=== PATIENT | female | born 1945 | race Caucasian/White ===

== ENCOUNTER 2022-03-26 12:48 | Outpatient (CLI) | payer MEDICARE, OTHER, SELFPAY | END 2022-03-26 12:49 | disposition home or self-care (01) | PROVIDERS: PCP Family Medicine; Visit Provider Family Medicine | DX: R01.1 Cardiac murmur, unspecified (principal); I51.7 Cardiomegaly; I34.0 Nonrheumatic mitral (valve) insufficiency | CPT/HCPCS: 93306 ==

== ENCOUNTER 2022-04-11 14:15 | Emergency (ER) | payer MEDICARE, OTHER, SELFPAY ==
[2022-04-11 14:27] VITALS: BP 147/74; PULSE 60; RESP 18; TEMP 36.4; O2SAT 98; BMI 24.0
--- NOTE | 2022-04-11 15:17 | ED_ITS ---
HPI - General Adult General Time Seen by Provider: 14:50 Date Seen: 04/11/22 Chief complaint: Unspecified Complaint, Adult Stated complaint: Covid+ Weak Diabetic Time Seen by Provider: 04/11/22 14:41 Source: patient, family and RN notes reviewed Mode of arrival: ambulatory Limitations: no limitations History of Present Illness HPI narrative: Jai is a very pleasant 77-year-old female with a history of type 2 diabetes, rheumatoid arthritis, and episodes of hypoglycemia who comes to the emergency room for evaluation of COVID symptoms. She and her are thinking that she would like Paxilovid. They did not come initially because they were hoping that this illness would resolve. Patient's had COVID recently and is feeling better. Patient tested when she was asymptomatic on ThursdayApril 07. She was positive. That evening she developed a runny nose, occasional diarrhea, and fatigue. She has continued to have those symptoms and her main complaint is that she has no appetite. She has some mild stomach discomfort. She has not had any vomiting. She does not have a fever. Denies shortness of breath or chest pain. Six weeks ago she had an episode of hypoglycemia and her primary MD Dr. Acosta took her off glipizide. She has had no subsequent problems. She is worried about eating because she is a diabetic. Patient has had continuing but not worsening fatigue and has been sleeping quite a bit. She denies history of DVT, calf tenderness or lower extremity edema. Related Data Home Medications Medication Instructions Recorded Confirmed atenolol 50 mg tablet mg 04/11/22 blood sugar diagnostic (Accu-Chek 04/11/22 04/11/22 Arlette Plus test strips) cyanocobalamin (vitamin B-12) mcg PO 04/11/22 1,000 mcg tablet,extended release glipizide 2.5 mg tablet, extended mg PO 04/11/22 release 24 hr hydrochlorothiazide 25 mg tablet mg 04/11/22 levothyroxine 100 mcg tablet mcg 04/11/22 levothyroxine 75 mcg tablet mcg 04/11/22 (Euthyrox) losartan 100 mg tablet mg 04/11/22 metformin 1,000 mg tablet mg 04/11/22 omeprazole 20 mg capsule,delayed mg 04/11/22 release simvastatin 20 mg tablet mg 04/11/22 triamcinolone acetonide 0.1 % applic TOPICAL 04/11/22 topical cream Allergies Allergy/AdvReac Type Severity Reaction Status Date / Time Sulfa Antibiotics Allergy Unknown Unknown Uncoded 04/02/22 13:52 Review of Systems Status of ROS: Reports: 10 or more systems reviewed and unremarkable except as noted in History and below Const: Reports: fatigue; Denies: fever or chills ENMT: Denies: throat pain Cardio: Denies: chest pain or shortness of breath with exertion Resp: Denies: shortness of breath or cough GI: Reports: abdominal pain and other (Anorexia) : Denies: painful urination Musculo: Denies: back pain Integ/Breast: Denies: rash Neuro: Denies: headache Endo: Reports: fatigue PFSH PFSH Medical History History of benign breast biopsy (1972) History of chronic cough Surgical History History of arthroscopy of left knee (2001) History of cataract extraction (2018) History of colonoscopy (03/02/13) History of hysterectomy for benign disease (2002) History of tonsillectomy and adenoidectomy (194) Family History Son Asthma Sister Breast cancer Mother Diabetes Father Heart disease Social History (Updated 04/02/22 @ 13:55 by Gerson Pate) Narrative: Exercise involving walking. 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 Non-smoker Rarely consumes alcohol Do you use any of these nicotine containing products: None Second hand tobacco smoke exposure: No How often do you have a drink containing alcohol: monthly or less How often do you have six or more drinks on one occasion: Never AUDIT-C Alcohol total score: 1 Non-prescribed substance use: denies use Exam Const: Vital Signs, click to edit/add: Vital Signs - 24 hr 04/11/22 14:27 04/11/22 17:33 Temperature 97.6 F Pulse Rate [Left P ulse Oximeter] 60 59 L Respiratory Rate 18 18 Blood Pressure [Le ft Upper Arm] 147/74 H 121/72 Pulse Oximetry 98 99 Documenting provider has reviewed patient's vital signs: yes Common normals: no apparent distress and oriented x3 General appearance: cooperative, comfortable and other (Gilchrist who answers most of her questions.) HENMT: Common normals: normocephalic and external ears normal Head and scalp: normocephalic Face and sinus: normal facial exam External ear: external ears normal Mouth: oral and palatal mucosa normal Eye: General eye: normal appearance of both eyes Neck & C-Spine: Common normals: full ROM, no lymphadenopathy and supple Resp: Common normals: normal respiratory effort and clear to auscultation bilaterally Auscultation: clear to auscultation bilaterally Cardio: Common normals: regular rate and regular rhythm Rate: regular rate Rhythm: regular rhythm GI: Common normals: Normal to inspection, nondistended, normoactive bowel sounds present, soft to palpation and non-tender Palpation: soft : Common normals: no CVA tenderness Bladder/kidney exam: no CVA tenderness Back & Pelvis: Common normals: no CVA tenderness Extremity: Common normals: normal to inspection and no pedal edema Neuro: Common normals: oriented x3 Psych: Common normals: mental status grossly normal Skin: Common normals: no rashes or lesions noted General skin exam: no rashes or lesions noted Course Course Hospital Course: At this time patient is stable with reassuring vital signs, normal oximetry, denying chest pain or shortness of breath and certainly given her age is a marcia date for Paxilovid. We will check a creatinine with a basic panel and cross check with her current medications. Reevaluation(s) Reevaluation #1: Patient has a creatinine of 1.4 but a creatinine clearance of 33. Given how close she was to the threshold greater than 30 for the use of packs of it I did talk to patient and her about risks and benefits. I then suggested the use of monoclonal antibodies as an alternative. They thought that would be a good idea. Unfortunately I was unable to obtain on appointment for them. I did talk to [facility]. They did take the information and said they would evaluate and call patient. The triage nurse was not sure that they would be open on the weekend. I am fearful that Jai will not actually have her information looked at until Thursday. I then spoke with 2 different facilities in the [facility] using the [facility] monoclonal antibody auctioneer tobacco. I was unable to obtain any appointments. With this I called patient back and suggested the use of remdesivir for 3 days. We spoke of risks and benefits and they were receptive to this plan. Vital Signs Vital signs: Initial Vital Signs Temperature 97.6 F 04/11/22 14:27 Temperature Source Temporal Artery Scan 04/11/22 14:27 Pulse Rate 60 04/11/22 14:27 Respiratory Rate 18 04/11/22 14:27 Blood Pressure 147/74 H 04/11/22 14:27 Blood Pressure Mean 98 04/11/22 14:27 Blood Pressure Position Sitting 04/11/22 14:27 Pulse Oximetry 98 04/11/22 14:27 Oxygen Delivery Method 04/11/22 14:27 Vital Signs Temperature 97.6 F 04/11/22 14:27 Pulse Rate 60 04/11/22 14:27 Respiratory Rate 18 04/11/22 14:27 Blood Pressure 147/74 H 04/11/22 14:27 Pulse Oximetry 98 04/11/22 14:27 Temperature 97.6 F 04/11/22 14:27 Pulse Rate 59 L 04/11/22 17:33 Respiratory Rate 18 04/11/22 17:33 Blood Pressure 121/72 04/11/22 17:33 Pulse Oximetry 99 04/11/22 17:33 Medical Decision Making MDM Narrative Medical decision making narrative: 1. COVID-patient presents to the ED on day 4 of COVID symptoms. Patient has risk factors for progression including type 2 diabetes, immunosuppression with treatment of rheumatoid arthritis with Remicade, hyperlipidemia, hypertension and advanced age of 77. She is not experiencing any respiratory symptoms at this time but is describing continued profound fatigue. Unfortunately I was unable to secure a monoclonal antibody appointment. Therefore will treat with remdesivir x3 days. According to [employer] and hospitalist consult with Dr. Mckeon we do not have to change dosing. We will arrange this as an outpatient on the medical-surgical floor. Information for the patient is included in my signed orders. 2. Disposition-patient was discharged home in the care of her . Lab Data Lab results reviewed: Yes I reviewed the patient's lab results Labs: Lab Results 04/11/22 Range/Units 15:30 Sodium 132 L (135-149) mmol/L Potassium 4.4 (3.6-5.1) mmol/L Chloride 99 (96-114) mmol/L Carbon Dioxide 24 (20-32) mmol/L BUN 39 H (7-30) mg/dL Creatinine 1.4 (0.5-1.5) mg/dL Estimated Creat Clear 28.14 Estimated GFR 38 ml/min Glucose 142 H (60-115) mg/dL Calcium 9.0 (8.4-10.6) mg/dL Discharge Plan Discharge Clinical Impression: COVID Patient Disposition: Home w/ Parent or Adult Condition: Unchanged Additional Instructions: I will call you with further instructions about possible monoclonal antibody administration for tomorrow. Continue to rest, push fluids as much as possible including Gatorade or broth. Return to the emergency room for worsening symptoms. Prescriptions: No Action cyanocobalamin (vitamin B-12) 1,000 mcg tablet extended release PO 0RF (DME) Accu-Chek Arlette Plus test strp Strip MISCELLANEOUS 0RF Label Comments: USE 1 STRIP TO CHECK GLUCOSE ONCE DAILY triamcinolone acetonide 0.1 % cream TOPICAL 0RF levothyroxine [Euthyrox] 75 mcg tablet 0RF levothyroxine 100 mcg tablet 0RF Label Comments: TAKE 1 TABLET BY MOUTH ONCE DAILY BEFORE BREAKFAST glipizide 2.5 mg tablet extended release 24hr PO 0RF Label Comments: TAKE 1 TABLET BY MOUTH ONCE DAILY BEFORE A MEAL simvastatin 20 mg tablet 0RF Label Comments: TAKE 1 TABLET BY MOUTH AT BEDTIME metformin 1,000 mg tablet 0RF Label Comments: TAKE 1 TABLET BY MOUTH TWICE DAILY WITH MEALS omeprazole 20 mg capsule,delayed release(DR/EC) 0RF Label Comments: TAKE 1 CAPSULE BY MOUTH ONCE DAILY BEFORE A MEAL hydrochlorothiazide 25 mg tablet 0RF Label Comments: TAKE 1 TABLET BY MOUTH ONCE DAILY losartan 100 mg tablet 0RF Label Comments: TAKE 1 TABLET BY MOUTH ONCE DAILY atenolol 50 mg tablet 0RF Label Comments: TAKE 1 TABLET BY MOUTH TWICE DAILY Follow Up/Referrals: Rut Acosta MD [Primary Care Provider] - Stand Alone [facility]
[2022-04-11 15:53] LABS: Chloride* 99 mmol/L (96-114); Potassium* 4.4 mmol/L (3.6-5.1); Sodium* 132 mmol/L (135-149)
[2022-04-11 15:56] LABS: Blood Urea Nitrogen* 39 mg/dL (7-30); Carbon Dioxide* 24 mmol/L (20-32); Creatinine* 1.4 mg/dL (0.5-1.5); Est. Creatinine Clearance* 28.14; Estimated Glomerular Filt Rate 38 ml/min
[2022-04-11 15:57] LABS: Glucose* 142 mg/dL (60-115)
[2022-04-11 17:33] VITALS: BP 121/72; PULSE 59; RESP 18; O2SAT 99
== END 2022-04-11 17:35 | disposition home or self-care (01) ==
PROVIDERS: Emergency Provider Family Medicine; PCP Family Medicine
DX: U07.1 COVID-19 (principal)
CPT/HCPCS: 36415; 80048; 99283; 99284

== ENCOUNTER 2022-04-13 11:26 | Outpatient (RCR) | payer MEDICARE, OTHER, SELFPAY ==
[2022-04-12 12:55] VITALS: BP 109/58; PULSE 60; RESP 16; TEMP 36.3; O2SAT 99
--- NOTE | 2022-04-12 13:41 | PC.NURSE ---
Addendum entered by Aparna Nava RN 04/12/22 15:19: Add: Infusion completed w/out difficulty. IV remains in place in left forearm, wrapped in Coban and pt. given emesis bags w/verbal instruction on how to wrap IV during bathing/showering. Plan is for her to return at same time tomorrow. Addendum entered by Aparna Nava RN 04/12/22 13:46: Add: Infusion actually started at 1247. Original Note: Pt. was met at vehicle by RN for scheduled infusion on M/S unit. Difficult IV start; after 3 failed attempts by RN, called housekeeping supervisor Ronnell for assist. Successful attempt this time, 22g in left forearm. Infusion finally able to be started at 1300. Pt. currently tolerating infusion without difficulty.
[2022-04-12 14:58] VITALS: BP 144/80; PULSE 56; RESP 17; TEMP 36.3; O2SAT 98
[2022-04-13 11:39] VITALS: BP 123/81; PULSE 64; RESP 16; TEMP 36.7; O2SAT 97
[2022-04-13 13:43] VITALS: BP 105/66; PULSE 70; RESP 18; TEMP 36.6; O2SAT 97
[2022-04-14 11:46] VITALS: BP 127/68; PULSE 52; RESP 16; TEMP 36.5; O2SAT 96
--- NOTE | 2022-04-14 13:18 | PC.NURSE ---
Outpatient-- Pt given outpatient infusion of Remdesivir. VSS and pt is afebrile. SPO2>94% on RA. Pt tolerated the procedure well and was discharged to home with ambulatory.
== END 2022-04-13 23:59 | disposition home or self-care (01) ==
LOC: MS OUT 11:26
PROVIDERS: PCP Family Medicine; Visit Provider Family Medicine
DX: U07.1 COVID-19 (principal); E11.9 Type 2 diabetes mellitus without complications; M06.9 Rheumatoid arthritis, unspecified; I10 Essential (primary) hypertension
CPT/HCPCS: 96365; 99211; J7050

== ENCOUNTER 2022-06-30 14:56 | Outpatient (CLI) | payer MEDICARE, OTHER, SELFPAY ==
[2022-06-30 09:30] LABS: Chloride* 99 mmol/L (96-114)
[2022-06-30 09:31] LABS: Albumin* 4.4 g/dL (3.3-5.0); Potassium* 4.3 mmol/L (3.6-5.1); Sodium* 138 mmol/L (135-149)
[2022-06-30 09:33] LABS: Carbon Dioxide* 28 mmol/L (20-32); Creatinine* 1.3 mg/dL (0.5-1.5); Estimated Glomerular Filt Rate 42 ml/min
[2022-06-30 09:34] LABS: Alanine Aminotransferase* 11 U/L (4-35); Alkaline Phosphatase* 57 U/L (40-150); Bilirubin Total* 0.8 mg/dL (0.1-1.5); Blood Urea Nitrogen* 30 mg/dL (7-30); Glucose* 124 mg/dL (60-115); Total Protein* 7.3 g/dL (6.0-8.3)
[2022-06-30 09:48] LABS: Aspartate Amino Transferase* 25 U/L (12-35)
[2022-06-30 10:21] LABS: Vitamin B12* 838 pg/mL (243-894)
[2022-06-30 10:40] LABS: Free T4 Free Thyroxine* 1.52 ng/dL (0.70-1.85)
== END 2022-06-30 14:57 | disposition home or self-care (01) ==
PROVIDERS: PCP Family Medicine; Visit Provider Family Medicine
DX: E03.9 Hypothyroidism, unspecified (principal); R53.83 Other fatigue; E53.8 Deficiency of other specified B group vitamins; I10 Essential (primary) hypertension; E11.9 Type 2 diabetes mellitus without complications; E78.5 Hyperlipidemia, unspecified; D64.9 Anemia, unspecified
CPT/HCPCS: 80053; 82607; 84439; 84443

== ENCOUNTER 2022-10-30 07:46 | Outpatient (CLI) | payer MEDICARE, OTHER, SELFPAY ==
[2022-10-30 09:54] LABS: Albumin* 3.9 g/dL (3.3-5.0); Chloride* 102 mmol/L (96-114); Sodium* 137 mmol/L (135-149)
[2022-10-30 09:56] LABS: Carbon Dioxide* 28 mmol/L (20-32); Cholesterol* 165 mg/dL (90-199); Creatinine* 1.1 mg/dL (0.5-1.5); Estimated Glomerular Filt Rate 51 ml/min
[2022-10-30 09:57] LABS: Alkaline Phosphatase* 49 U/L (40-150); Aspartate Amino Transferase* 25 U/L (12-35); Bilirubin Total* 0.7 mg/dL (0.1-1.5); Blood Urea Nitrogen* 34 mg/dL (7-30); Calcium* 9.4 mg/dL (8.4-10.6); Glucose* 132 mg/dL (60-115); HDL Cholesterol* 65 mg/dL (>=50); LDL Cholesterol Calculated 79 mg/dL (<100); Triglycerides* 102 mg/dL (40-149)
[2022-10-30 09:58] LABS: Potassium* 4.7 mmol/L (3.6-5.1)
[2022-10-30 10:01] LABS: Alanine Aminotransferase* 16 U/L (4-35)
[2022-10-30 10:27] LABS: TSH With Reflex to FT4* 0.825 uIU/mL (0.270-4.200)
[2022-10-30 10:31] LABS: Ferritin* 12.3 ng/mL (11.1-264.0)
[2022-10-30 10:46] LABS: Vitamin B12* 923 pg/mL (243-894)
== END 2022-10-30 07:47 | disposition home or self-care (01) ==
LOC: NFLDREF 07:46
PROVIDERS: PCP Family Medicine; Visit Provider Family Medicine
DX: E03.9 Hypothyroidism, unspecified (principal); D64.9 Anemia, unspecified; E11.9 Type 2 diabetes mellitus without complications; I10 Essential (primary) hypertension; E53.8 Deficiency of other specified B group vitamins
CPT/HCPCS: 80053; 80061; 82043; 82570; 82607; 82728; 84443

== ENCOUNTER 2022-12-11 14:08 | Outpatient (CLI) | payer MEDICARE, OTHER, SELFPAY ==
--- NOTE | 2022-12-11 14:30 | CRLHL7_ITS ---
For Patients: As a result of the Century Cures Act, medical imaging exams and procedure reports are released immediately into your electronic medical record. You may view this report before your referring provider. If you have questions, please contact your health care provider. DXA BONE MINERAL DENSITY STUDY Reason for exam: Osteopenia. Current height (in): 64. Weight (lb): 140. Menopause age: 48. Ethnicity: White. 1. Have you had a previous hip or vertebral fracture? No. 2. Have you had any fractures during your adult life which did not result from significant trauma (e.g., auto accident)? No. 3. Did either of your parents have a hip fracture? No. 4. Do you smoke? No. 5. Have you ever taken Glucocorticoids? No. 6. Do you have rheumatoid arthritis? No. 7. Do you have secondary osteoporosis? No. 8. Do you drink 3 or more alcoholic drinks per day? No. 9. Are you being treated for osteoporosis? No. 10. Have you ever taken any of the following medications: Actonel, Evista, Fosamax, Miacalcin, Reclast, Boniva, Forteo, HRT (i.e., estrogen/hormone therapy), Protelos, Prolia, Vitamin D, Calcium, other ??? please specify. ANSWER: No. 11. Do you have any of the following medical conditions: Anorexia or bulimia, asthma or emphysema, end stage renal disease, hyperparathyroidism, any seizure disorders, cancer, inflammatory bowel diseases, hysterectomy, other ??? please specify. ANSWER: Yes, hysterectomy. 12. What was your maximum height (inches)? 65. 13. Do you perform weight bearing exercise regularly? No. 14. Do you regularly consume dairy products? Yes. 15. Do you drink caffeinated beverages? Yes. If female: 16. At what age did your period start? 11. 17. Are you premenopausal? No. 18. How many full-term pregnancies have you had? 4. 19. Have you ever missed your period for more than 6 months in a row (not including or menopause)? No. TECHNIQUE: Bone mineral density study was performed using the [facility]. FINDINGS: The results of the study expressed as bone mineral density (BMD) are as follows: Lumbar spine L3 to L4: BMD: 1.100 g/cm2. T-score: 0.0. Z-score: 2.8 Neck Left: BMD: 0.693 g/cm2. T-score: -1.4. Z-score: 0.9 Right: BMD: 0.733 g/cm2. T-score: -1.0. Z-score: 1.3 Total Left: BMD: 0.812 g/cm2. T-score: -1.1. Z-score: 1.0 Right: BMD: 0.760 g/cm2. T-score: -1.5. Z-score: 0.6 IMPRESSION: Osteopenia. FRAX 10-year Fracture Risk Major Osteoporotic Fracture: 13% Hip Fracture: 3.0% Reported Risk Factors: [place] () Neck BMD=0.693, BMI= 24.0 Johny Abbott M.D. Diagnostic Radiologist [email or web address] LUIS/alfreda gant/Dictated by: Johny Abbott MD @ 12/11/2022 3:01:00 PM (Electronically Signed)
== END 2022-12-11 14:09 | disposition home or self-care (01) ==
LOC: RAD 14:10
PROVIDERS: PCP Family Medicine; Visit Provider Internal Medicine Rheumatology
DX: M85.80 Other specified disorders of bone density and structure, unspecified site (principal); M85.89 Other specified disorders of bone density and structure, multiple sites; Z78.0 Asymptomatic menopausal state
CPT/HCPCS: 77080

== ENCOUNTER 2023-02-17 14:21 | Outpatient (CLI) | payer MEDICARE, OTHER, SELFPAY ==
--- NOTE | 2023-02-17 14:40 | CRLHL7_ITS ---
For Patients: As a result of the Century Cures Act, medical imaging exams and procedure reports are released immediately into your electronic medical record. You may view this report before your referring provider. If you have questions, please contact your health care provider. BILATERAL SCREENING MAMMOGRAM WITH COMPUTER-AIDED DETECTION AND TOMOSYNTHESIS TECHNIQUE: CC and MLO views were obtained. These mammographic images have been obtained using full-field digital technique. These mammographic images were interpreted with the benefit of computer-aided detection. Breast Tomosynthesis was used in this interpretation. COMPARISON FILM: No comparison available. FINDINGS: There are scattered areas of fibroglandular density IMPRESSION: There is no radiographic evidence for malignancy. ASSESSMENT: BI-RADS Category 2: Benign RECOMMENDATION: Routine screening mammogram in 1 year. A lay language report of this examination will be provided to the patient. Johny Abbott M.D. Diagnostic Radiologist [email or web address] VENITA/Dictated by: Johny Abbott MD @ 03/04/2023 12:40:00 PM (Electronically Signed)
== END 2023-02-17 14:22 | disposition home or self-care (01) ==
PROVIDERS: PCP Family Medicine; Visit Provider Family Medicine
DX: Z12.31 Encounter for screening mammogram for malignant neoplasm of breast (principal)
CPT/HCPCS: 77063; 77067

== ENCOUNTER 2023-05-06 09:37 | Outpatient (CLI) | payer MEDICARE, OTHER, SELFPAY | END 2023-05-06 09:38 | disposition home or self-care (01) | LOC: NFLDREF 09:38 | PROVIDERS: PCP Family Medicine; Visit Provider Family Medicine | DX: E11.22 Type 2 diabetes mellitus with diabetic chronic kidney disease (principal); N18.31 Chronic kidney disease, stage 3a | CPT/HCPCS: 80053; 82043; 82306; 82570; 82728 ==

== ENCOUNTER 2023-05-07 13:00 | Outpatient (CLI) | payer MEDICARE, OTHER, SELFPAY | END 2023-05-07 13:01 | disposition home or self-care (01) | LOC: NFLDREF 05-08 07:24 | PROVIDERS: PCP Family Medicine; Referring Provider Family Medicine; Visit Provider Family Medicine | DX: E11.9 Type 2 diabetes mellitus without complications (principal) | CPT/HCPCS: 82043; 82570 ==

== ENCOUNTER 2023-06-24 10:44 | Outpatient (REF) | payer MEDICARE, OTHER, SELFPAY ==
[2023-06-24 11:28] LABS: Cholesterol* 159 mg/dL (90-199)
[2023-06-24 11:29] LABS: HDL Cholesterol* 50 mg/dL (>=50); LDL Cholesterol Calculated 85 mg/dL (<100); Triglycerides* 122 mg/dL (40-149)
== END 2023-06-24 10:45 | disposition home or self-care (01) ==
LOC: NPINS 10:44
PROVIDERS: PCP Family Medicine; Visit Provider Physician Assistant
DX: E78.5 Hyperlipidemia, unspecified (principal)
CPT/HCPCS: 80061

== ENCOUNTER 2024-01-04 09:32 | Outpatient (CLI) | payer MEDICARE, OTHER, SELFPAY ==
--- OUTSIDE RECORDS SUMMARY | 2024-01-06 07:19 | XMS_ITS | Clinical Summary ---
Author Name Unknown Organization [facility] Address [address] [place] [address] Care Team Providers Care Channel Sales Director Name Role Phone Unavailable Primary Care Provider Unavailabl e Source Comments Patient records contain information from all sites at [facility]. For routine questions regarding patient records, call [phone] during business hours, M-F 8:00 AM - 5:00 PM Central Time. Record requests for emergency care only can be directed to [phone] at any time.[facility] Medications Medication Sig Dispensed Refills Start Date End Date Status aspirin [address] tablet Take 81 mg by mouth daily. 10/29/2010 Active atenoloL (TENORMIN) 50 mg tablet Take 1 tablet by mouth 2 (two) times a day. 2022 Active folic acid 800 mcg tablet Take 800 mcg by mouth. Active glipiZIDE (GLUCOTROL XL) 2.5 mg 24 hr tablet Take 2.5 mg by mouth. 12/06/2021 Active hydroCHLOROthiazide (HYDRODIURIL) 25 mg tablet Take 1 tablet by mouth daily. 2022 Active hydrOXYzine (ATARAX) 25 mg tablet Take 25 mg by mouth. 02/27/2022 Active levothyroxine (SYNTHROID, LEVOTHROID) 100 mcg tablet Take 1 tablet by mouth every morning before breakfast. 12/10/2021 Active losartan (COZAAR) 100 mg tablet Take 100 mg by mouth. 12/06/2021 Active metFORMIN (GLUCOPHAGE) 1,000 mg tablet Take 1 tablet by mouth 2 (two) times a day with meals. 01/29/2022 Active omeprazole (PriLOSEC) [address] capsule Take 20 mg by mouth. 2022 Active simvastatin (ZOCOR) 20 mg tablet Take 1 tablet by mouth at bedtime. 2022 Active triamcinolone (KENALOG) 0.1 % cream Apply topically. 02/27/2022 Active Active Problems Problem Noted Date Diagnosed Date Diabetes Mellitus Type 2 12/06/2021 Arthritis Rheumatoid 09/23/2012 Hypertensive Chronic Kidney Disease (CKD) Stage 3a Glomerular Filtration Rate (GFR) 45 To 59 09/23/2012 Social History Tobacco Use Types Packs/Day Years Used Date Smoking Tobacco: Never Assessed Nutrition Answer Date Recorded Nutrition: EVOO Fat Source Unknown 04/11 Nutrition: Servings of Fruits/Vegetables per Day Not on file 04/11/2022 Dental Answer Date Recorded Dental: Regular Dentist Unknown 04/11/20 Sex and Gender Information Value Date Recorded Sex Assigned at Not on file Gender Identity Not on file Sexual Orientation Not on file Plan of Treatment Health Maintenance Due Date Last Done Comments Diabetic Office Visit with F oot Exam 1943 Dilated Eye Exam 1943 Hemoglobin A1C 1943 Office Visit for Blood Press ure Check / Re-check 1943 Urine Albumin 1943 Zoster Vaccines (1 of 2) 1993 Creatinine Level (Kidney Fun ction Test) 12/06/2022 12/06/2021, 07/09/2021, 12/11/2020, Additional history exists Potassium Level 12/06/2022 12/06/2021, 06/21, 12/11/2020, Additional history exists Sodium Level 12/06/2022 12/06/2021, 06/21, 12/11/2020, Additional history exists Thyroid Stimulating Hormone (TSH) test for thyroid function 12/06/2022 12/06/2021, 10/08/2021, 07/09/2021, Additional history exists Depression Screening (Annual PHQ-2) 09/21/2023 Fall Risk Screen (Annual) 09/21/2023 DTaP,Tdap,and Td Vaccines (2 - Td or Tdap) 10/13/2023 10/13/2013 Pneumococcal vaccine (65+ years) Completed 11/13/2015, 11/13/2015, 10/24/2008, Additional history exists COVID-19 Vaccine Completed 07/01/2023, , 07/21/2022, Additional history exists Influenza Vaccine Completed 07/01/2023, , 07/13/2021, Additional history exists Procedures Procedure Name Priority Date/Time Associated Diagnosis Comments EXTI THYROID-STIMULATING HORMONE-SENSITIVE (S-TSH), S Routine 12/06/2021 10:05 AM CDT EXTI COMPREHENSIVE METABOLIC PANEL, S/P Routine 12/06/2021 10:05 AM CDT from Last 3 Months or Most Recently Relevant to [place] [address]
--- OUTSIDE RECORDS SUMMARY | 2024-01-06 07:19 | XMS_ITS ---
Author Name Unknown Organization [facility] Address [address] [place] [address] Care Team Providers Care Fire Truck Driver Name Role Phone Unavailable Unavailable Unavailable Surgery Details Not on file Complications Check Surgery Details section. Procedure Estimated Blood Loss Check Surgery Details section. Procedure Findings Check Surgery Details section. Procedure Specimens Taken Check Surgery Details section.
--- OUTSIDE RECORDS SUMMARY | 2024-01-06 07:19 | XMS_ITS | Clinical Summary ---
Author Name Unknown Organization [facility] Address [place], [place] [address] Care Team Providers Care Rating Officer Name Role Phone Unavailable Primary Care Provider Unavailabl e Allergies Active Allergy Reactions Criticality Noted Date Comments Sulfa (Sulfonamide Antibiotics) *Unknown 01/20 Medications Medication Sig Dispensed Refills Start Date End Date Status aspirin 81 mg tablet Take 81 mg by mouth once daily. Daily at bedtime 10/29/2010 Active MULTIVITS W-FE,OTHER MIN (CENTRUM ORAL) Take by mouth. Senior womans vitamin Active folic acid 800 mcg tablet Take 800 mcg by mouth once daily. Active glipiZIDE extended-release (GLUCOTROL XL) 2.5 mg Extended-Release tabletIndications:Ty pe 2 diabetes mellitus without complication, without long-term current use of insulin (HC) Take 1 Tablet (2.5 mg) by mouth once daily before a meal. 90 Tablet 1 12/06/2021 Active blood sugar diagnostic (Blood Glucose Test) stripIndications:Typ e 2 diabetes mellitus without complication, without long-term current use of insulin (HC) Test 1 times per day.E11.9 300 Each 3 12/06/2021 Active levothyroxine (SYNTHROID) 100 mcg tabletIndications:Hy pothyroidism, unspecified type Take 1 Tablet (100 mcg) by mouth before breakfast. 90 Tablet 12/10/2021 Active metFORMIN (GLUCOPHAGE) 1,000 mg tabletIndications:Ty pe 2 diabetes mellitus without complication, without long-term current use of insulin (HC) TAKE 1 TABLET BY MOUTH TWICE DAILY WITH MEALS 180 Tablet 01/29/2022 Active atenoloL (TENORMIN) 50 mg tabletIndications:Es sential hypertension Take 1 tablet by mouth twice daily 180 Tablet 2 2022 Active hydroCHLOROthiazide (HCTZ) 25 mg tabletIndications:Es sential hypertension Take 1 tablet by mouth once daily 90 Tablet 2 2022 Active triamcinolone (ARISTOCORT; KENALOG) 0.1 % creamIndications:Tic k bite of abdomen, initial encounter Apply topically to affected area(s) 4 times daily. For itching bug bite rash 60 g 02/27/2022 Active hydrOXYzine HCL (ATARAX) 25 mg tabletIndications:Ti ck bite of abdomen, initial encounter Take 1 Tablet (25 mg) by mouth every 6 hours if needed for Itching. Careful of sedation 25 Tablet 02/27/2022 Active simvastatin (ZOCOR) 20 mg tabletIndications:Hy percholesterolemia TAKE 1 TABLET BY MOUTH AT BEDTIME 30 Tablet 07/23/2022 Active losartan (COZAAR) 100 mg tabletIndications:Es sential hypertension Take 1 tablet by mouth once daily 90 Tablet 10/22/2022 Active omeprazole (PRILOSEC) 20 mg Delayed-Release capsuleIndications:C hronic GERD TAKE 1 CAPSULE BY MOUTH ONCE DAILY BEFORE A MEAL 90 Capsule 10/24/2022 Active Active Problems Problem Noted Date Diagnosed Date Type 2 diabetes mellitus wit h other specified complication, without long-term current use of insulin 12/06/2021 Urinary tract infection without hematuria 2015 GERD (gastroesophageal reflux disease) 3 HTN (hypertension) 09/23/2012 Hypothyroid 09/23/2012 RA (rheumatoid arthritis) 09/23/2012 Resolved Problems Problem Noted Date Diagnosed Date Resolved Date DM (diabetes mellitus) 09/23/201212/06 Immunizations Name Administration Dates Next Due COVID-19 vaccine (Moderna 100mcg/0.5mL) PF, MDV 06/28/2021 COVID-19 vaccine (Pfizer-Bio NTech 30mcg/0.3mL) PF, MDV 12/05/2020,11/14/2020 Hepatitis A (Adult) 02/21/2019 Influenza RIV4 (Age 18+ Year s) PRESERV FREE 06/26/2020,07/20/2019 Influenza, High-dose Inactivated 08/25/2018,10/0 01/2017,09/08/2011 Influenza, High-dose Quadriv alent Inactivated 07/03/2021 Influenza, IIV3 (Age >=3 years) 12/20/19 11,11/18/2010,10/21/2010,2009,07/27/2006 Influenza, IIV4 07/13/2021 Pneumococcal Poly,23-Valent (Pneumovax) 11/13/2015,10/24/2008 Pneumococcal conj 13-Valent (Prevnar 13) 11/13/2015,10/24/2008 Tdap 10/13/2013 Family History Medical History Relation Name Comments Cancer-breast Maternal Aunt Cancer-breast Sister Relation Name Status Comments Maternal Aunt Maternal Uncle Diagnosed in her 60's Sister Alive Social History Tobacco Use Types Packs/Day Years Used Date Smoking Tobacco: Never Smokeless Tobacco: Never Tobacco Cessation:Counseling Given: No Alcohol Use Standard Drinks/Week Comments Yes 0 (1 standard drink = 0.6 oz pur e alcohol) PHQ-2 Answer Date Recorded PHQ-2 TOTAL SCORE 0 12/06/2021 Social Connections Answer Date Recorded Frequency of Communication with Friends and Fami ly Not on file 03/02/2023 Financial Resource Strain Answer Date R ecorded Difficulty of Paying Living Expenses 3 02/27/2022 Difficulty of Paying Living Expenses Not on file 02/27/2022 Food Insecurity Answer Date Recorded Worried About Running Out of Food in the Last Ye ar 1 02/27/2022 Transportation Needs Answer Date Record ed Lack of Transportation (Medical) 1 02/27/2022 Housing Stability Answer Date Recorded Unable to Pay for Housing in the Last Year 1 02/27/2022 Sex and Gender Information Value Date Recorded Sex Assigned at Not on file Gender Identity Not on file Sexual Orientation Not on file Obstetrics History Last Filed Vital Signs Vital Sign Reading Time Taken Comments Blood Pressure 133/78 02/27/2022 12:51 PM CDT Pulse 67 02/27/2022 12:51 PM CDT Temperature 36.5 ??C (97.7 ??F) 02/27/2022 12:51 PM C DT Respiratory Rate 12 02/27/2022 12:51 PM CDT Oxygen Saturation 99% 02/27/2022 12:51 PM CDT Inhaled Oxygen Concentration - - Weight 65.3 kg (144 lb) 12/06/2021 9:20 AM CDT Height 150.5 cm (4' 11.25) 12/06/2021 9:20 AM C DT Body Mass Index 28.84 12/06/2021 9:20 AM CDT Plan of Treatment Health Maintenance Due Date Last Done Comments Zoster (shingles) series for age 50+ (1 of 2) 1993 DEXA/DXA scan for age 65+ 02/01/2008 BMI (ht and wt on same day) for age 18+ 12/06/2022 12/06/2021, 12/11/2020 Depression screening for age 12+ 12/06/2022 12/07/19, 07/09/2021 Medicare Wellness for age 65+ 12/07/2022, 07/24/2020 (Completed outside of [facility]) COVID-19 vaccine series ( season) 2023 01/17/2022, 06/28/2021, 12/05/2020, Additional history exists Tetanus booster 10/13/2023 10/13/2013 Influenza for age 65+ 05/22/2024 07/13/2021 , 07/03/2021, 06/26/2020, Additional history exists Tdap Completed 10/13/2013 Pneumococcal series for age 65+ Completed 11/13/2015, 11/13/2015, 10/24/2008, Additional history exists Medical Devices Implanted Type Area Repair Manager Device Identifier Shelf Expiration Date Model / Serial / Lot Mesh Y-Sling Intepro Lg - [id number] Implanted:Qty: 1 on 10/29/2010 at [facility] Vagina [employer] 04/29/2011 [id number] / / [id number] Device Tvt Exact Retropubic Sys Sling - [id number] Implanted:Qty: 1 on 10/29/2010 at [facility] Bilateral: Urethra J And J [employer] W[employer]ens H / Uro 06/21/2011 [id number]# / / [id number] Advance Directives * Full Code (Latest Code Status on File) Date Activated Date Inactivated Comments 10/29/2010 11:47 AM 10/31/2010 2:03 PM
--- OUTSIDE RECORDS SUMMARY | 2024-01-06 07:19 | XMS_ITS | Referral Summary ---
Author Name Unknown Organization [facility] Address [address] [place] [address] Care Team Providers Care Rubber Extrusion Machine Operator Name Role Phone Unavailable Primary Care Provider Unavailabl e Source Comments Patient records contain information from all sites at [facility]. For routine questions regarding patient records, call [phone] during business hours, M-F 8:00 AM - 5:00 PM Central Time. Record requests for emergency care only can be directed to [phone] at any time.[facility] Medications Medication Sig Dispensed Refills Start Date [...] Orientation Not on file Plan of Treatment Not on file Procedures Procedure Name Priority Date/Time Associated Diagnosis Comments EXTI THYROID-STIMULATING HORMONE-SENSITIVE (S-TSH), S Routine 12/06/2021 10:05 AM CDT EXTI COMPREHENSIVE METABOLIC PANEL, S/P Routine 12/06/2021 10:05 AM CDT from Last 3 Months or Most Recently Relevant [place] [id number]
== END 2024-01-04 09:33 | disposition home or self-care (01) ==
LOC: NFLDREF 01-06 07:18
PROVIDERS: PCP Family Medicine; Referring Provider Family Medicine; Visit Provider Family Medicine
DX: E03.9 Hypothyroidism, unspecified (principal); E11.9 Type 2 diabetes mellitus without complications; E53.8 Deficiency of other specified B group vitamins; I10 Essential (primary) hypertension; D64.9 Anemia, unspecified
CPT/HCPCS: 80053; 82607; 84443

== ENCOUNTER 2024-02-29 13:48 | Outpatient (CLI) | payer MEDICARE, OTHER, SELFPAY ==
--- OUTSIDE RECORDS SUMMARY | 2024-02-29 13:51 | XMS_ITS | Referral Summary ---
Author Organization [facility] Address [address] [place] [address] Care Team Providers Care Jewelry Manager Name Role Phone Unavailable Primary Care Provider Unavailabl e Source Comments Patient records contain information from all sites at [facility]. For routine questions regarding patient records, call [phone] during business hours, M-F 8:00 AM - 5:00 PM Central Time. Record requests for emergency care only can be directed to [phone] at any time.[facility] Medications Medication Sig Dispensed Refills Start [...] Relevant to [place] [id number]
--- OUTSIDE RECORDS SUMMARY | 2024-02-29 13:51 | XMS_ITS ---
Author Organization [facility] Address [address] [place] [address] Care Team Providers Care Hat Brim And Crown Laminating Operator Name Role Phone Unavailable Unavailable Unavailable Surgery Details Not on file Complications Check Surgery Details section. Procedure Estimated Blood Loss Check Surgery Details section. Procedure Findings Check Surgery Details section. Procedure Specimens Taken Check Surgery Details section.
--- OUTSIDE RECORDS SUMMARY | 2024-02-29 13:51 | XMS_ITS | Clinical Summary ---
Author Organization [facility] Address [address] [place] [address] Care Team Providers Care Wind Turbine Technician Name Role Phone Unavailable Primary Care Provider Unavailabl e Source Comments Patient records contain information from all sites at [facility]. For routine questions regarding patient records, call [phone] during business hours, M-F 8:00 AM - 5:00 PM Central Time. Record requests for emergency care only can be directed to [phone] at any time.[facility] Medications Medication Sig Dispensed Refills Start [...] (2 - Td or Tdap) 10/13/2023 10/13/2013 COVID-19 Vaccine (8 - 2022-2 4 season) 2023 07/01/2023, 02/06/2023, 07/21/2022, Additional history exists Pneumococcal vaccine (65+ years) Completed 11/13/2015, 11/13/2015, 10/24/2008, Additional history exists Influenza Vaccine Completed 07/01/2023, , 07/13/2021, Additional history exists Procedures Procedure Name Priority Date/Time Associated Diagnosis Comments EXTI THYROID-STIMULATING HORMONE-SENSITIVE (S-TSH), S Routine 12/06/2021 10:05 AM CDT EXTI COMPREHENSIVE METABOLIC PANEL, S/P Routine 12/06/2021 10:05 AM CDT from Last 3 Months or Most Recently Relevant to [place] [id number]
--- OUTSIDE RECORDS SUMMARY | 2024-02-29 13:51 | XMS_ITS | Clinical Summary ---
Author Organization [facility] Address [place], [place] [address] Care Team Providers Care Manager Hotel Name Role Phone Unavailable Primary Care Provider [...] age 65+ 12/07/2022, 07/24/2020 (Completed outside of [facility]) COVID-19 vaccine series ( season) 2023 01/17/2022, 06/28/2021, 12/05/2020, Additional history exists Tetanus booster 10/13/2023 10/13/2013 Influenza for age 65+ 05/22/2024 07/13/2021 , 07/03/2021, 06/26/2020, Additional history exists Tdap Completed 10/13/2013 Pneumococcal series for age 65+ Completed 11/13/2015, 11/13/2015, 10/24/2008, Additional history exists Medical Devices Implanted Type Area Hunter Guide Device Identifier Shelf Expiration Date Model / Serial / Lot Mesh Y-Sling Intepro Lg - [id number] Implanted:Qty: 1 on 10/29/2010 at [facility] Vagina [employer] 04/29/2011 [id number] / / [id number] Device Tvt Exact Retropubic Sys Sling - [id number] Implanted:Qty: 1 on 10/29/2010 at [facility] Bilateral: Urethra J And J [employer] Womens H / Uro 06/21/2011 [id number]# / / [id number] Advance Directives * Full Code (Latest Code Status on File) Date Activated Date Inactivated Comments 10/29/2010 11:47 AM 10/31/2010 2:03 PM
--- NOTE | 2024-02-29 14:00 | CRLHL7_ITS ---
For Patients: As a result of the Century Cures Act, medical imaging exams and procedure reports are released immediately into your electronic medical record. You may view this report before your referring provider. If you have questions, please contact your health care provider. BILATERAL SCREENING MAMMOGRAM WITH COMPUTER-AIDED DETECTION AND TOMOSYNTHESIS TECHNIQUE: CC and MLO views were obtained. These mammographic images have been obtained using full-field digital technique. These mammographic images were interpreted with the benefit of computer-aided detection. Breast Tomosynthesis was used in this interpretation. COMPARISON FILM: 02/17/23, 11/05/21, 08/13/20. FINDINGS: There are scattered areas of fibroglandular density IMPRESSION: There is no radiographic evidence for malignancy. ASSESSMENT: BI-RADS Category 2: Benign RECOMMENDATION: Routine screening mammogram in 1 year. A lay language report of this examination will be provided to the patient. Johny Abbott M.D. Diagnostic Radiologist [email or web address] VENITA/Dictated by: Johny Abbott MD @ 03/01/2024 9:55:00 AM (Electronically Signed)
== END 2024-02-29 13:49 | disposition home or self-care (01) ==
PROVIDERS: PCP Family Medicine; Visit Provider Family Medicine
DX: Z12.31 Encounter for screening mammogram for malignant neoplasm of breast (principal)
CPT/HCPCS: 77063; 77067

== ENCOUNTER 2024-06-20 23:53 | Emergency (ER) | payer MEDICARE, OTHER, SELFPAY ==
[2024-06-21 00:20] VITALS: BP 145/78; PULSE 75; RESP 20; TEMP 36.7; O2SAT 99; BMI 24.0
--- NOTE | 2024-06-21 00:43 | ED.GENADULT ---
HPI - General Adult General Chief complaint: Epistaxis/Nosebleed Stated complaint: nose bleed Time Seen by Provider: 06/21/24 00:24 Source: patient and family Mode of arrival: ambulatory History of Present Illness HPI narrative: 79-year-old female anticoagulated on aspirin presents to the emergency department for evaluation of nose bleed. This started about 2 hours prior to arrival. No trauma or injury. Does not use Coumadin Plavix, Xarelto or other stronger blood thinners. She reports that she tried plugging her nose but demonstrates to me that it was just at the tip of the nares and this did not seem to help. Bleeding did seem to improve on route to the ED and she believes that has stopped at this time. No headache, no neurological changes, no vision changes. No recent changes in medications. Blood pressures have been stable. Does get nosebleeds from time to time, not frequently. No prior history of nasal surgery or cautery. No recent unusual exposures to cold or altitude. Did not try any other measures prior to coming to ED. Past medical history notable for rheumatoid arthritis, dementia, type 2 diabetes, hypertension. Medications reviewed, family sit states that these are accurate. ROS notable for the HEENT symptoms as above only. Otherwise denies other generalized, HEENT, skin, musculoskeletal, neurological or vision changes. Related Data Home Medications ?Medication ?Instructions ?Recorded ?Confirmed aspirin 81 mg tablet,delayed 81 mg PO QDAY 01/07/24 01/07/24 release (Adult Aspirin Regimen) donepezil 10 mg tablet 10 mg PO QDAY 01/07/24 01/07/24 Previous Rx's ?Medication ?Instructions ?Recorded lancing device with lancets kit #100 ea 04/18/22 (Accu-Chek FastClix Lancing Device kit) cyanocobalamin (vitamin B-12) 1,000 mcg PO QDAY #90 tabs 07/02/22 1,000 mcg tablet,extended release lancets #100 ea 10/13/22 lancets (Accu-Chek Fastclix Lancet #100 ea 10/16/22 Drum) iron,carbonyl 65 mg-vitamin C 125 1 tab PO QDAY #90 tabs 02/06/23 mg tablet,delayed release (Vitron-C) rosuvastatin 10 mg tablet 10 mg PO QDAY #90 tabs 01/07/24 losartan 100 mg tablet 100 mg PO QDAY #90 tabs 01/11/24 metformin 500 mg tablet,extended 500 mg PO BID #180 tabs 02/02/24 release 24 hr atenolol 50 mg tablet 50 mg PO BID #180 tabs 02/05/24 omeprazole 20 mg capsule,delayed 20 mg PO QDAY #90 caps 02/05/24 release hydrochlorothiazide 25 mg tablet 25 mg PO QDAY #90 tabs 02/11/24 levothyroxine 100 mcg tablet 100 mcg PO QDAY #90 tabs 03/30/24 blood sugar diagnostic (Accu-Chek #100 ea 05/25/24 Arlette Plus test strips) Allergies Allergy/AdvReac Type Severity Reaction Status Date / Time Sulfa Antibiotics Allergy Unknown Unknown Uncoded 01/07/24 10:22 [facility] Medical History CKD (chronic kidney disease) stage 3, GFR 30-59 ml/min ?N18.30 - Chronic kidney disease, stage 3 unspecified (ICD-10) Shingles (~03/2022) ?B02.9 - Zoster without complications (ICD-10) Vitamin B 12 deficiency (~02/2022) ?E53.8 - Deficiency of other specified B group vitamins (ICD-10) COVID ?U07.1 - COVID-19 (ICD-10) Type 2 diabetes mellitus (2007) ?E11.9 - Type 2 diabetes mellitus without complications (ICD-10) Systolic murmur ?R01.1 - Cardiac murmur, unspecified (ICD-10) Multiple episodes of hypoglycemia ?E16.2 - Hypoglycemia, unspecified (ICD-10) Hypertension (1991) ?I10 - Essential (primary) hypertension (ICD-10) History of chronic cough ?Z87.09 - Personal history of other diseases of the respiratory system (ICD-10) History of benign breast biopsy (1972) ?Z98.890 - Other specified postprocedural states (ICD-10) Gastroesophageal reflux disease (2014) ?K21.9 - Gastro-esophageal reflux disease without esophagitis (ICD-10) Surgical History History of tonsillectomy and adenoidectomy (1946) ?Z90.89 - Acquired absence of other organs (ICD-10) History of hysterectomy for benign disease (2002) ?Z90.710 - Acquired absence of both cervix and uterus (ICD-10) History of colonoscopy (03/02/13) ?Z98.890 - Other specified postprocedural states (ICD-10) History of cataract extraction (2018) ?Z98.49 - Cataract extraction status, unspecified eye (ICD-10) History of arthroscopy of left knee (2001) ?Z98.890 - Other specified postprocedural states (ICD-10) Family History Son Asthma Sister Breast cancer Mother Diabetes Father Myocardial infarction, Onset Age: 68 Social History Narrative: Exercise involving walking. 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 [employer], 4 kids Non-smoker Rarely consumes alcohol Smoking Status: Never smoker Do you use any of these nicotine containing products: None Second hand tobacco smoke exposure: No How often do you have a drink containing alcohol: monthly or less How often do you have six or more drinks on one occasion: Never AUDIT-C Alcohol total score: 1 Non-prescribed substance use: denies use Little interest or pleasure in doing things: not at all Feeling down, depressed, or hopeless: not at all Exam Const: Vital Signs, click to edit/add: Vital Signs - 24 hr 06/21/24 00:20 Temperature 98.0 F Pulse Rate [Right Pulse Oximeter] 75 Respiratory Rate 20 Blood Pressure [Ri ght Upper Arm] 145/78 H Pulse Oximetry 99 Oxygen Delivery Me thod Room Air Documenting provider has reviewed patient's vital signs: yes Common normals: no apparent distress General appearance: cooperative, comfortable and well kempt HENMT: Common normals: normocephalic and external nose normal Head and scalp: normocephalic Face and sinus: normal facial exam and face symmetric Nose: external nose normal and no nasal polyps Mouth: oral and palatal mucosa normal Throat: posterior oropharynx normal Other: Recent bleeding from left Staples with adherent clot, small on left anterior plexus area. No signs of posterior bleed. No active bleeding. Right Staples, nostril and septum are normal. Eye: Common normals: conjunctivae normal General eye: normal appearance of both eyes Conjunctiva: conjunctiva(e) normal Neck & C-Spine: Common normals: no lymphadenopathy General: normal visual inspection Resp: Common normals: normal respiratory effort Effort & inspection: able to speak in complete sentences Psych: Appearance: well kempt Attitude: calm and engaged Mood and affect: euthymic mood Skin: Common normals: no rashes or lesions noted General skin exam: no rashes or lesions noted Course Course ED Course: 79-year-old female with mild nose bleed, appears to have been from left anterior plexus, adherent clot is now present and bleeding has ceased. Patient has been observed in the ED for about 45 minutes with no return of bleeding. Patient is counseled on future management. We discussed [id number]-[id number] nasal ceased and other similar products. She is given a nasal clamp and instructed on how to use it. Instructed on where to clamp the nose for best compression of the anterior plexus. She should continue her aspirin as prescribed. Discussed follow-up with ENT if she has recurrent episodes. Counseled on 30 minutes of clamping and lying down if she has return of symptoms. If failure to improve, present to ED. Further alarm symptoms were reviewed. Patient verbalizes understanding and agreement, discharged home with . Vital Signs Vital signs: Initial Vital Signs Temperature 98.0 F 06/21/24 00:20 Temperature Source Temporal Artery Scan 06/21/24 00:20 Pulse Rate 75 06/21/24 00:20 Respiratory Rate 20 06/21/24 00:20 Blood Pressure 145/78 H 06/21/24 00:20 Blood Pressure Mean 100 06/21/24 00:20 Blood Pressure Position Sitting 06/21/24 00:20 Pulse Oximetry 99 06/21/24 00:20 Oxygen Delivery Method Room Air 06/21/24 00:20 Vital Signs Temperature 98.0 F 06/21/24 00:20 Pulse Rate 75 06/21/24 00:20 Respiratory Rate 20 06/21/24 00:20 Blood Pressure 145/78 H 06/21/24 00:20 Pulse Oximetry 99 06/21/24 00:20 Oxygen Delivery Method Room Air 06/21/24 00:20 Temperature 98.0 F 06/21/24 00:20 Pulse Rate 75 06/21/24 00:20 Respiratory Rate 20 06/21/24 00:20 Blood Pressure 145/78 H 06/21/24 00:20 Pulse Oximetry 99 06/21/24 00:20 Oxygen Delivery Method Room Air 06/21/24 00:20 Discharge Plan Discharge Clinical Impression: Anterior epistaxis Patient Disposition: Home w/ Parent or Adult Condition: Improved Instructions: Nosebleed (ED) Additional Instructions: I am glad that the nosebleed has stopped. Unfortunately, there are many reasons why these can happen and they are likely to happen again. It is important to know what to do if they happen. You were given a clamp here in the ED and shown how to use it. I find that when most people pinch there nose, they pinch far too low. Remember to pinch up high close to the bones and a little further back than you would expect. Pinch or clamp for 30 minutes if bleeding restarts. There is an reiu-unl-duhnzja product called nasal cease. This comes and small convenient portable packets that you can carry with you. A combination of applying that powder into your nose and clamping is very effective at relieving this type of nose bleed. I find it helpful to lay flat with your nose clamped but if this is not possible, leaning forward may be helpful as well. Avoid picking or aggressively wiping your nose. Try to avoid blowing the nose for at least the next 6 hours. If you get recurrent nosebleeds, I recommend making an appointment with our ear nose and throat provider. A simple in office cauterization can often prevent these. If you do have to clamp your nose and the bleeding does not stop after 30 minutes, you should come to an emergency department. Activity Level: No Restrictions Discharge Diet: Regular Prescriptions: No Action aspirin [Adult Aspirin Regimen] 81 mg tablet,delayed release (DR/EC) 81 mg PO QDAY rosuvastatin 10 mg tablet 10 mg PO QDAY Qty: 90 3RF donepezil 10 mg tablet 10 mg PO QDAY cyanocobalamin (vitamin B-12) 1,000 mcg tablet extended release 1,000 mcg PO QDAY Qty: 90 4RF Vitron-C 65 mg iron- 125 mg tablet,delayed release (DR/EC) 1 tab PO QDAY Qty: 90 0RF (DME) lancing device with lancets [Accu-Chek FastClix Lancing Dev] Kit See Rx Instructions .Route Qty: 100 0RF Rx Instructions: Tests once daily (DME) lancets Misc See Rx Instructions .Route Qty: 100 1RF Rx Instructions: Test one time per day (DME) lancets [Accu-Chek Fastclix Lancet Drum] Misc See Rx Instructions .Route Qty: 100 1RF Rx Instructions: As directed losartan 100 mg tablet 100 mg PO QDAY Qty: 90 3RF metformin 500 mg tablet extended release 24 hr 500 mg PO BID Qty: 180 1RF atenolol 50 mg tablet 50 mg PO BID Qty: 180 1RF omeprazole 20 mg capsule,delayed release(DR/EC) 20 mg PO QDAY Qty: 90 1RF hydrochlorothiazide 25 mg tablet 25 mg PO QDAY Qty: 90 1RF levothyroxine 100 mcg tablet 100 mcg PO QDAY Qty: 90 0RF (DME) Accu-Chek Arlette Plus test strp Strip MISCELLANEOUS Qty: 100 0RF Rx Instructions: Patient to test once daily Follow Up/Referrals: Rut Acosta MD [Primary Care Provider] - Stand Alone Forms: MyHealth Info Instructions
--- OUTSIDE RECORDS SUMMARY | 2024-06-21 00:44 | XMS_ITS | Clinical Summary ---
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 Name Role Phone Unavailable Primary Care Provider [...] 1993 DEXA/DXA scan for age 65+ 02/01/2008 RSV vaccine for adults or (1 - 1-dose 75+ series) 2018 BMI (ht and wt on same day) for age 18+ 12/06/2022 12/06/2021, 12/11/2020 Depression screening for age 12+ 12/06/2022 12/07/19, 07/09/2021 Medicare Wellness for age 65+ 12/07/2022, 07/24/2020 (Completed outside of [facility]) Tetanus booster 10/13/2023 10/13/2013 COVID-19 vaccine series ( season) 2024 01/17/2022, 06/28/2021, 12/05/2020, Additional history exists Influenza for age 65+ 05/22/2024 07/13/2021 , 07/03/2021, 06/26/2020, Additional history exists Tdap Completed 10/13/2013 Pneumococcal series for age 65+ Completed 11/13/2015, 11/13/2015, 10/24/2008, Additional history exists Medical Devices Implanted Type Area Sausage Linker Device Identifier Shelf Expiration Date Model / Serial / Lot Mesh Y-Sling Intepro Lg - [id number] Implanted:Qty: 1 on 10/29/2010 at [facility] Vagina [employer] 04/29/2011 [id number] / / [id number] Device Tvt Exact Retropubic Sys Sling - [id number] Implanted:Qty: 1 on 10/29/2010 at [facility] Bilateral: Urethra J And J [employer] Womens H / Uro 06/21/2011 TVTRL# / / [id number] Advance Directives * Full Code (Latest Code Status on File) Date Activated Date Inactivated Comments 10/29/2010 11:47 AM 10/31/2010 2:03 PM
[2024-06-21 00:52] VITALS: RESP 18
== END 2024-06-21 00:53 | disposition home or self-care (01) ==
LOC: ED 06-21 00:42
PROVIDERS: Emergency Provider Family Medicine; PCP Family Medicine
DX: R04.0 Epistaxis (principal)
CPT/HCPCS: 99283

== ENCOUNTER 2024-06-28 08:38 | Outpatient (CLI) | payer MEDICARE, OTHER, SELFPAY ==
--- OUTSIDE RECORDS SUMMARY | 2024-06-28 21:43 | XMS_ITS | Clinical Summary ---
Author Organization [facility] Address [place], [place] [address] Care Team Providers Care Rod Tape Operator Name Role Phone Unavailable Primary Care [...] history exists Medical Devices Implanted Type Area Dip Guider Stoves Device Identifier Shelf Expiration Date Model / Serial / Lot Mesh Y-Sling Intepro Lg - [id number] Implanted:Qty: 1 on 10/29/2010 at [facility] Vagina [employer] 04/29/2011 [id number] / / [id number] Device Tvt Exact Retropubic Sys Sling - [id number] Implanted:Qty: 1 on 10/29/2010 at [facility] Bilateral: Urethra J And J [employer] Womens H / Uro 06/21/2011 TVTRL# / / [id number] Advance Directives * Full Code (Latest Code Status on File) Date Activated Date Inactivated Comments 10/29/2010 11:47 AM 10/31/2010 2:03 PM
== END 2024-06-28 08:39 | disposition home or self-care (01) ==
LOC: NFLDREF 21:41
PROVIDERS: PCP Family Medicine; Referring Provider Family Medicine; Visit Provider Family Medicine
DX: M85.80 Other specified disorders of bone density and structure, unspecified site (principal); E53.8 Deficiency of other specified B group vitamins; I10 Essential (primary) hypertension; E11.9 Type 2 diabetes mellitus without complications; E03.9 Hypothyroidism, unspecified; E78.5 Hyperlipidemia, unspecified; D64.9 Anemia, unspecified; M81.0 Age-related osteoporosis without current pathological fracture
CPT/HCPCS: 80053; 80061; 82043; 82306; 82570; 82607; 82728; 84443

== ENCOUNTER 2024-09-09 13:25 | Outpatient (CLI) | payer MEDICARE, OTHER, SELFPAY | END 2024-09-09 13:26 | disposition home or self-care (01) | PROVIDERS: PCP Family Medicine; Visit Provider Internal Medicine Cardiovascular Disease | DX: R55 Syncope and collapse (principal); I51.7 Cardiomegaly; I35.0 Nonrheumatic aortic (valve) stenosis | CPT/HCPCS: 93306 ==

== ENCOUNTER 2024-11-21 16:11 | Outpatient (RCR) | payer MEDICARE, OTHER, SELFPAY | END 2025-03-21 23:59 | disposition home or self-care (01) | PROVIDERS: PCP Family Medicine; Visit Provider Nurse Practitioner Family | DX: M54.50 Low back pain, unspecified (principal); M48.061 Spinal stenosis, lumbar region without neurogenic claudication; Z51.89 Encounter for other specified aftercare | CPT/HCPCS: 97110; 97161 ==

== ENCOUNTER 2024-11-30 12:41 | Outpatient (CLI) | payer MEDICARE, OTHER, SELFPAY ==
--- NOTE | 2024-11-30 13:00 | CRLHL7_ITS ---
For Patients: As a result of the 21st Century Cures Act, medical imaging exams and procedure reports are released immediately into your electronic medical record. You may view this report before your referring provider. If you have questions, please contact your health care provider. INDICATION: Low back pain. COMPARISON: None. TECHNIQUE: Sagittal T1, T2, and STIR sequences. Axial T1 and T2 weighted sequences. FINDINGS: Lumbar curve convex left. In sagittal plane, degenerative grade 1 anterolisthesis of L4 on L5 measures approximately 6 mm. Otherwise, normal alignment. No fractures. No vertebral body loss of height. No evidence injury. No suspicious osseous lesions. Normal conus terminates at L1. Grade 1 anterolisthesis of L4 on L5 measures approximately 6 mm. Otherwise, normal alignment. No fractures. No vertebral body loss of height. No ligament injury. No suspicious osseous lesions. Normal conus terminates at L1. Marrow edema of the articular processes of the left L4-5 facet joint which may be secondary to stress reaction or inflammation from facet arthritis. T12-L1: No spinal canal or neural foraminal narrowing. L1-2: Advanced disc degeneration. Loss disc height. Modic type 1 endplate changes. Benign bone island L1. Diffuse disc bulge. Mild narrowing of spinal canal. Mild narrowing of bilateral foramina. L2-3: Disc degeneration. Posterior disc bulge. Trace Modic type 1 endplate changes. Mild narrowing of spinal canal. Right subarticular recess narrowing potential impingement of the traversing right L3 nerve root. Mild narrowing of the right neural foramen. No narrowing of the left neural foramen. Mild facet arthropathy. L3-4: Disc generation posted disc bulge. Moderate severe narrowing of spinal canal. Bilateral subarticular recess narrowing potential impingement of the traversing L4 nerve roots. Moderate severe right and mild left neural foraminal narrowing. Potential impingement of the exiting right L3 nerve root. Mild facet arthropathy. L4-5: Grade 1 anterolisthesis. Unroofed posterior disc bulge. Combined facet arthropathy, there is moderate severe narrowing of spinal canal. Bilateral subarticular recess narrowing and impingement of the traversing L5 nerve roots. Oblique orientation bilateral foramina moderate narrowing. Small degenerative cysts about the closely apposed spinous processes. L5-S1: Disc degeneration and posterior disc bulge. No narrowing of spinal canal. No jeanmarie impingement of the traversing S1 nerve roots. Mild right and moderate left neural foraminal narrowing. Degenerative changes of the SI joints. IMPRESSION: 1. Lumbar curve convex to the left. 2. Degenerative grade 1 anterolisthesis of L4 on L5. Otherwise normal alignment. No fractures 3. Grade 1 anterolisthesis of L4 on L5. Otherwise normal alignment. No fractures 4. Marrow edema of the articular processes of the left L4-5 facet joint which may be secondary to stress reaction or inflammation. 5. At L2-3, potential impingement of the traversing right L3 nerve root 6. At L3-4, moderate severe narrowing of the spinal canal and right neural foramina 7. At L4-5, moderate severe narrowing of the spinal canal. Moderate narrowing of the bilateral neural foramina 8. At L5-S1, mild right and moderate left neural foraminal narrowing. Dictated by Kevan Mendoza MD @ 12/01/2024 2:03:22 PM (Electronically Signed)
== END 2024-11-30 12:42 | disposition home or self-care (01) ==
LOC: MRI 12:43
PROVIDERS: PCP Family Medicine; Visit Provider Nurse Practitioner Family
DX: M54.50 Low back pain, unspecified (principal); M51.26 Other intervertebral disc displacement, lumbar region; M51.27 Other intervertebral disc displacement, lumbosacral region
CPT/HCPCS: 72148

== ENCOUNTER 2025-01-20 15:06 | Emergency (ER) | payer MEDICARE, OTHER, SELFPAY ==
--- OUTSIDE RECORDS SUMMARY | 2025-01-20 15:09 | XMS_ITS | Clinical Summary ---
Author Organization [facility] Address [address] , [address] [place] [address] Phone Care Team Providers Care Bundle Packer Name Role Phone Christie Livingston Conditions or Problems Problem Name Problem Code Onset Date Status Entry Date Provider Comment Standard Description Annotate Dementia in other diseases classified elsewhere, moderate, without behavioral disturbance , psychotic disturbance , mood disturbance , and anxiety 30167461 (SNOMED CT) 10/09 Active 10/09 Kirstie Carbajal Dementia Alzheimer's disease, moderate 64760003 (SNOMED CT) 10/09 Active 10/09 Tamiko Kline MD Alzheimer's disease Dementia, moderate 32734090 (SNOMED CT) 10/09 Inactive 10/09 Tamiko Kline MD Dementia Ischemic vascular disease 20354058 (SNOMED CT) 06/09 Active 06/09 Chloe Callaway PA-C Ischemia Abnormal brain MRI 273733968 (SNOMED CT) 06/09 Active 06/09 Chloe Gisel Roperil PA-C Magnetic resonance imaging of brain abnormal Hyperlipide tim 45700433 (SNOMED CT) 05/11 Active 05/11 Cristi Lewis MD Hyperlipidemia Hypertensio n 22407418 (SNOMED CT) 05/11 Active 05/11 Cristi Lewis MD Hypertensive disorder Hx of diabetes mellitus (DM), type 2 278375150 (SNOMED CT) 05/11 Active 05/11 Cristi Lewis MD History of diabetes mellitus type 2 Short term memory loss 730005358 (SNOMED CT) 05/11 Active 05/11 Cristi Lewis MD Poor short-term memory Cognitive changes 654407216 (OMED CT) 05/11 Active 05/11 Cristi Lewis MD Impaired cognition B12 deficiency 554080316 (OMED CT) 05/11 Active 05/11 Cristi Lewis MD Cobalamin deficiency Medications Medication Instructions Start Date Stop Date Generic Name NDC Provider DONEPEZIL HCL 10 MG TABS take 1 tab (10 mg) by mouth at bedtime. 10/11 donepezil [id number] Caitlyn MARTINEZ-C DONEPEZIL HCL 10 MG TABS TAKE 1 TABLET BY MOUTH AT BEDTIME 10/01 donepezil [id number] Jocelin MARTINEZ-C SIMVASTATIN 20 MG TABS 02/03 simvastatin 91846605058 Chloe MARTINEZ-C ROSUVASTATIN CALCIUM 10 MG TABS rosuvastatin 91346286055 Chloe Roperil PA-C DONEPEZIL HCL 5 MG TABS take 1 tab by mouth at bedtime. After 1 month, increase to 2 tab (10 mg) by mouth at bedtime. 06/09 donepezil [id number] Chloe Roperil PA-C DONEPEZIL HCL 10 MG TABS take 1 tab (10 mg) by mouth at bedtime. 10/11 donepezil 43141514859 Chloe Callaway PA-C ACCU-CHEK YUDY PLUS STRP USE STRIP TO CHECK GLUCOSE ONCE DAILY blood sugar diagnostic [id number] Chloe MARTINEZ-C HYDROCHLOROTHIAZIDE 25 MG TABS hydrochlorothiaz i de 16524397858 Chloe Callaway PA-C SIMVASTATIN 20 MG TABS 02/03 simvastatin 97518635060 Chloe Gisel Cherucheril PA-C LEVOTHYROXINE SODIUM 100 MCG TABS levothyroxine 66031721271 Chloe Callaway MICHELLE-C OMEPRAZOLE 20 MG CPDR omeprazole 16765511367 Chloe Callaway MICHELLE-C LOSARTAN POTASSIUM 100 MG TABS losartan 62066368752 Chloe Callaway MICHELLE-C ATENOLOL 50 MG TABS 1 tab BID atenolol 491658188 10 Chloe Callaway JAIROC METFORMIN HCL ER 500 MG [id number] 1 tab BID metformin 55858595530 Chloe Callaway MICHELLEC VITAMIN B-12 1000 MCG TABS 1 tab daily cyanocobalamin (vitamin b-12) 48005908956 Chloe Callaway JAIRO PRESERVISION AREDS CAPS 2 caps daily vitamins a,c,u-nwxm-xdxhtv 57756864778 Chloe Callaway JAIRO REMICADE 100 MG SOLR infusion every other month for RA infliximab 49591178062 Chloe Callaway [facility] SM IRON 325 (65 Fe) MG TABS 1 tab daily ferrous sulfate 52721666248 Chloe Callaway [facility] GNP GLUCOSE GUMMIES 2 GM CHEW as needed glucose 02037572570 Chloe Callaway [facility] DONEPEZIL HCL 5 MG TABS take 1 tab by mouth at bedtime. After 1 month, increase to 2 tab (10 mg) by mouth at bedtime. 06/09 donepezil [id number] Chloe Callaway MICHELLE Medications Administered No information available. Allergies, Adverse Reactions, Alerts Observed no known allergies at Results Date Name Value Unit Range Flag Description Replaced Document: (P) LYME DISEASE AB W/REFL TO BLOT (IGG, IGM), CERULOPLASMIN ... METHYL MALON * nmol/L methylma lonic acid (MMA), serum COPPER SER * ug/mL copper, bl ood [id number] * GE use only - for LinkLogic import when terms are not otherwise specified AMMONIA P * umol/L Ammonia [Mass/volume] in Plasma VITEBETAGAMA * mg/L Vitamin E beta bhaskar tocopherol VITAMIN E * mg/L alpha tocop herol, serum B-12 1515 pg/mL 200-1100 H Cobalamin (Vitamin B12) [Mass/volume] in Serum or Plasma TSH 0.91 u[iU]/mL 0.40-4.50 N Thyrotropi n [Units/volume] in Serum or Plasma FOLATE 13.2 ng/mL N Folate [Mass/volume] in Serum or Plasma HOMOCYSTEINE * umol/L homocyst eine, plasma, quantitative CERULOPLASMI * mg/dL cerulopl asmin, serum LYME DIS AB * Borrelia burgdorferi.VlsE1 +pepC10 Ab [Units/volume] in Serum by Immunoassay Internal Other: Authorizatio n - OBS [email or web address] Yes Authoriza tion: Release of Information - Authorize [facility] - Payment and Healthcare Operations ROIAUTHOTHER Yes Authoriz ation: Release of Information - Authorize Others/Insurance - Payment and Healthcare Operations HIECONSENT Yes Consent To Release information to the Health Information Exchange (HIE) [email or web address] Yes Authorizat ion: Authorization for [facility] to leave messages, voicemail, send text messages, send emails AUTHRELHCARE Yes Authoriz ation: Release/Retrieval of Information to/from Healthcare Facilities, Pharmacy Benefit Payers and Providers AUTHPRIVPRAC Yes Authoriz ation: Notice of privacy practices AUTHBENEFIT Yes Authoriza tion: Assignment of Benefits and Payment Agreement Office Visit: Office Visit f ax MEDS REVIEW Done Documenta tion of current medications (procedure) [id number] Mild Total scor e [MoCA] MMSE SCORE 23 Total scor e [MMSE] Office Visit: fax DEMENTIA2 Assessment of cognition performed and results reviewed. Total score [MMSE] [id number] Moderate Total sco re [MoCA] SLUMSSCORE 11 Total scor e [MMSE] DEMENTIA1 Mild Cognitive Impairment Total score [MMSE] Internal Other: Verbal Autho rization/Emergency Contact - OBS VERBAL_EMER Done Verbal authorization and emergency contact Plan of Care Type Date Detail Appointment 12:10 PM Tamiko Thrasher i, MD, [address], [address], [place], [address], Pending order Follow up Pending order Follow up Pending order Follow up Pending order MRA-Neck W/WO Pending order Patient Instruct ions Pending order Follow up KRANTHI Pending order Follow up Pending order Patient Instruct ions Pending order Follow up KRANTHI Pending order MRA-Head W/O Pending order MRA-Neck W/WO Pending order Lipid Panel with LDL/HDL Ratio - fasting after midnight Pending order Follow up after testing Pending order Instructions for Staff Pending order Obtain outside r ecords Pending order Obtain outside r ecords Pending order MRI-Brain W/O Pending order Dementia - Diet; Exercise and Socialization Handout Pending order Brain Exercises Handout Pending order Follow up with N eurologist or KRANTHI Pending order Folate (Folic Ac id) Serum Pending order Homocysteine Pending order Methylmalonic Ac id Serum (MMA) Pending order Vitamin B12 Pending order Lyme Total Ab w/ Reflex (reflex to Western Blot) Pending order TSH Pending order Ceruloplasmin Pending order Copper Pending order AD-Detect Amyloi d Beta 42/40 Pending order Ammonia Pending order Vitamin E Procedures Code Procedure Name Date Entry Date [facility]ERS [facility] [address] SLUMS CPT-G2211 Complex e/m visit add on 12/30/18 CPT-W2035I MultiHance Gadoliniu m-based MR Contrast - 15 ml vial CPT-83094 MRA Neck W/WO [id number] MRA-Neck W/WO ORDERS Patient Instructions [facility] [address]36-6 MMSE ORDERS Patient Instructions ORDERS Follow up KRANTHI ORDERS Follow up ORDERS Follow up KRANTHI [id number] MRA-Head W/O [id number] MRA-Neck W/WO CPT-35190 MRA Head W/O CPT-38819 MRA Neck W/WO CPT-N1486K ProHance Gadolinium- based MR Contrast - 15 ml vial ORDERS Lipid Panel with LDL /HDL Ratio - fasting after midnight ORDERS Obtain outside records 06/09 ORDERS Obtain outside records 06/09 ORDERS Instructions for Staff 06/09 ORDERS Follow up after testing 2022 [id number] MRI-Brain W/O CPT-49672 MRI Brain W/O ORDERS AD-Detect Amyloid Beta 42/40 ORDERS Ammonia [facility] 12131-0 MMSE ORDERS Follow up with Neurologist or KRANTHI ORDERS Brain Exercises Handout 2022 ORDERS Dementia - Diet; Exe rcise and Socialization Handout ORDERS Folate (Folic Acid) Serum 13/05/21 ORDERS Vitamin B12 ORDERS TSH ORDERS Ceruloplasmin ORDERS Lyme Total Ab w/Reflex (reflex to Western Blot) ORDERS Homocysteine ORDERS Copper ORDERS Methylmalonic Acid Serum (MMA) ORDERS Vitamin E Vital Signs Date Name Value Unit Description BP Diastolic 66 mm[Hg] blood pressu re, diastolic BP Systolic 136 mm[Hg] blood pressur e, systolic Heart Rate 56 /min pulse rate Weight Measured 140 [lb_av] weight E& M Weight Measured 140 [lb_av] weight E& M Immunizations No information available. Advance Directives No information available.
--- OUTSIDE RECORDS SUMMARY | 2025-01-20 15:09 | XMS_ITS | Clinical Summary ---
Author Organization [facility] Address [facility] [place] [address] Care Team Providers Care Acid Remover Name Role Phone Pcp, No Primary Care Provider Unavailabl e Allergies Active Allergy Reactions Criticality Noted Date Comments Sulfa (Sulfonamide Antibiotics) *Unknown 01/20 Medications aspirin 81 mg tablet Take 81 mg by mouth once daily. Daily at bedtime 1 Active MULTIVITS W-FE,OTHER MIN (CENTRUM ORAL) Take by mouth. Senior womans vitamin Active folic acid 800 mcg tablet Take 800 mcg by mouth once daily. Active glipiZIDE extended-release (GLUCOTROL XL) 2.5 mg Extended-Release tabletIndications :Type 2 diabetes mellitus without complication, without long-term current use of insulin (HC) Take 1 Tablet (2.5 mg) by mouth once daily before a meal. 90 Tablet 1 2 Active blood sugar diagnostic (Blood Glucose Test) stripIndications: Type 2 diabetes mellitus without complication, without long-term current use of insulin (HC) Test 1 times per day.E11.9 300 Each 3 2 Active levothyroxine (SYNTHROID) 100 mcg tabletIndications :Hypothyroidism, unspecified type Take 1 Tablet (100 mcg) by mouth before breakfast. 90 Tablet 2 Active metFORMIN (GLUCOPHAGE) 1,000 mg tabletIndications :Type 2 diabetes mellitus without complication, without long-term current use of insulin (HC) TAKE 1 TABLET BY MOUTH TWICE DAILY WITH MEALS 180 Tablet 2 Active atenoloL (TENORMIN) 50 mg tabletIndications :Essential hypertension Take 1 tablet by mouth twice daily 180 Tablet 2 2 Active hydroCHLOROthiazi de (HCTZ) 25 mg tabletIndications :Essential hypertension Take 1 tablet by mouth once daily 90 Tablet 2 2 Active triamcinolone (ARISTOCORT; KENALOG) 0.1 % creamIndications: Tick bite of abdomen, initial encounter Apply topically to affected area(s) 4 times daily. For itching bug bite rash 60 g 02/27/2022 2:00 PM CDT 2 Active hydrOXYzine HCL (ATARAX) 25 mg tabletIndications :Tick bite of abdomen, initial encounter Take 1 Tablet (25 mg) by mouth every 6 hours if needed for Itching. Careful of sedation 25 Tablet 02/27/2022 2:00 PM CDT 2 Active simvastatin (ZOCOR) 20 mg tabletIndications :Hypercholesterol emia TAKE 1 TABLET BY MOUTH AT BEDTIME 30 Tablet 2 Active losartan (COZAAR) 100 mg tabletIndications :Essential hypertension Take 1 tablet by mouth once daily 90 Tablet 3 Active omeprazole (PRILOSEC) 20 mg Delayed-Release capsuleIndication s:Chronic GERD TAKE 1 CAPSULE BY MOUTH ONCE DAILY BEFORE A MEAL 90 Capsule 3 Active Active Problems Problem Noted Date Diagnosed Date Type 2 diabetes mellitus wit h other specified complication, without long-term current use of insulin 12/06/2021 Urinary tract infection without hematuria 2015 GERD (gastroesophageal reflux disease) 3 HTN (hypertension) 09/23/2012 Hypothyroid 09/23/2012 RA (rheumatoid arthritis) 09/23/2012 Resolved Problems Problem Noted Date Diagnosed Date Resolved Date DM (diabetes mellitus) 09/23/201212/06 Immunizations Immunization Administration Dates Next Due COVID-19 vaccine (Moderna 100mcg/0.5mL) PF, MDAddi 06/28/2021 COVID-19 vaccine (M3X Media-Bio NTech 30mcg/0.3mL) PF, MDV 12/05/2020,11/14/2020 Hepatitis A (Adult) 02/21/2019 Influenza RIV4 (Age 18+ Year s) PRESERV FREE 06/26/2020,07/20/2019 Influenza, High-dose Inactivated 08/25/2018,01/2017,09/08/2011 Influenza, High-dose Quadriv alent Inactivated 07/03/2021 Influenza, [...] 0 12/06/2021 Social Connections Answer Date Recorded Do you often feel lonely or isolated from those around you? 0 08/01/2024 Financial Resource Strain Answer Date R ecorded Difficulty of Paying Living Expenses 3 09/01/2024 Difficulty of Paying Living Expenses Not on file 09/01/2024 Food Insecurity Answer Date Recorded Do you worry your food will run out before you are able to buy more? 1 08/01/2024 Transportation Needs Answer Date Record ed Does lack of transportation keep you from medica l appointments? 1 08/01/2024 Does lack of transportation keep you from work, meetings or getting things that you need? 1 08/01/2024 Housing Stability Answer Date Recorded What is your housing situation today? 1 08/01/2024 Utilities Answer Date Recorded Do you have trouble paying f or utilities (for example, heat, electricity, water, phone)? 1 08/01/2024 Comments No Sex and Gender Information Value Date Recorded Sex Assigned at Not on file Legal Sex Female 7:32 AM [employer] Gender Identity Not on file Sexual Orientation Not on file Obstetrics History Last Filed Vital Signs Vital Sign Reading Time Taken Comments Blood Pressure 114/56 08/01/2024 10:35 AM [employer]IAN BLIND WORKER Pulse 58 08/01/2024 10:35 AM [employer]IAN BLIND WORKER Temperature 36.1 C (97 F) 08/01/2024 10:35 AM [employer]IAN BLIND WORKER Respiratory Rate 16 08/01/2024 10:35 AM [employer]IAN BLIND WORKER Oxygen Saturation 98% 08/01/2024 10:35 AM [employer]IAN BLIND WORKER Inhaled Oxygen Concentration - - Weight 65.3 [...] age 65+ 12/07/2022, 07/24/2020 [facility] Tetanus booster 10/13/2023 10/13/2013 COVID-19 vaccine series ( season) 2024 06/09/2024, 01/07/2024, 07/01/2023, Additional history exists Influenza Vaccine (Season Ended) 2025 07/13/2021, 06/26/2020, 07/20/2019, Additional history exists Tdap Completed 10/13/2013 Pneumococcal series for age 50+ Completed 11/13/2015, 11/13/2015, 10/24/2008, Additional history exists Medical Devices Implanted Type Area Nursing Educator Device Identifier Shelf Expiration Date Model / Serial / Lot Mesh Y-Sling Intepro Lg - [id number] Implanted:Qty: 1 on 10/29/2010 at [facility] [employer] 04/29/2011 [id number] / / [id number] Device Tvt Exact Retropubic Zaire Sanchez - [id number] Implanted:Qty: 1 on 10/29/2010 at [facility] Bilateral: Urethra J And J [employer] Womens H / Uro 06/21/2011 TVTRL# / / [id number] [place] [address] MEDICARE PART B HB ONLY MEDICARE PART A HB ONLY MEDICA SELECT SOLUTION MEDICARE PB ONLY MEDICARE PROVIDER BASED [employer] MEDICARE PROVIDER BASED Advance Directives * Full Code (Latest Code Status on File) Date Activated Date Inactivated Comments 10/29/2010 11:47 AM 10/31/2010 2:03 PM Care Teams Acid Remover Relationship Specialty Start Date End Date Pcp, No . PCP - General 08/01/24
[2025-01-20 15:25] VITALS: BP 135/67; PULSE 57; RESP 16; TEMP 36.6; O2SAT 98; BMI 22.3
--- NOTE | 2025-01-20 15:44 | ED.EAR ---
HPI - Ear Problem General Chief complaint: Ear/Nose/Throat Problem Stated complaint: possible infection in right ear Time Seen by Provider: 01/20/25 15:31 History of Present Illness HPI Narrative: Patient is 79-year-old woman comes in today with pain in her right ear. She has had no fevers no chills no night sweats. The symptoms have been present for last 2 days. She has no other HEENT symptoms. Patient is otherwise in reasonable health. She has had no difficulties with recurrent ear infections in the past. Related Data Home Medications ?Medication ?Instructions ?Recorded ?Confirmed aspirin 81 mg tablet,delayed 81 mg PO QDAY 01/07/24 09/01/24 release (Adult Aspirin Regimen) donepezil 10 mg tablet 10 mg PO QDAY 01/07/24 09/01/24 Previous Rx's ?Medication ?Instructions ?Recorded lancing device with lancets kit #100 ea 04/18/22 (Accu-Chek FastClix Lancing Device kit) lancets #100 ea 10/13/22 lancets (Accu-Chek Fastclix Lancet #100 ea 10/16/22 Drum) cyanocobalamin (vitamin B-12) 1,000 mcg PO .3 times weekly #90 07/05/24 1,000 mcg tablet,extended release tabs omeprazole 20 mg capsule,delayed 20 mg PO .every other day #90 caps 07/05/24 release atenolol 50 mg tablet 50 mg PO QDAY #90 tabs 08/03/24 iron,carbonyl 65 mg-vitamin C 125 1 tab PO QDAY #90 tabs 08/22/24 mg tablet,delayed release (Vitron-C) levothyroxine 100 mcg tablet 100 mcg PO QDAY #90 tabs 09/22/24 losartan 100 mg tablet 100 mg PO QDAY #90 tabs 10/04/24 rosuvastatin 10 mg tablet 10 mg PO QDAY #90 tabs 10/04/24 metformin 500 mg tablet,extended 500 mg PO BID #180 tabs 11/01/24 release 24 hr blood sugar diagnostic (Accu-Chek #100 ea 11/25/24 Arlette Plus test strips) Allergies Allergy/AdvReac Type Severity Reaction Status Date / Time Sulfa (Sulfonamide Allergy Unknown Unknown Verified 01/20/25 15:25 Antibiotics) Review of Systems Status of ROS: Reports: 10 or more systems reviewed and unremarkable except as noted in History and below [facility] Medical History Health care directive on file ?Z78.9 - Other specified health status (ICD-10) Memory problem (02/06/23) ?R41.3 - Other amnesia (ICD-10) CKD (chronic kidney disease) stage 3, GFR 30-59 ml/min ?N18.30 - Chronic kidney disease, stage 3 unspecified (ICD-10) Shingles (~03/2022) ?B02.9 - Zoster without complications (ICD-10) Vitamin B 12 deficiency (~02/2022) ?E53.8 - Deficiency of other specified B group vitamins (ICD-10) COVID ?U07.1 - COVID-19 (ICD-10) Type 2 diabetes mellitus (2007) ?E11.9 - Type 2 diabetes mellitus without complications (ICD-10) Systolic murmur (~2021) ?R01.1 - Cardiac murmur, unspecified (ICD-10) Multiple episodes of hypoglycemia ?E16.2 - Hypoglycemia, unspecified (ICD-10) Hypertension (1991) ?I10 - Essential (primary) hypertension (ICD-10) History of chronic cough ?Z87.09 - Personal history of other diseases of the respiratory system (ICD-10) History of benign breast biopsy (1972) ?Z98.890 - Other specified postprocedural states (ICD-10) Gastroesophageal reflux disease (2014) ?K21.9 - Gastro-esophageal reflux disease without esophagitis (ICD-10) Surgical History History of tonsillectomy and adenoidectomy (1946) ?Z90.89 - Acquired absence of other organs (ICD-10) History of hysterectomy for benign disease (2002) ?Z90.710 - Acquired absence of both cervix and uterus (ICD-10) History of colonoscopy (03/02/13) ?Z98.890 - Other specified postprocedural states (ICD-10) History of cataract extraction (2018) ?Z98.49 - Cataract extraction status, unspecified eye (ICD-10) History of arthroscopy of left knee (2001) ?Z98.890 - Other specified postprocedural states (ICD-10) Family History Son Asthma Sister Breast cancer Mother Diabetes Father Myocardial infarction, Onset Age: 68 Social History Narrative: Exercise walking 45 minutes 4 days a week , 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 EYES: No scleral icterus. ENT: Minor dullness and erythema noted the right tympanic membrane. THYROID: no thyroid nodules or thyromegaly. LYMPH: No supraclavicular or cervical lymphadenopathy. SKIN: Visible skin seen during exam normal or with benign process only. EXT: No dependent lower extremity pedal edema. HEART: Regular rate and rhythm with no murmurs, rubs, or gallops. LUNGS: Clear to auscultation bilaterally with no crackles or wheezes. ABD: Soft, non tender, non distended. PSYCH: Good eye contact, speech is not pressured. Const: Vital Signs, click to edit/add: Vital Signs - 24 hr 01/20/25 15:25 Temperature 97.8 F Pulse Rate [Pulse Oximeter] 57 L Respiratory Rate 16 Blood Pressure [Ri ght Upper Arm] 135/67 Pulse Oximetry 98 Oxygen Delivery Me thod Room Air Course Course ED Course: Patient seen and examined. She is otitis media on the right we will treat her with amoxicillin Tylenol Motrin rest and fluids. Vital Signs Vital signs: Initial Vital Signs Temperature 97.8 F 01/20/25 15:25 Temperature Source Temporal Artery Scan 01/20/25 15:25 Pulse Rate 57 L 01/20/25 15:25 Respiratory Rate 16 01/20/25 15:25 Blood Pressure 135/67 01/20/25 15:25 Blood Pressure Mean 89 01/20/25 15:25 Pulse Oximetry 98 01/20/25 15:25 Oxygen Delivery Method Room Air 01/20/25 15:25 Vital Signs Temperature 97.8 F 01/20/25 15:25 Pulse Rate 57 L 01/20/25 15:25 Respiratory Rate 16 01/20/25 15:25 Blood Pressure 135/67 01/20/25 15:25 Pulse Oximetry 98 01/20/25 15:25 Oxygen Delivery Method Room Air 01/20/25 15:25 Temperature 97.8 F 01/20/25 15:25 Pulse Rate 57 L 01/20/25 15:25 Respiratory Rate 16 01/20/25 15:25 Blood Pressure 135/67 01/20/25 15:25 Pulse Oximetry 98 01/20/25 15:25 Oxygen Delivery Method Room Air 01/20/25 15:25 Discharge Plan Discharge Clinical Impression: Otitis media Patient Disposition: Home, Self-Care Condition: Stable Instructions: Ear Infection (ED) Additional Instructions: Amoxicillin Tylenol Motrin Rest Fluids Activity Level: No Restrictions Discharge Diet: Regular Prescriptions: No Action aspirin [Adult Aspirin Regimen] 81 mg tablet,delayed release (DR/EC) 81 mg PO QDAY donepezil 10 mg tablet 10 mg PO QDAY omeprazole 20 mg capsule,delayed release(DR/EC) 20 mg PO .every other day Qty: 90 1RF cyanocobalamin (vitamin B-12) 1,000 mcg tablet extended release 1,000 mcg PO .3 times weekly Qty: 90 1RF atenolol 50 mg tablet 50 mg PO QDAY Qty: 90 3RF (DME) lancing device with lancets [Accu-Chek FastClix Lancing Dev] Kit See Rx Instructions .Route Qty: 100 0RF Rx Instructions: Tests once daily (DME) lancets Misc See Rx Instructions .Route Qty: 100 1RF Rx Instructions: Test one time per day (DME) lancets [Accu-Chek Fastclix Lancet Drum] Misc See Rx Instructions .Route Qty: 100 1RF Rx Instructions: As directed Vitron-C 65 mg iron- 125 mg tablet,delayed release (DR/EC) 1 tab PO QDAY Qty: 90 0RF levothyroxine 100 mcg tablet 100 mcg PO QDAY Qty: 90 2RF rosuvastatin 10 mg tablet 10 mg PO QDAY Qty: 90 2RF losartan 100 mg tablet 100 mg PO QDAY Qty: 90 2RF metformin 500 mg tablet extended release 24 hr 500 mg PO BID Qty: 180 0RF (DME) Accu-Chek Arlette Plus test strp Strip MISCELLANEOUS Qty: 100 0RF Rx Instructions: Patient to test once daily Follow Up/Referrals: Rut Acosta MD [Primary Care Provider] - Stand Alone Forms: [employer] Info Instructions
--- OUTSIDE RECORDS SUMMARY | 2025-01-20 15:47 | XMS_ITS | Clinical Summary ---
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 Gender Identity Not on file Sexual Orientation Not on file Obstetrics History Last Filed Vital Signs Vital Sign Reading Time Taken Comments Blood Pressure 114/56 08/01/2024 10:35 AM BLUEPRINTING MACHINE OPERATOR Pulse 58 08/01/2024 10:35 AM BLUEPRINTING MACHINE OPERATOR Temperature 36.1 C (97 F) 08/01/2024 10:35 AM BLUEPRINTING MACHINE OPERATOR Respiratory Rate 16 08/01/2024 10:35 AM BLUEPRINTING MACHINE OPERATOR Oxygen Saturation 98% 08/01/2024 10:35 AM BLUEPRINTING MACHINE OPERATOR Inhaled Oxygen Concentration - - Weight 65.3 [...] age 65+ 12/07/2022, 07/24/2020 [facility] Tetanus booster 10/13/2023 10/13/2013 COVID-19 vaccine series ( season) 2024 06/09/2024, 01/07/2024, 07/01/2023, Additional history exists Influenza Vaccine (Season Ended) 2025 07/13/2021, 06/26/2020, 07/20/2019, Additional history exists Tdap Completed 10/13/2013 Pneumococcal series for age 50+ Completed 11/13/2015, 11/13/2015, 10/24/2008, Additional history exists Medical Devices Implanted Type Area Floorman Device Identifier Shelf Expiration Date Model / Serial / Lot Mesh Y-Sling Intepro Lg - [id number] Implanted:Qty: 1 on 10/29/2010 at [facility] [employer] 04/29/2011 [id number] / / [id number] Device Tvt Exact Retropubic Zaire Sanchez - [id number] Implanted:Qty: 1 on 10/29/2010 at [facility] Bilateral: Urethra [employer] / [employer] 06/21/2011 [id number] / / [id number] [place] [address] MEDICARE PART B HB ONLY MEDICARE PART A HB ONLY MEDICA SELECT SOLUTION MEDICARE PB ONLY MEDICARE PROVIDER BASED Jalbum MEDICARE PROVIDER BASED Advance Directives * Full Code (Latest Code Status on File) Date Activated Date Inactivated Comments 10/29/2010 11:47 AM 10/31/2010 2:03 PM Care Teams Plant Ecologist Relationship Specialty Start Date End Date Pcp, No . PCP - General 08/01/24
--- OUTSIDE RECORDS SUMMARY | 2025-01-20 15:47 | XMS_ITS | Clinical Summary ---
Author Organization [facility] Address [address] [facility] , [address] [place] [address] Phone Care Team Providers Care Chief Inspector Name Role Phone Christie Livingston Conditions or Problems Problem Name Problem Code Onset Date Status Entry Date Provider Comment Standard Description Annotate Dementia in other diseases classified elsewhere, moderate, without behavioral disturbance , psychotic disturbance , mood disturbance , and anxiety 80073444 (SNOMED CT) 10/09 Active 10/09 Kirstie Carbajal Dementia Alzheimer's disease, moderate 34213657 (SNOMED CT) 10/09 Active 10/09 Tamiko Kline MD Alzheimer's disease Dementia, moderate 97393099 (SNOMED CT) 10/09 Inactive 10/09 Tamiko Kline MD Dementia Ischemic vascular disease 62393641 (SNOMED CT) 06/09 Active 06/09 Chloe Callaway PA-C Ischemia Abnormal brain MRI 701636001 (SNOMED CT) 06/09 Active 06/09 Chloe Gisel Roperil PA-C Magnetic resonance imaging of brain abnormal Hyperlipide tim 63868656 (SNOMED CT) 05/11 Active 05/11 Cristi Lewis MD Hyperlipidemia Hypertensio n 50268329 (SNOMED CT) 05/11 Active 05/11 Cristi Lewis MD Hypertensive disorder Hx of diabetes mellitus (DM), type 2 277668349 (SNOMED CT) 05/11 Active 05/11 Cristi Lewis MD History of diabetes mellitus type 2 Short term memory loss 046674641 (SNOMED CT) 05/11 Active 05/11 Cristi Lewis MD Poor short-term memory Cognitive changes 472048912 (OMED CT) 05/11 Active 05/11 Cristi Lewis MD Impaired cognition B12 deficiency 633933834 (OMED CT) 05/11 Active 05/11 Cristi Lewis MD Cobalamin deficiency Medications Medication Instructions Start Date Stop Date Generic Name NDC Provider DONEPEZIL HCL 10 MG TABS take 1 tab (10 mg) by mouth at bedtime. 10/11 donepezil [id number] Caitlyn MARTINEZ-C DONEPEZIL HCL 10 MG TABS TAKE 1 TABLET BY MOUTH AT BEDTIME 10/01 donepezil 12817340912 Jocelin MARTINEZ-C SIMVASTATIN 20 MG TABS 02/03 simvastatin 50905399055 Chloe MARTINEZ-C ROSUVASTATIN CALCIUM 10 MG TABS rosuvastatin 75325891686 Chloe Roperil PA-C DONEPEZIL HCL 5 MG TABS take 1 tab by mouth at bedtime. After 1 month, increase to 2 tab (10 mg) by mouth at bedtime. 06/09 donepezil 71653276649 Chloe Roperil PA-C DONEPEZIL HCL 10 MG TABS take 1 tab (10 mg) by mouth at bedtime. 10/11 donepezil [id number] Chloe Callaway PA-C ACCU-CHEK YUDY PLUS STRP USE STRIP TO CHECK GLUCOSE ONCE DAILY blood sugar diagnostic 64020157099 Chloe MARTINEZ-C HYDROCHLOROTHIAZIDE 25 MG TABS hydrochlorothiaz i de 05542527838 Chloe Callaway PA-C SIMVASTATIN 20 MG TABS 02/03 simvastatin 22911409025 Chloe Gisel Cherucheril PA-C LEVOTHYROXINE SODIUM 100 MCG TABS levothyroxine 86353224745 Chloe Callaway MICHELLE-C OMEPRAZOLE 20 MG CPDR omeprazole 84354616956 Chloe Callaway MICHELLE-C LOSARTAN POTASSIUM 100 MG TABS losartan 12825895632 Chloe Callaway MICHELLE-C ATENOLOL 50 MG TABS 1 tab BID atenolol 560781355 10 Chloe Callaway JAIROC METFORMIN HCL ER 500 MG [id number] 1 tab BID metformin 16082303194 Chloe Callaway MICHELLEC VITAMIN B-12 1000 MCG TABS 1 tab daily cyanocobalamin (vitamin b-12) 68322227784 Chloe Callaway JAIRO PRESERVISION AREDS CAPS 2 caps daily vitamins a,c,k-mebm-qhbxxi 61834938613 Chloe Callaway JAIRO REMICADE 100 MG SOLR infusion every other month for RA infliximab 90610021302 Chloe Callaway [facility] SM IRON 325 (65 Fe) MG TABS 1 tab daily ferrous sulfate 54309360232 Chloe Callaway [facility] GNP GLUCOSE GUMMIES 2 GM CHEW as needed glucose 92225119650 Chloe Callaway [facility] DONEPEZIL HCL 5 MG TABS take 1 tab by mouth at bedtime. After 1 month, increase to 2 tab (10 mg) by mouth at bedtime. 06/09 donepezil [id number] Chloe Callaway MICHELLE Medications Administered No information [...] Done Documenta tion of current medications (procedure) [id number] Mild Total scor e [MoCA] MMSE SCORE 23 Total scor e [MMSE] Office Visit: fax DEMENTIA2 Assessment of cognition performed and results reviewed. Total score [MMSE] [id number] Moderate Total sco re [MoCA] SLUMSSCORE 11 Total scor e [MMSE] DEMENTIA1 Mild Cognitive Impairment Total score [MMSE] Internal Other: Verbal Autho rization/Emergency Contact - OBS VERBAL_EMER Done Verbal authorization and emergency contact Plan of Care Type Date Detail Appointment 12:10 PM Tamiko Thrasher i, MD, [address] [facility], [address], [place], [address], Pending order Follow up Pending order Follow [...] Name Date Entry Date ORDERS Follow up [facility] [address]678-1 SLUMS CPT-G2211 Complex e/m visit add on 12/30/18 CPT-U3394U MultiHance Gadoliniu m-based MR Contrast - 15 ml vial CPT-05799 MRA Neck W/WO [id number] MRA-Neck W/WO ORDERS Patient Instructions [facility] 14833-4 MMSE ORDERS Patient Instructions ORDERS Follow up KRANTHI ORDERS Follow up ORDERS Follow up KRANTHI [id number] MRA-Head W/O [id number] MRA-Neck W/WO CPT-43065 MRA Head W/O CPT-15053 MRA Neck W/WO CPT-E3304E ProHance Gadolinium- based MR Contrast - 15 ml vial ORDERS Lipid Panel with LDL /HDL Ratio - fasting after midnight ORDERS Obtain outside records 06/09 ORDERS Obtain outside records 06/09 ORDERS Instructions for Staff 06/09 ORDERS Follow up after testing 2022 [id number] MRI-Brain W/O CPT-62417 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
== END 2025-01-20 16:12 | disposition home or self-care (01) ==
PROVIDERS: Emergency Provider Internal Medicine; PCP Family Medicine
DX: H66.91 Otitis media, unspecified, right ear (principal)
CPT/HCPCS: 99283

== ENCOUNTER 2025-01-30 07:00 | Outpatient (CLI) | payer MEDICARE, OTHER, SELFPAY | END 2025-01-30 07:01 | disposition home or self-care (01) | LOC: NFLDREF 02-04 19:27 | PROVIDERS: PCP Family Medicine; Referring Provider Family Medicine; Visit Provider Family Medicine | DX: E11.22 Type 2 diabetes mellitus with diabetic chronic kidney disease (principal); I12.9 Hypertensive chronic kidney disease with stage 1 through stage 4 chronic kidney disease, or unspecified chronic kidney disease; N18.31 Chronic kidney disease, stage 3a | CPT/HCPCS: 82043; 82570 ==

== ENCOUNTER 2025-02-01 13:55 | Outpatient (CLI) | payer MEDICARE, OTHER, SELFPAY | END 2025-02-01 13:56 | disposition home or self-care (01) | PROVIDERS: PCP Family Medicine; Visit Provider Family Medicine | DX: I12.9 Hypertensive chronic kidney disease with stage 1 through stage 4 chronic kidney disease, or unspecified chronic kidney disease (principal); N18.31 Chronic kidney disease, stage 3a; R63.4 Abnormal weight loss | CPT/HCPCS: 80053 ==

== ENCOUNTER 2025-02-02 06:55 | Outpatient (CLI) | payer MEDICARE, OTHER, SELFPAY | END 2025-02-02 06:56 | disposition home or self-care (01) | LOC: AMB 02-03 09:03 | PROVIDERS: PCP Family Medicine; Visit Provider Family Medicine | DX: R53.1 Weakness (principal) | CPT/HCPCS: A0425; A0427 ==

== ENCOUNTER 2025-02-02 07:39 | Observation (INO) | payer MEDICARE, OTHER, SELFPAY ==
--- OUTSIDE RECORDS SUMMARY | 2025-02-02 07:33 | XMS_ITS | Clinical Summary ---
Author Organization [facility] Address [address] , [address] [place] [address] Phone Care Team Providers Care Art Gilder Name Role Phone Braxton Torres Conditions or Problems Problem Name Problem Code Onset Date Status Entry Date Provider Comment Standard Description Annotate Difficulty in walking 328637623 (SNOMED CT) 01/24 Active 01/24 Tamiko Kline MD Walking disability Dementia in other diseases classified elsewhere, moderate, without behavioral disturbance , psychotic disturbance , mood disturbance , and anxiety 97467130 (SNOMED CT) 10/09 Active 10/09 Kirstie Carbajal Dementia Alzheimer's disease, moderate 31876006 (SNOMED CT) 10/09 Active 10/09 Tamiko Kline MD Alzheimer's disease Dementia, moderate 65319461 (SNOMED CT) 10/09 Inactive 10/09 Tamiko Kline MD Dementia Ischemic vascular disease 67620630 (SNOMED CT) 06/09 Active 06/09 Chloe Igsel Cherucheril PA-C Ischemia Abnormal brain MRI 696580984 (SNOMED CT) 06/09 Active 06/09 Chloe Gisel Cherucheril PA-C Magnetic resonance imaging of brain abnormal Hyperlipide tim 28390044 (SNOMED CT) 05/11 Active 05/11 Cristi Lewis MD Hyperlipidemia Hypertensio n 50925650 (SNOMED CT) 05/11 Active 05/11 Cristi Lewis MD Hypertensive disorder Hx of diabetes mellitus (DM), type 2 995783950 (SNOMED CT) 05/11 Active 05/11 Cristi Lewis MD History of diabetes mellitus type 2 Short term memory loss 867094580 ([facility] CT) 05/11 Active 05/11 Cristi Lewis MD Poor short-term memory Cognitive changes 717507219 ([facility] CT) 05/11 Active 05/11 Cristi Lewis MD Impaired cognition B12 deficiency 756568380 ([facility] CT) 05/11 Active 05/11 Cristi Lewis MD Cobalamin deficiency Medications Medication Instructions Start Date Stop Date Generic Name NDC Provider ACCU-CHEK YUDY PLUS STRP USE STRIP TO CHECK GLUCOSE ONCE DAILY 01/31 blood sugar diagnostic 55712830521 Tamiko Kline MD YUMVS GLUCOSE GUMMIES 2 GM CHEW as needed 01/31 glucose 63685240490 Tamiko Kline MD SM IRON 325 (65 Fe) MG TABS 1 tab daily 01/31 ferrous sulfate 33822573126 Tamiko Kline MD REMICADE 100 MG SOLR infusion every other month for RA 01/31 infliximab 34704041104 Tamiko Kline MD PRESERVISION AREDS CAPS 2 caps daily 01/31 vitamins a,c,n-bzqr-hlnnhf 66913329303 Tamiko Kline MD aspirin 81 mg capsule aspirin Tamiko leeC vitron-C Tamiko Kline MD DONEPEZIL HCL 10 MG TABS take 1 tab (10 mg) by mouth at bedtime. 10/11 donepezil 83541702492 Caitlyn March PA-C DONEPEZIL HCL 10 MG TABS TAKE 1 TABLET BY MOUTH AT BEDTIME 10/01 donepezil 80242484022 Tamiko Kline MD SIMVASTATIN 20 MG TABS 02/03 simvastatin 27095660204 Chloe Callaway PA-C ROSUVASTATIN CALCIUM 10 MG TABS rosuvastatin 75415639561 Chloe Callaway PA-C DONEPEZIL HCL 5 MG TABS take 1 tab by mouth at bedtime. After 1 month, increase to 2 tab (10 mg) by mouth at bedtime. 06/09 donepezil 58364495666 Chloe Giselmarlon Callaway PA-C DONEPEZIL HCL 10 MG TABS take 1 tab (10 mg) by mouth at bedtime. 10/11 donepezil 13941400213 Chloe Callaway PA-C ACCU-CHEK YUDY PLUS STRP USE STRIP TO CHECK GLUCOSE ONCE DAILY 01/31 blood sugar diagnostic 94004225798 Chloe Callaway PA-C HYDROCHLOROTHIAZIDE 25 MG TABS hydrochlorothiaz i de 39698361240 Chloe Callaway PA-C SIMVASTATIN 20 MG TABS 02/03 simvastatin 41308673484 Chloe Callaway PA-C LEVOTHYROXINE SODIUM 100 MCG TABS levothyroxine 04135630650 Chloe Callaway PA-C OMEPRAZOLE 20 MG CPDR omeprazole 32951241494 Chloe Callaway PA-C LOSARTAN POTASSIUM 100 MG TABS losartan 82738891551 Chloe Callaway PA-C ATENOLOL 50 MG TABS 1 tab BID atenolol 949040091 10 Chleo Callaway PA-C METFORMIN HCL ER 500 MG [id number] 1 tab BID metformin 30912593453 Chloe Callaway PA-C VITAMIN B-12 1000 MCG TABS 1 tab daily cyanocobalamin (vitamin b-12) 27500192077 Chloe Callaway PA-C PRESERVISION AREDS CAPS 2 caps daily 01/31 vitamins a,c,s-bdgr-gmqhhs 66678959168 Chloe Callaway PA-C REMICADE 100 MG SOLR infusion every other month for RA 01/31 infliximab 13486810432 Chloe Callaway PA-C SM IRON 325 (65 Fe) MG TABS 1 tab daily 01/31 ferrous sulfate 73233010857 Chloe Callaway [facility] GNP GLUCOSE GUMMIES 2 GM CHEW as needed 01/31 glucose 36698986518 Chloe Gisel Callaway [facility] DONEPEZIL HCL 5 MG TABS take 1 tab by mouth at bedtime. After 1 month, increase to 2 tab (10 mg) by mouth at bedtime. 06/09 donepezil 13013329902 Chloe Callaway [facility] Medications Administered No information available. Allergies, Adverse [...] Done Documenta tion of current medications (procedure) [id number] Mild Total scor e [MoCA] MMSE SCORE 23 Total scor e [MMSE] Office Visit: fax DEMENTIA2 Assessment of cognition performed and results reviewed. Total score [MMSE] [id number] Moderate Total sco re [MoCA] SLUMSSCORE 11 Total scor e [MMSE] DEMENTIA1 Mild Cognitive Impairment Total score [MMSE] Internal Other: Verbal Autho rization/Emergency Contact - OBS VERBAL_EMER Done Verbal authorization and emergency contact Plan of Care Type Date Detail Appointment 10:10 AM Tamiko Thrasher i, MD, [address], [address], [place], [address], Pending order Follow up Pending order Follow [...] Name Date Entry Date ORDERS Follow up CPT-G2211 Complex e/m visit add on 202 01/23/06 ORDERS Follow up [place] 509[address]-5 SLUMS CPT-G2211 Complex e/m visit add on 202 12/30/18 CPT-H7215X MultiHance Gadoliniu m-based MR Contrast - 15 ml vial CPT-30888 MRA Neck W/WO [id number] MRA-Neck W/WO ORDERS Patient Instructions LOINC 23255-7 MMSE ORDERS Patient Instructions ORDERS Follow up KRANTHI ORDERS Follow up ORDERS Follow up KRANTHI [id number] MRA-Head W/O [id number] MRA-Neck W/WO CPT-11623 MRA Head W/O CPT-73590 MRA Neck W/WO CPT-G6700N ProHance Gadolinium- based MR Contrast - 15 ml vial ORDERS Lipid Panel with LDL /HDL Ratio - fasting after midnight ORDERS Obtain outside records 06/09 ORDERS Obtain outside records 06/09 ORDERS Instructions for Staff 06/09 ORDERS Follow up after testing 2022 [id number] MRI-Brain W/O CPT-66955 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
--- OUTSIDE RECORDS SUMMARY | 2025-02-02 07:33 | XMS_ITS ---
Author Organization [facility] Address [address] [place] [address] , [address] [place] [address] Phone Care Team Providers Care Slat Basket Top Maker Name Role Phone Tamiko Kline MD [phone] Conditions or Problems Problem Name Problem Code Onset Date Status Entry Date Provider Comment Standard Description Annotate Difficulty in walking [id number] (SNOMED CT) Active Tamiko Kline MD Walking disability Medications No information available. Medications Administered No information available. Allergies, Adverse Reactions, Alerts No information available. Results No information available. Plan of Care Type Date Detail Appointment 10:10 AM Tamiko Thrasher i, MD, [address], [address], [place], [address], Pending order Follow up Pending order Follow up Procedures Code Procedure Name Date Entry Date CPT-G2211 Complex e/m visit add on 202 01/23/06 Vital Signs No information available. Immunizations No information available. Advance Directives No information available.
--- OUTSIDE RECORDS SUMMARY | 2025-02-02 07:33 | XMS_ITS | Clinical Summary ---
Author Organization [facility] Address [facility] [place] [address] Care Team Providers Care Machine Tack Puller Name Role Phone Pcp, No Primary Care [...] Date Resolved Date DM (diabetes mellitus) 09/23/201212/06 Encounters Date Type Department Care Team Description 01/25/2025 Telephone Courage [facility] [address] [facility] [address] [place] [address] Unknown, Doctor Questions (Medication List) from Last 3 Months Immunizations Immunization Administration Dates Next Due COVID-19 vaccine (Moderna 100mcg/0.5mL) RAFIA ESPINOZA 06/28/2021 COVID-19 vaccine (Alm[employer]iva SantéBio NTech 30mcg/0.3mL) PF, MDV 12/05/2020,11/14/2020 Hepatitis A (Adult) 02/21/2019 Influenza RIV4 (Age 18+ Year s) PRESERV FREE 06/26/2020,07/20/2019 Influenza, High-dose Inactivated 08/25/2018,1001/2017,09/08/2011 Influenza, High-dose Quadriv alent Inactivated 07/03/2021 Influenza, [...] on file Legal Sex Female 7:32 AM SKIVER BOX TOE Gender Identity Not on file Sexual Orientation Not on file Obstetrics History Last Filed Vital Signs Vital Sign Reading Time Taken Comments Blood Pressure 114/56 08/01/2024 10:35 AM SKIVER BOX TOE Pulse 58 08/01/2024 10:35 AM SKIVER BOX TOE Temperature 36.1 C (97 F) 08/01/2024 10:35 AM SKIVER BOX TOE Respiratory Rate 16 08/01/2024 10:35 AM SKIVER BOX TOE Oxygen Saturation 98% 08/01/2024 10:35 AM SKIVER BOX TOE Inhaled Oxygen Concentration - - Weight 65.3 kg (144 lb) 12/06/2021 9:20 AM CDT Height 150.5 cm (4' 11.25) 12/06/2021 9:20 AM C DT Body Mass Index 28.84 12/06/2021 9:20 AM CDT Plan of Treatment Health Maintenance Due Date Last Done Comments Depression screening for age 12+ 1955 Zoster (shingles) series for age 50+ (1 of 2) 1993 DEXA/DXA scan for age 65+ 02/01/2008 RSV vaccine for adults or (1 - 1-dose 75+ series) 2018 BMI (ht and wt on same day) for age 18+ 12/06/2022 12/06/2021, 12/11/2020 Medicare Wellness for age 65+ 12/07/2022, 07/24/2020 (Completed outside of [facility]) Tetanus booster 10/13/2023 10/13/2013 COVID-19 vaccine series ( season) 2024 06/09/2024, 01/07/2024, 07/01/2023, Additional history exists Influenza Vaccine (Season Ended) 2025 07/13/2021, 06/26/2020, 07/20/2019, Additional history exists Tdap Completed 10/13/2013 Pneumococcal series for age 50+ Completed 11/13/2015, 11/13/2015, 10/24/2008, Additional history exists Medical Devices Implanted Type Area Planning Specialist Device Identifier Shelf Expiration Date Model / Serial / Lot Mesh Y-Sling Intepro Lg - [id number] Implanted:Qty: 1 on 10/29/2010 at [facility] Vagina [employer] 04/29/2011 [id number] / / [id number] Device Tvt Exact Retropubic Sys Sling - [id number] Implanted:Qty: 1 on 10/29/2010 at [facility] Bilateral: Urethra J And J Ethicon Womens H / Uro 06/21/2011 [id number]# / / [id number] [place] [address] MEDICARE PART B HB ONLY MEDICARE PART A HB ONLY MEDICA SELECT SOLUTION [place] [address] MEDICARE PROVIDER BASED [employer] MEDICARE PROVIDER BASED Advance Directives * Full Code (Latest Code Status on File) Date Activated Date Inactivated Comments 10/29/2010 11:47 AM 10/31/2010 2:03 PM Care Teams Machine Tack Puller Relationship Specialty Start Date End Date Pcp, No . PCP - General 08/01/24
[2025-02-02 07:37] VITALS: BP 137/67; PULSE 68; RESP 16; TEMP 36.6; O2SAT 95; BMI 26.6
--- NOTE | 2025-02-02 07:44 | CRLHL7_ITS ---
For Patients: As a result of the Century Cures Act, medical imaging exams and procedure reports are released immediately into your electronic medical record. You may view this report before your referring provider. If you have questions, please contact your health care provider. INDICATION: debility, pna. (Sic) COMPARISON: 02/18/2023 TECHNIQUE: PA and lateralAP and lateral views of the chest. FINDINGS: The patient is slightly rotated leftward on the frontal view of the chest. Medical Devices: None. Lung Volumes: Adequate inspiration. No significant atelectasis. Lungs: Benign calcified peripheral left upper and midlung granulomas. Otherwise clear lungs. Pleura and Pleural spaces: No significant pleural effusion. No pneumothorax. Mediastinum: Small hiatus hernia. Unchanged tortuous descending thoracic aorta. This is a common senescent finding. Bony Thorax and Soft Tissues: No significant incidental findings. Diffuse osteopenia of the thoracic spine is again noted. Exaggerated thoracic kyphosis centered on the lower thoracic spine, also unchanged. IMPRESSION: No radiographic evidence of pneumonia or other acute cardiopulmonary process. Incidental findings as above. Dictated by Butch Frank MD @ 02/02/2025 8:21:54 AM (Electronically Signed)
--- NOTE | 2025-02-02 07:46 | ED.GENADULT ---
HPI - General Adult General Time Seen by Provider: 07:46 Date Seen: 02/02/25 Chief complaint: Weakness Stated complaint: general weakness Source: EMS Mode of arrival: EMS Limitations: other History of Present Illness HPI narrative: Jai is an 80-year-old female from Memory Care [facility] in [facility] with Alzheimer's dementia, debility, poor nutrition, type 2 diabetes mellitus, hypothyroidism, hypertension presents emerged department via EMS with worsening weakness. patient was seen yesterday by primary care provider, there was a referral made to have patient see a motor equipment captain, patient has had increased weakness, this morning harder to wake up. patient has not had any falls per EMS or patient, patient denies any pain at this time. HPI limited due to dementia Related Data Home Medications ?Medication ?Instructions ?Recorded ?Confirmed aspirin 81 mg tablet,delayed 81 mg PO QDAY 01/07/24 02/02/25 release (Adult Aspirin Regimen) donepezil 10 mg tablet 10 mg PO QDAY 01/07/24 02/02/25 Previous Rx's ?Medication ?Instructions ?Recorded lancing device with lancets kit #100 ea 04/18/22 (Accu-Chek FastClix Lancing Device kit) lancets #100 ea 10/13/22 lancets (Accu-Chek Fastclix Lancet #100 ea 10/16/22 Drum) cyanocobalamin (vitamin B-12) 1,000 mcg PO .3 times weekly #90 07/05/24 1,000 mcg tablet,extended release tabs omeprazole 20 mg capsule,delayed 20 mg PO .every other day #90 caps 07/05/24 release atenolol 50 mg tablet 50 mg PO QDAY #90 tabs 08/03/24 iron,carbonyl 65 mg-vitamin C 125 1 tab PO QDAY #90 tabs 08/22/24 mg tablet,delayed release (Vitron-C) levothyroxine 100 mcg tablet 100 mcg PO QDAY #90 tabs 09/22/24 losartan 100 mg tablet 100 mg PO QDAY #90 tabs 10/04/24 rosuvastatin 10 mg tablet 10 mg PO QDAY #90 tabs 10/04/24 blood sugar diagnostic (Accu-Chek #100 ea 11/25/24 Arlette Plus test strips) metformin 500 mg tablet,extended 500 mg PO BID #180 tabs 01/30/25 release 24 hr Allergies Allergy/AdvReac Type Severity Reaction Status Date / Time Sulfa (Sulfonamide Allergy Unknown Unknown Verified 02/01/25 13:25 Antibiotics) Review of Systems Status of ROS: Reports: other (dementia) [facility] Medical History (Updated 02/02/25 @ 15:02 by Jac Galvin MD) Spinal stenosis ?M48.00 - Spinal stenosis, site unspecified (ICD-10) Recurrent syncope (08/2024) ?R55 - Syncope and collapse (ICD-10) Sinus bradycardia by electrocardiogram (08/01/24) ?R00.1 - Bradycardia, unspecified (ICD-10) Alzheimer's dementia ?G30.9 - Alzheimer's disease, unspecified (ICD-10) ?F02.80 - Dementia in other diseases classified elsewhere, unspecified severity, without behavioral disturbance, psychotic disturbance, mood disturbance, and anxiety (ICD-10) Health care directive on file ?Z78.9 - Other specified health status (ICD-10) Memory problem (02/06/23) ?R41.3 - Other amnesia (ICD-10) CKD (chronic kidney disease) stage 3, GFR 30-59 ml/min ?N18.30 - Chronic kidney disease, stage 3 unspecified (ICD-10) Shingles (~03/2022) ?B02.9 - Zoster without complications (ICD-10) Vitamin B 12 deficiency (~02/2022) ?E53.8 - Deficiency of other specified B group vitamins (ICD-10) COVID ?U07.1 - COVID-19 (ICD-10) Type 2 diabetes mellitus (2007) ?E11.9 - Type 2 diabetes mellitus without complications (ICD-10) Systolic murmur (~2021) ?R01.1 - Cardiac murmur, unspecified (ICD-10) Multiple episodes of hypoglycemia ?E16.2 - Hypoglycemia, unspecified (ICD-10) Hypertension (1991) ?I10 - Essential (primary) hypertension (ICD-10) History of chronic cough ?Z87.09 - Personal history of other diseases of the respiratory system (ICD-10) History of benign breast biopsy (1972) ?Z98.890 - Other specified postprocedural states (ICD-10) Gastroesophageal reflux disease (2014) ?K21.9 - Gastro-esophageal reflux disease without esophagitis (ICD-10) Surgical History (Updated 02/01/25 @ 07:07 by Rut Acosta MD) History of tonsillectomy and adenoidectomy (1946) ?Z90.89 - Acquired absence of other organs (ICD-10) History of hysterectomy for benign disease (2002) ?Z90.710 - Acquired absence of both cervix and uterus (ICD-10) History of colonoscopy (03/02/13) ?Z98.890 - Other specified postprocedural states (ICD-10) History of cataract extraction (2018) ?Z98.49 - Cataract extraction status, unspecified eye (ICD-10) History of arthroscopy of left knee (2001) ?Z98.890 - Other specified postprocedural states (ICD-10) Family History Son Asthma Sister Breast cancer Mother Diabetes Father Myocardial infarction, Onset Age: 68 Social History Narrative: Exercise walking 45 minutes 4 days a week , retired from [employer] work and [employer], 4 kids Non-smoker Rarely consumes alcohol Smoking Status: Never smoker Do you use any of these nicotine containing products: None Second hand tobacco smoke exposure: No How often do you have a drink containing alcohol: monthly or less How often do you have six or more drinks on one occasion: Never AUDIT-C Alcohol total score: 1 Non-prescribed substance use: denies use Exam Narrative: Exam Narrative: general: no obvious distress lying comfortably HEENT: head is atraumatic, pupils equal round reactive to light, extraocular muscles intact, oropharynx clear and moist neck: supple, nontender cervical spine lungs: clear to auscultation bilaterally Heart: normal sinus rhythm S1-S2 abdomen: soft nontender, bowel sounds present, muscle skeletal: back is atraumatic, internal external rotation of the hips normal bilaterally +5 strength upper lower extremities Neuro: alert, not oriented to person place or time Const: Vital Signs, click to edit/add: Vital Signs - 24 hr 02/02/25 07:37 Temperature 97.9 F Pulse Rate [Pulse Oximeter] 68 Respiratory Rate 16 Blood Pressure [Ri ght Upper Arm] 137/67 Pulse Oximetry 95 Oxygen Delivery Me thod Room Air Course Course ED Course: 8:00 AM: aidet performed. vitals are stable. workup will include IV peripheral, 500 mL 0.9 normal saline bolus, will obtain labs including CBC, magnesium, CMP, urinalysis, imaging including XR chest PA and lateral, this is a chronic issue, no obvious signs of trauma on exam, will plan to rule out any acute causes at this time, including pneumonia or UTI, metabolic abnormalities, patient has required 2 to assess for any ambulation, may require admission for PT/ OT evaluation. Differential diagnosis include but not limited to CVA, cardiac arrhythmia, mi, CAD, metabolic abnormalities. Reevaluation(s) Time of Reevaluation #1: 11:07 Reevaluation #1: XR chest PA and lateral showed no acute cardiopulmonary process, EKG showed a normal sinus rhythm, bpm 63, no acute ST changes, CBC showed no leukocytosis, comprehensive metabolic panel showed mild hyponatremia 133, magnesium 1.4, urinalysis pending, patient was given the above care did well, did have social Work come evaluate the patient, due to fall risk patient would be admitted for observation for PT/OT evaluation, no local beds at this time. Family was updated. Reevaluation #2: Acceptance was made by Dr. Duong for observation, family and patient updated. Vital Signs Vital signs: Initial Vital Signs Temperature 97.9 F 02/02/25 07:37 Temperature Source Temporal Artery Scan 02/02/25 07:37 Pulse Rate 68 02/02/25 07:37 Respiratory Rate 16 02/02/25 07:37 Blood Pressure 137/67 02/02/25 07:37 Blood Pressure Mean 90 02/02/25 07:37 Blood Pressure Position Sitting 02/02/25 07:37 Pulse Oximetry 95 02/02/25 07:37 Oxygen Delivery Method Room Air 02/02/25 07:37 Vital Signs Temperature 97.9 F 02/02/25 07:37 Pulse Rate 68 02/02/25 07:37 Respiratory Rate 16 02/02/25 07:37 Blood Pressure 137/67 02/02/25 07:37 Pulse Oximetry 95 02/02/25 07:37 Oxygen Delivery Method Room Air 02/02/25 07:37 Temperature 97.9 F 02/02/25 07:37 Pulse Rate 68 02/02/25 07:37 Respiratory Rate 16 02/02/25 07:37 Blood Pressure 137/67 02/02/25 07:37 Pulse Oximetry 95 02/02/25 07:37 Oxygen Delivery Method Room Air 02/02/25 07:37 Medications Administered Medications: Discontinued Medications Generic Name Dose Route Start Last Admin Trade Name Salq PRN Reason Stop Dose Admin Sodium Chloride 500 mls @ 500 mls/hr 02/02/25 07:44 02/02/25 08:58 0.9 % Sodium Chloride 500 Ml IV 02/02/25 08:43 Infused .Q1H ONE Infusion Medical Decision Making Lab Data Labs: Lab Results 02/02/25 02/02/25 Range/Units 07:44 08:05 WBC 6.09 (4.50-11.00) K/uL RBC 4.35 (4.00-5.20) m/uL Hgb 11.7 L (12.0-16.0) gm/dL Hct 36.2 (33.0-51.0) % MCV 83 (80-100) fL MCH 27 (26-34) pg MCHC 32 (32-36) gm/dL RDW Coeff of Brittanie 12.9 (11.5-15.5) % Plt Count 296 (140-440) K/uL Neut % (Auto) 50.4 (42.0-72.0) % Lymph % (Auto) 36.0 (20-44) % [place] % (Auto) 8.7 (0.0-11.0) % Eos % (Auto) 3.8 (0.0-7.0) % Baso % (Auto) 1.1 (0.0-3.0) % Neut # (Auto) 3.07 (1.7-7.0) K/uL Lymph # (Auto) 2.19 (0.90-2.90) K/uL [place] # (Auto) 0.50 (0.00-0.90) K/UL Eos # (Auto) 0.23 (0.00-0.50) K/uL Baso # (Auto) 0.07 (0.00-0.30) K/uL Abs Immat Gran (auto) 0.00 (0.00-0.30) K/uL Imm/Tot Granulo (auto) 0.0 % Sodium 133 L (135-149) mmol/L Potassium 4.1 (3.6-5.1) mmol/L Chloride 98 (96-114) mmol/L Carbon Dioxide 22 (20-32) mmol/L Anion Gap 13 (7-15) mEq/L BUN 27 (7-30) mg/dL Creatinine 1.2 (0.5-1.5) mg/dL Estimated Creat Clear 29.90 Estimated GFR 45 ml/min Glucose 103 (60-115) mg/dL Calcium 9.4 (8.4-10.6) mg/dL Magnesium 1.4 L (1.5-2.6) mg/dL Total Bilirubin 1.1 (0.1-1.5) mg/dL AST 31 (12-35) U/L ALT 13 (4-35) U/L Alkaline Phosphatase 63 (40-150) U/L Total Protein 7.1 (6.0-8.3) g/dL Albumin 4.1 (3.3-5.0) g/dL Urine Color Yellow (Yellow) Urine Appearance Cloudy A (Clear) Urine pH 5.5 (5.0-8.5) Ur Specific [place] 1.020 (1.000-1.030) Urine Protein 1+ A (Negative) Urine Glucose (UA) Negative (Negative) Urine Ketones 3+ A (Negative) Urine Blood Trace-intact A (Negative) Urine Nitrite Positive A (Negative) Urine Bilirubin Negative (Negative) Urine Urobilinogen 0.2 (0.2-1.0) Ur Leukocyte Esterase 3+ A (Negative) Urine RBC 0-2 (0-2) Urine WBC 50-100 A (0-5) Ur Squamous Epith Cells Few (None-Few) Other Sediment Few A (None) Urine Bacteria Many A (None) Coarse Granular Casts Few A (None) Discharge Plan Discharge Clinical Impression: Generalized weakness, Debility, Alzheimer's dementia Patient Disposition: Admitted As Observation
--- OUTSIDE RECORDS SUMMARY | 2025-02-02 08:08 | XMS_ITS | Clinical Summary ---
Author Organization [facility] Address [facility] [place] [address] Care Team Providers Care Oil Dispenser Name Role Phone Pcp, No Primary Care [...] Department Care Team Description 01/25/2025 Telephone Courage [facility] [address] [facility] [address] [place] [address] Unknown, Doctor Questions (Medication List) from Last 3 Months Immunizations Immunization Administration Dates Next Due COVID-19 vaccine (Moderna 100mcg/0.5mL) RAFIA ESPINOZA 06/28/2021 COVID-19 vaccine ([employer] Workout[employer] NTech 30mcg/0.3mL) PF, MDV 12/05/2020,11/14/2020 Hepatitis A [...] on file Legal Sex Female 7:32 AM OFFICE PROFESSIONAL Gender Identity Not on file Sexual Orientation Not on file Obstetrics History Last Filed Vital Signs Vital Sign Reading Time Taken Comments Blood Pressure 114/56 08/01/2024 10:35 AM OFFICE PROFESSIONAL Pulse 58 08/01/2024 10:35 AM OFFICE PROFESSIONAL Temperature 36.1 C (97 F) 08/01/2024 10:35 AM OFFICE PROFESSIONAL Respiratory Rate 16 08/01/2024 10:35 AM OFFICE PROFESSIONAL Oxygen Saturation 98% 08/01/2024 10:35 AM OFFICE PROFESSIONAL Inhaled Oxygen Concentration - - Weight 65.3 [...] age 65+ 12/07/2022, 07/24/2020 ([facility]) Tetanus booster 10/13/2023 10/13/2013 COVID-19 vaccine series ( season) 2024 06/09/2024, 01/07/2024, 07/01/2023, Additional history exists Influenza Vaccine (Season Ended) 2025 07/13/2021, 06/26/2020, 07/20/2019, Additional history exists Tdap Completed 10/13/2013 Pneumococcal series for age 50+ Completed 11/13/2015, 11/13/2015, 10/24/2008, Additional history exists Medical Devices Implanted Type Area Instructional Systems Design Consultant Device Identifier Shelf Expiration Date Model / Serial / Lot Mesh Y-Sling Intepro Lg - [id number] Implanted:Qty: 1 on 10/29/[address] [facility] Vagina [employer] 04/29/2011 [id number] / / [id number] Device Tvt Exact Retropubic Sys Sling - [id number] Implanted:Qty: 1 on 10/29/[address] [facility] Bilateral: Urethra J And J Ethicon Womens H / Uro 06/21/2011 [id number]# / / [id number] [place] [address] MEDICARE PART B HB ONLY MEDICARE PART A HB ONLY MEDICA SELECT SOLUTION [place] [address] MEDICARE PROVIDER BASED [id number] PRIME [employer] MEDICARE PROVIDER BASED Advance Directives * Full Code (Latest Code Status on File) Date Activated Date Inactivated Comments 10/29/2010 11:47 AM 10/31/2010 2:03 PM Care Teams Oil Dispenser Relationship Specialty Start Date End Date Pcp, No . PCP - General 08/01/24
--- OUTSIDE RECORDS SUMMARY | 2025-02-02 08:08 | XMS_ITS ---
Author Organization [facility] Address [address] [place] [address] , [address] [place] [address] Phone Care Team Providers Care High School Director Name Role Phone Tamiko Kline MD [phone] Conditions or Problems Problem Name Problem Code Onset Date Status Entry Date Provider Comment Standard Description Annotate Difficulty in walking [id number] (SNOMED CT) Active Tamiko Kline MD Walking disability Medications No information available. Medications Administered No information available. Allergies, Adverse Reactions, Alerts No information available. Results No information available. Plan of Care Type Date Detail Appointment 10:10 AM Tamiko Thrasher i, MD, [address], [address], [place], [address], Pending order Follow up Pending order Follow up Procedures Code Procedure Name Date Entry Date CPT-G2211 Complex e/m visit add on 202 01/23/06 Vital Signs No information available. Immunizations No information available. Advance Directives No information available.
--- OUTSIDE RECORDS SUMMARY | 2025-02-02 08:08 | XMS_ITS | Clinical Summary ---
Author Organization [facility] Address [address] , [address] [place] [address] Phone Care Team Providers Care Punch Card Operator Name Role Phone Braxton Torres Conditions or Problems Problem Name Problem Code Onset Date Status Entry Date Provider Comment Standard Description Annotate Difficulty in walking 934248193 (SNOMED CT) 01/24 Active 01/24 Tamiko Kline MD Walking disability Dementia in other diseases classified elsewhere, moderate, without behavioral disturbance , psychotic disturbance , mood disturbance , and anxiety 76191563 (SNOMED CT) 10/09 Active 10/09 Kirstie Carbajal Dementia Alzheimer's disease, moderate 75090294 (SNOMED CT) 10/09 Active 10/09 Tamiko Kline MD Alzheimer's disease Dementia, moderate 62859168 (SNOMED CT) 10/09 Inactive 10/09 Tamiko Kline MD Dementia Ischemic vascular disease 86570190 (SNOMED CT) 06/09 Active 06/09 Chloe Gisel Cherucheril PA-C Ischemia Abnormal brain MRI 451255379 (SNOMED CT) 06/09 Active 06/09 Chloe Gisel Cherucheril PA-C Magnetic resonance imaging of brain abnormal Hyperlipide tim 42579196 (SNOMED CT) 05/11 Active 05/11 Cristi Lewis MD Hyperlipidemia Hypertensio n 38841557 (SNOMED CT) 05/11 Active 05/11 Cristi Lewis MD Hypertensive disorder Hx of diabetes mellitus (DM), type 2 530884487 (SNOMED CT) 05/11 Active 05/11 Cristi Lewis MD History of diabetes mellitus type 2 Short term memory loss 944383302 ([facility]) 05/11 Active 05/11 Cristi Lewis MD Poor short-term memory Cognitive changes 933215148 ([facility]) 05/11 Active 05/11 Cristi Lewis MD Impaired cognition B12 deficiency 175749858 ([facility]) 05/11 Active 05/11 Cristi Lewis MD Cobalamin deficiency Medications Medication Instructions Start Date Stop Date Generic Name NDC Provider ACCU-CHEK YUDY PLUS STRP USE STRIP TO CHECK GLUCOSE ONCE DAILY 01/31 blood sugar diagnostic [id number] Tamiko Kline MD YUMVS GLUCOSE GUMMIES 2 GM CHEW as needed 01/31 glucose 06568949974 Tamiko Kline MD SM IRON 325 (65 Fe) MG TABS 1 tab daily 01/31 ferrous sulfate 96954467125 Tamiko Kline MD REMICADE 100 MG SOLR infusion every other month for RA 01/31 infliximab 86118708529 Tamiko Kline MD PRESERVISION AREDS CAPS 2 caps daily 01/31 vitamins a,c,y-kqwt-rkconq 24735004462 Tamiko Kline MD aspirin 81 mg capsule aspirin Tamiko leeC vitron-C Tamiko Kline MD DONEPEZIL HCL 10 MG TABS take 1 tab (10 mg) by mouth at bedtime. 10/11 donepezil 66636849958 Caitlyn March PA-C DONEPEZIL HCL 10 MG TABS TAKE 1 TABLET BY MOUTH AT BEDTIME 10/01 donepezil 58758630291 Tamiko Kline MD SIMVASTATIN 20 MG TABS 02/03 simvastatin 73132773948 Chloe Callaway PA-C ROSUVASTATIN CALCIUM 10 MG TABS rosuvastatin 64688627007 Chloe Callaway PA-C DONEPEZIL HCL 5 MG TABS take 1 tab by mouth at bedtime. After 1 month, increase to 2 tab (10 mg) by mouth at bedtime. 06/09 donepezil [id number] Chloe Giselmarlon Callaway PA-C DONEPEZIL HCL 10 MG TABS take 1 tab (10 mg) by mouth at bedtime. 10/11 donepezil 04064097119 Chloe Callaway PA-C ACCU-CHEK YUDY PLUS STRP USE STRIP TO CHECK GLUCOSE ONCE DAILY 01/31 blood sugar diagnostic 17215455208 Chloe Callaway PA-C HYDROCHLOROTHIAZIDE 25 MG TABS hydrochlorothiaz i de 37384305339 Chloe Callaway PA-C SIMVASTATIN 20 MG TABS 02/03 simvastatin 64820157680 Chloe Callaway PA-C LEVOTHYROXINE SODIUM 100 MCG TABS levothyroxine 25094002857 Chloe Callaway PA-C OMEPRAZOLE 20 MG CPDR omeprazole 33296693534 Chloe Callaway PA-C LOSARTAN POTASSIUM 100 MG TABS losartan 85441799791 Chloe Callaway PA-C ATENOLOL 50 MG TABS 1 tab BID atenolol 274501727 10 Chloe Callaway PA-C METFORMIN HCL ER 500 MG [id number] 1 tab BID metformin 40295704124 Chloe Callaway PA-C VITAMIN B-12 1000 MCG TABS 1 tab daily cyanocobalamin (vitamin b-12) 22563864045 Chloe Callaway PA-C PRESERVISION AREDS CAPS 2 caps daily 01/31 vitamins a,c,h-lhoa-wyynek 61005039968 Chloe Callaway PA-C REMICADE 100 MG SOLR infusion every other month for RA 01/31 infliximab 99299754087 Chloe Callaway PA-C SM IRON 325 (65 Fe) MG TABS 1 tab daily 01/31 ferrous sulfate 24680866871 Chloe Callaway [facility] GNP GLUCOSE GUMMIES 2 GM CHEW as needed 01/31 glucose 17042946784 Chloe Gisel Callaway [facility] DONEPEZIL HCL 5 MG TABS take 1 tab by mouth at bedtime. After 1 month, increase to 2 tab (10 mg) by mouth at bedtime. 06/09 donepezil [id number] Chloe Callaway [facility] Medications Administered No information available. Allergies, Adverse [...] Done Documenta tion of current medications (procedure) [id number] Mild Total scor e [MoCA] MMSE SCORE 23 Total scor e [MMSE] Office Visit: fax DEMENTIA2 Assessment of cognition performed and results reviewed. Total score [MMSE] [id number] Moderate Total sco re [MoCA] SLUMSSCORE 11 Total scor e [MMSE] DEMENTIA1 Mild Cognitive Impairment Total score [MMSE] Internal Other: Verbal Autho rization/Emergency Contact - OBS VERBAL_EMER Done Verbal authorization and emergency contact Plan of Care Type Date Detail Appointment 10:10 AM Tamiko Thrasher i, MD, [address], [address], [place], [address], Pending order Follow up Pending order Follow [...] on 202 01/23/06 ORDERS Follow up KIMBERLY [id number] SLUMS CPT-G2211 Complex e/m visit add on 202 12/30/18 CPT-Q6459W MultiHance Gadoliniu m-based MR Contrast - 15 ml vial CPT-13010 MRA Neck W/WO [id number] MRA-Neck W/WO ORDERS Patient Instructions LOINC 50245-4 MMSE ORDERS Patient Instructions ORDERS Follow up KRANTHI ORDERS Follow up ORDERS Follow up KRANTHI [id number] MRA-Head W/O [id number] MRA-Neck W/WO CPT-33109 MRA Head W/O CPT-67763 MRA Neck W/WO CPT-M3004N ProHance Gadolinium- based MR Contrast - 15 ml vial ORDERS Lipid Panel with LDL /HDL Ratio - fasting after midnight ORDERS Obtain outside records 06/09 ORDERS Obtain outside records 06/09 ORDERS Instructions for Staff 06/09 ORDERS Follow up after testing 2022 [id number] MRI-Brain W/O CPT-44165 MRI Brain W/O ORDERS AD-Detect Amyloid Beta 42/40 ORDERS Ammonia LOINC 02800-1 MMSE ORDERS Follow up with Neurologist or [...]
[2025-02-02 08:18] LABS: Basophils Absolute Auto 0.07 K/uL (0.00-0.30); Basophils Percent Auto 1.1 % (0.0-3.0); Eosinophils Absolute Auto 0.23 K/uL (0.00-0.50); Eosinophils Percent Auto 3.8 % (0.0-7.0); Hematocrit 36.2 % (33.0-51.0); Hemoglobin* 11.7 gm/dL (12.0-16.0); Lymphocytes Absolute Auto 2.19 K/uL (0.90-2.90); Mean Corpuscular HGB Conc 32 gm/dL (32-36); Mean Corpuscular Hemoglobin 27 pg (26-34); Mean Corpuscular Volume 83 fL (80-100); Monocytes Percent Auto 8.7 % (0.0-11.0); Neutrophils Absolute Auto 3.07 K/uL (1.7-7.0); Neutrophils Percent Auto 50.4 % (42.0-72.0); Platelet Count* 296 K/uL (140-440); RDW Coefficient of Variation % 12.9 % (11.5-15.5); Red Blood Count 4.35 m/uL (4.00-5.20); White Blood Count* 6.09 K/uL (4.50-11.00)
[2025-02-02 08:20] LABS: Slide Review Reflex No
[2025-02-02] MEDS: 0.9 % SODIUM CHLORIDE 500 ML 500 ML IV (08:33)
[2025-02-02 08:41] LABS: Albumin* 4.1 g/dL (3.3-5.0); Chloride* 98 mmol/L (96-114)
[2025-02-02 08:42] LABS: Potassium* 4.1 mmol/L (3.6-5.1); Sodium* 133 mmol/L (135-149)
[2025-02-02 08:44] LABS: Alanine Aminotransferase* 13 U/L (4-35); Alkaline Phosphatase* 63 U/L (40-150); Anion Gap 13 mEq/L (7-15); Aspartate Amino Transferase* 31 U/L (12-35); Bilirubin Total* 1.1 mg/dL (0.1-1.5); Blood Urea Nitrogen* 27 mg/dL (7-30); Carbon Dioxide* 22 mmol/L (20-32); Creatinine* 1.2 mg/dL (0.5-1.5); Estimated Glomerular Filt Rate 45 ml/min
[2025-02-02 08:45] LABS: Calcium* 9.4 mg/dL (8.4-10.6); Glucose* 103 mg/dL (60-115); Magnesium* 1.4 mg/dL (1.5-2.6); Total Protein* 7.1 g/dL (6.0-8.3)
--- NOTE | 2025-02-02 13:23 | PC.SOCIAL ---
Social work consult/Emergency Department: brush worker met with the pt, her and her daughter in the ED this morning after receiving a call from the pt's nurse on duty in the ED. Pt's PCP had also sent in a clinic referral for the pt yesterday, as the pt was just seen in the clinic yesterday by her PCP. brush worker gave the family information about Medical Home Care vs. [facility] as the expressed that he needed more help caring for the pt at home, as she has been declining over the past three weeks. Pt does have Alzheimer Dimentia. brush worker provided the pt and her family with the Medical Home Care list and the [facility] list for their reference. Pt's family also talked about hospice at home in the future. They shared they talked to Dr. Acosta about hospice a little bit yesterday at the pt's clinic appointment. brush worker explained that most hospice agencies will come out to do informational sessions on hospice if a patient/family wants to know more about hospice. brush worker offered to set-up an informational meeting for the family at their home with a hospice agency of their choice, but they wanted to think about it. brush worker provided the pt and her family with the Hospice Agency list and also an informational brochures on Choosing Hospice and some more informational brochures on [facility], [facility] and [facility]. brush worker also provided the pt and her family with an information brochure on Planning Ahead from [employer] [place] [employer] that explains next steps when looking forward which explains how Assisted Living Facilities and [facility] Facilities for long-term care are private pay and if people need assistance with paying for those facilities how they go about starting the process, as it can be a long process to get approved to pay for funding for those services. Social work to follow-up as needed.
[2025-02-02 13:40] LABS: Appearance Urine Cloudy (Clear); Bilirubin Urine Negative (Negative); Blood Urine Trace-intact (Negative); Color Urine Yellow (Yellow); Glucose Urine Negative (Negative); Ketones Urine 3+ (Negative); Leukocyte Esterase Urine 3+ (Negative); Nitrite Urine Positive (Negative); Protein Urine 1+ (Negative); Urobilinogen Urine 0.2 (0.2-1.0); pH Urine 5.5 (5.0-8.5)
[2025-02-02 13:51] LABS: Bacteria Urine Many; RBC Urine 0-2 (0-2); Squamous Epithelial Cell Urine Few (None-Few); WBC Urine 50-100 (0-5)
[2025-02-02 13:52] LABS: Coarse Granular Casts Urine Few; Other Sediment Urine Few
[2025-02-02 16:06] VITALS: BP 112/78; PULSE 72; RESP 16; TEMP 36.7; O2SAT 98; BMI 20.8
[2025-02-02 19:00] VITALS: BP 116/59; PULSE 71; RESP 20; TEMP 36.6; O2SAT 98
[2025-02-02 19:21] LABS: Thyroid Stimulating Hormone* 0.321 uIU/mL (0.270-4.20)
--- NOTE | 2025-02-02 19:41 | PC.NURSE ---
Pt with history of dementia with supportive, helpful daughter in room. Pt in chair asking for . Able to feed self but has recent poor oral intake. Up in [facility] with [facility]. Pt continent of bowel and bladder.
--- NOTE | 2025-02-02 21:21 | P.IMHP_ITS ---
Assessment and Plan Assessment and plan (1) Alzheimer's dementia: Problem comment: Fairly severe and disabling. Requiring 24 hour care and should be up with assistance. has been providing this care and would like to continue to do so with concerns about the burden of being a more than full-time caregiver Status: Acute (2) Debility: Status: Acute (3) Generalized weakness: Status: Acute (4) Weight loss: Problem comment: In the past 6 months has lost 6 kg or 10% of her weight. Likely due to poor feliz etite. Unclear how much of this is from her dementia. Could be a side effect of medications so I recommend we stop donepezil and metformin. Status: Acute (5) UTI (urinary tract infection): Problem comment: Likely has a UTI. Unclear if this is contributing to her acute on chronic weakness. Will initiate therapy but I would not expect that this would make a substantial improvement in her overall health status Status: Acute (6) Poor mobility: Problem comment: She is at risk for falls and would recommend she use a walker but she is forgetful and or reluctant to do so Status: Acute (7) Spinal stenosis: Problem comment: severe Status: Chronic (8) Recurrent syncope: Problem comment: zio benign Sr, 7 beat SVT , no pauses 08/2024 Cardiology consult recommended tapering blood pressure medications. Patient could likely have additional de-prescribing of medications for chronic disease. Status: Chronic (9) Palliative care encounter: Problem comment: I discussed with patient's , patient's brother and her daughter her current health status and plan of care. Family is considering changing goals of care to more palliation. There does not appear to be a treatable problem that will substantially improve her declining neurologic status, appetite, immobility, quality of life. Status: Acute (10) Hypothyroidism: Problem comment: Adequate to supratherapeutic supplementation Status: Chronic (11) Vitamin B 12 deficiency: Problem comment: Adequate supplementation Status: Chronic Plan Patient admitted to the hospital for evaluation of acute on chronic weakness and mental status changes. Ongoing concerns about 's ability to continue to maintain his more than full-time caregiver status. Consult social media executive for that. I recommend stopping donepezil and metformin with recent weight loss and loss of appetite. I anticipate however ongoing mental and physical decline over the next few months. This plan of care was discussed in detail with patient's family. Total Time Spent Total Time Spent: Total time spent today is 90 minutes in reviewing outside records, coordination of care, discussing declining health status, goals of care, options for ongoing supportive care. Hospitalist- H&P: DESTINEE History of Present Illness Date Seen: 02/02/25 Chief complaint: general weakness Narrative: Jai Weston is a 80 year old female with severe Alzheimer's dementia admitted to the hospital with acute on chronic confusion and weakness. Patient lives at home with her . He is her primary caregiver an gives the information about her current health status. For the past couple months she has had a more rapid decline with weakness poor appetite and weight loss. In reviewing her chart I see that she weighed 61 kg July of last year and now weighs 55 kg. This represents a 6 kg weight loss or 10% of her body weight in the past 6 months. She was seen in clinic yesterday and referred to nutrition counseling. of that she has been weaker and he is having more concerns about her falling. He got a walker for her but she mostly does not use it. She mostly ambulates independently and hold onto furniture. Last night she was up in the middle of the night. She did not appear to ill or injured. He got her back to bed but then she seemed more confused this morning. She has not had any obvious symptoms of acute illness such as fever, dyspnea, cough, significant pain. Evaluation the emergency room was unremarkable except for her fairly severe dementia and markedly abnormal urine with pyuria. Unable to determine if she is symptomatic related to this although she does have urinary frequency. She also has incontinence. She has previously been evaluated by Neurology for this and placed on Aricept. She was diagnosed about 3 years ago with dementia but her thinks it has been going on longer than that. She saw country printer in August 2024 because she has had previous episodes of syncope. It is felt at that time she was getting too much blood pressure medication. Her notes occasional episodes where she gets a little bit more agitated. He manages her medications. [facility] Medical History (Updated 02/02/25 @ 21:47 by Hussain Duong MD) Palliative care encounter ?Z51.5 - Encounter for palliative care (ICD-10) RA (rheumatoid arthritis) (09/23/12) ?M06.9 - Rheumatoid arthritis, unspecified (ICD-10) Hypothyroid (09/23/12) ?E03.9 - Hypothyroidism, unspecified (ICD-10) Hyperlipidemia (05/11/23) ?E78.5 - Hyperlipidemia, unspecified (ICD-10) HTN (hypertension) (09/23/12) ?I10 - Essential (primary) hypertension (ICD-10) GERD (gastroesophageal reflux disease) (09/23/12) ?K21.9 - Gastro-esophageal reflux disease without esophagitis (ICD-10) B12 deficiency (05/11/23) ?E53.8 - Deficiency of other specified B group vitamins (ICD-10) Ischemic vascular disease (06/09/23) ?I99.8 - Other disorder of circulatory system (ICD-10) Difficulty in walking (01/24/25) ?R26.2 - Difficulty in walking, not elsewhere classified (ICD-10) Abnormal brain MRI (06/09/23) ?R90.89 - Other abnormal findings on diagnostic imaging of central nervous system (ICD-10) Spinal stenosis ?M48.00 - Spinal stenosis, site unspecified (ICD-10) Recurrent syncope (08/2024) ?R55 - Syncope and collapse (ICD-10) Sinus bradycardia by electrocardiogram (08/01/24) ?R00.1 - Bradycardia, unspecified (ICD-10) Alzheimer's dementia ?G30.9 - Alzheimer's disease, unspecified (ICD-10) ?F02.80 - Dementia in other diseases classified elsewhere, unspecified severity, without behavioral disturbance, psychotic disturbance, mood disturbance, and anxiety (ICD-10) Health care directive on file ?Z78.9 - Other specified health status (ICD-10) Memory problem (02/06/23) ?R41.3 - Other amnesia (ICD-10) CKD (chronic kidney disease) stage 3, GFR 30-59 ml/min ?N18.30 - Chronic kidney disease, stage 3 unspecified (ICD-10) Shingles (~03/2022) ?B02.9 - Zoster without complications (ICD-10) Vitamin B 12 deficiency (~02/2022) ?E53.8 - Deficiency of other specified B group vitamins (ICD-10) COVID ?U07.1 - COVID-19 (ICD-10) Type 2 diabetes mellitus (2007) ?E11.9 - Type 2 diabetes mellitus without complications (ICD-10) Systolic murmur (~2021) ?R01.1 - Cardiac murmur, unspecified (ICD-10) Multiple episodes of hypoglycemia ?E16.2 - Hypoglycemia, unspecified (ICD-10) Hypertension (1991) ?I10 - Essential (primary) hypertension (ICD-10) History of chronic cough ?Z87.09 - Personal history of other diseases of the respiratory system (ICD- 10) History of benign breast biopsy (1972) ?Z98.890 - Other specified postprocedural states (ICD-10) Gastroesophageal reflux disease (2014) ?K21.9 - Gastro-esophageal reflux disease without esophagitis (ICD-10) Surgical History History of tonsillectomy and adenoidectomy (1946) ?Z90.89 - Acquired absence of other organs (ICD-10) History of hysterectomy for benign disease (2002) ?Z90.710 - Acquired absence of both cervix and uterus (ICD-10) History of colonoscopy (03/02/13) ?Z98.890 - Other specified postprocedural states (ICD-10) History of cataract extraction (2018) ?Z98.49 - Cataract extraction status, unspecified eye (ICD-10) History of arthroscopy of left knee (2001) ?Z98.890 - Other specified postprocedural states (ICD-10) Family History Son Asthma Sister Breast cancer Mother Diabetes Father Myocardial infarction, Onset Age: 68 Social History (Updated 02/02/25 @ 21:35 by Hussain Duong MD) Narrative: She is , lives at home with her to his primary full- time caregiver. is healthcare power of transactional attorney. They have begun to discuss goals of care and palliative care. She does not drink. She does not smoke. She has a walker but does not use it regularly What is your current living situation?: I presently have a place to live Problems where you live: no known problems Problems where you live details: none In the past 12 months, utilities in danger of being shut off: no In past 12 months, lack of transportation kept you from medical appts, meetings, work, or getting things needed for daily living: no In the past 12 mos, have been you worried that your food would run out before you had money to buy more?: never true In the past 12 mos, the food you bought just didn't last and you didn't have money to buy more?: never true Smoking Status: Never smoker Do you use any of these nicotine containing products: None Second hand tobacco smoke exposure: No How often do you have a drink containing alcohol: never How often do you have six or more drinks on one occasion: Never AUDIT-C Alcohol total score: 0 Non-prescribed substance use: denies use Caffeine: Yes (2 cups) How often does anyone, including family, friends and others, physically hurt you : unable to answer How often does anyone, including family, friends and others, insult or talk down to you: unable to answer How often does anyone, including family, friends and others, threaten you with harm: unable to answer How often does anyone, including family, friends and others, scream or curse at you: unable to answer Meds Home Medications and Allergies Home Medications ?Medication ?Instructions ?Recorded ?Confirmed ?Type lancing device with lancets kit #100 ea 04/18/22 02/01/25 Rx (Accu-Chek FastClix Lancing Device kit) lancets #100 ea 10/13/22 02/01/25 Rx lancets (Accu-Chek Fastclix Lancet #100 ea 10/16/22 02/01/25 Rx Drum) aspirin 81 mg tablet,delayed 81 mg PO QDAY 01/07/24 02/02/25 History release (Adult Aspirin Regimen) donepezil 10 mg tablet 10 mg PO QDAY 01/07/24 02/02/25 History cyanocobalamin (vitamin B-12) 1,000 mcg PO .3 times weekly #90 07/05/24 02/02/25 Rx 1,000 mcg tablet,extended release tabs omeprazole 20 mg capsule,delayed 20 mg PO .every other day #90 caps 07/05/24 02/02/25 Rx release atenolol 50 mg tablet 50 mg PO QDAY #90 tabs 08/03/24 02/02/25 Rx iron,carbonyl 65 mg-vitamin C 125 1 tab PO QDAY #90 tabs 08/22/24 02/02/25 Rx mg tablet,delayed release (Vitron-C) levothyroxine 100 mcg tablet 100 mcg PO QDAY #90 tabs 09/22/24 02/02/25 Rx losartan 100 mg tablet 100 mg PO QDAY #90 tabs 10/04/24 02/02/25 Rx rosuvastatin 10 mg tablet 10 mg PO QDAY #90 tabs 10/04/24 02/02/25 Rx blood sugar diagnostic (Accu-Chek #100 ea 11/25/24 02/01/25 Rx Arlette Plus test strips) metformin 500 mg tablet,extended 500 mg PO BID #180 tabs 01/30/25 02/02/25 Rx release 24 hr Allergies Allergy/AdvReac Type Severity Reaction Status Date / Time Sulfa (Sulfonamide Allergy Unknown Unknown Verified 02/01/25 13:25 Antibiotics) Exam Narrative: Exam Narrative: She is alert and appears mildly anxious and restless. She is sitting in a chair and gets up from the chair and walks out of the room during our interview. She is observed to hold onto furniture but not use a walker. She is largely mute and minimally responds to questions. She otherwise appears comfortable. Eyes normal. Oropharynx normal. Neck is supple without mass or adenopathy. She is observed to have marked curvature of her thoracic spine causing a dowager's hump. Respirations are clear to auscultation. Cardiovascular: S1, S2, regular rate and rhythm. No murmur gallop or rub. Abdomen: Bowel sounds active. Abdomen is soft without tenderness or mass. External genitalia normal. She moves all 4 extremities well. No focal weakness. No edema. Intact pulses. Const: Vital Signs, click to edit/add: Vital Signs - 24 hr 02/02/25 07:37 02/02/25 16:06 02/02/25 19:00 Temperature 97.9 F 98.1 F 97.9 F Pulse Rate [Pulse Oximeter] 68 72 71 Respiratory Rate 16 16 20 Blood Pressure [Le ft Arm] 112/78 116/59 L Blood Pressure [Ri ght Upper Arm] 137/67 Pulse Oximetry 95 98 98 Oxygen Delivery Me thod Room Air Room Air Room Air Documenting provider has reviewed patient's vital signs: yes Hospitalist - H&P: Result Labs Labs: Short CBC 02/02/25 Range/Units 08:05 WBC 6.09 (4.50-11.00) K/uL Hgb 11.7 L (12.0-16.0) gm/dL Hct 36.2 (33.0-51.0) % Plt Count 296 (140-440) K/uL BMP 02/02/25 08:05 Sodium 133 L Potassium 4.1 Chloride 98 Carbon Dioxide 22 BUN 27 Creatinine 1.2 Glucose 103 Calcium 9.4 Liver Function 02/02/25 Range/Units 08:05 Total Bilirubin 1.1 (0.1-1.5) mg/dL AST 31 (12-35) U/L ALT 13 (4-35) U/L Alkaline Phosphatase 63 (40-150) U/L Albumin 4.1 (3.3-5.0) g/dL Urine 02/02/25 Range/Units 07:44 Urine Color Yellow (Yellow) Urine Appearance Cloudy A (Clear) Urine pH 5.5 (5.0-8.5) Ur Specific [place] 1.020 (1.000-1.030) Urine Protein 1+ A (Negative) Urine Glucose (UA) Negative (Negative) Imaging Chest x-ray: Radiologist's impression: [place] [address] Diagnostic Imaging Report Patient: Jai Weston MR#: [id number] : 1945 Acct:[id number] Loc: ED Service Date: 02/02/[address]: Ordering Physician: Jac Galvin M.D. Date of Service: 02/02/25 Procedure(s): XR chest 2V Accession Number(s): [id number] cc: Rut Acosta M.D.; Jac Galvin M.D.~ FINDINGS: The patient is slightly rotated leftward on the frontal view of the chest. Medical Devices: None. Lung Volumes: Adequate inspiration. No significant atelectasis. Lungs: Benign calcified peripheral left upper and midlung granulomas. Otherwise clear lungs. Pleura and Pleural spaces: No significant pleural effusion. No pneumothorax. Mediastinum: Small hiatus hernia. Unchanged tortuous descending thoracic aorta. This is a common senescent finding. Bony Thorax and Soft Tissues: No significant incidental findings. Diffuse osteopenia of the thoracic spine is again noted. Exaggerated thoracic kyphosis centered on the lower thoracic spine, also unchanged. IMPRESSION: No radiographic evidence of pneumonia or other acute cardiopulmonary process. Incidental findings as above.
[2025-02-02] MEDS: cephALEXin 500 MG CAPSULE PO (21:58)
[2025-02-02] MEDS: SODIUM CHLORIDE 0.9 % (FLUSH) 10 ML SYRINGE 5 ML IVF (21:59)
[2025-02-02 22:03] VITALS: PULSE 79; RESP 16; O2SAT 99
[2025-02-02 23:00] VITALS: RESP 16
[2025-02-03 04:32] VITALS: BP 119/66; PULSE 80; RESP 16; O2SAT 96
--- NOTE | 2025-02-03 06:37 | PC.NURSE ---
Shift note ([id number]): Patient pleasant, alert and cooperative. Ambulated with guided assist of one. Frequently urinated unmeasurable amounts from start of shift until bedtime. Slept well. Up once during the night to urinate. Output at that time was 150mL. Denied pain. Daughter remained at bedside during night. ?
[2025-02-03] MEDS: LEVOTHYROXINE 100 MCG TABLET PO (06:47)
[2025-02-03 08:19] VITALS: BP 125/87; PULSE 89; RESP 16; TEMP 36.6; O2SAT 95
[2025-02-03] MEDS: SODIUM CHLORIDE 0.9 % (FLUSH) 10 ML SYRINGE 5 ML IVF (08:51)
[2025-02-03] MEDS: ASPIRIN 81 MG TABLET EC PO (08:51)
[2025-02-03] MEDS: ROSUVASTATIN CALCIUM 10 MG TABLET PO (08:51)
[2025-02-03] MEDS: MAGNESIUM OXIDE 400 MG TABLET PO (08:51)
[2025-02-03] MEDS: LOSARTAN POTASSIUM 50 MG TABLET 100 MG PO (08:51)
[2025-02-03] MEDS: cephALEXin 500 MG CAPSULE PO (08:51)
[2025-02-03] MEDS: OMEPRAZOLE 20 MG CAPSULE DR PO (08:51)
[2025-02-03] MEDS: atenoloL 50 MG TABLET PO (08:51)
--- NOTE | 2025-02-03 10:40 | PM.DS1 ---
DS: Providers Provider Date Seen: 02/03/25 Date of admission: 02/02/25 15:45 Primary care physician: Rut Acosta MD Admitting Clinician: Hussain Duong MD Consults: SW, OT, PT, COLOR STRAINING BAG WASHER Attending Physician on discharge: Patricia hCris MD Date of Discharge: 02/03/25 DS: Diagnosis Discharge Diagnosis (1) UTI (urinary tract infection): Status: Acute Problem details: - UA positive, culture growing >100k CFU - unclear if UTI is contributing to her acute on chronic weakness - treating with Keflex upon d/c, family understands that treatment may not affect overall functional status (2) Alzheimer's dementia: Status: Acute Problem details: Fairly severe and disabling. Requiring 24 hour care and should be up with assistance. has been providing this care and would like to continue to do so with concerns about the burden of being a more than full-time caregiver, given resources for Memory Care Facilities locally (3) Weight loss: Status: Acute Problem details: - in the 6 months prior to admission, had lost 6 kg (10% of her body weight) - 2/2 poor appetite vs disease progression vs iatrogenic - after discussion with family, will reduce pill burden (4) Poor mobility: Status: Acute Problem details: - high fall risk, seen by therapies during stay (5) Hypothyroidism: Status: Chronic Problem details: - Adequate to supratherapeutic supplementation - given age and comorbidities, family comfortable stopping Levothyroxine at this time with PCP f/u DS: Summary Hospital Course Hospital Course: Jai was admitted to the hospital on 02/03/2020 for acute on chronic weakness in the setting of known Alzheimer's dementia. Workup revealed + UTI, no concerning or reversible abnormalities. Treated with Keflex. Seen by therapies (including speech) and social work during stay; discussed plan of care with family at length. We are reducing pill burden given progressive dementia symptoms and weight loss. On 02/03, they are comfortably taking her home with Home Health assistance, and are pursuing other avenues for care as an outpatient (Memory Care, etc). Status at Discharge Functional status at discharge: uses cane/walker Overall status at discharge: patient is progressing back to baseline Time Spent with Patient Time attestation: Total time spent providing and/or coordinating discharge services: Time spent: Greater than 30 minutes Exam Narrative: Exam Narrative: Patient is seen in bed, appears frail but nontoxic She is able to sit up from a laying position without assistance She is answering some questions appropriately. Tells me she has no pain, but does not remember how many children she has Cardiovascular exam reveals regular rate and rhythm without concerning murmurs Lungs are clear to auscultation bilaterally Extremities are warm and well perfused without concerning edema Const: Vital Signs, click to edit/add: Vital Signs - 24 hr 02/02/25 16:06 02/02/25 19:00 02/02/25 22:03 Temperature 98.1 F 97.9 F Pulse Rate [Pulse Oximeter] 72 71 79 Respiratory Rate 16 20 16 Blood Pressure [Le ft Arm] 112/78 116/59 L Pulse Oximetry 98 98 99 Oxygen Delivery Me thod Room Air Room Air Room Air 02/02/25 23:00 02/03/25 04:32 02/03/25 08:19 Temperature 97.9 F Pulse Rate [Pulse Oximeter] 80 89 Respiratory Rate 16 16 16 Blood Pressure [Le ft Arm] 119/66 125/87 Pulse Oximetry 96 95 Oxygen Delivery Me thod Room Air Room Air DS: Data Data Completed and Pending Labs on day of discharge: Labs from last 24 hours 02/02/25 02/02/25 02/02/25 18:24 08:05 07:44 TSH 0.321 Urine Color Yellow Urine Appearance Cloudy A Urine pH 5.5 Ur Specific Manson 1.020 Urine Protein 1+ A Urine Glucose (UA) Negative Urine Ketones 3+ A Urine Blood Trace-intact A Urine Nitrite Positive A Urine Bilirubin Negative Urine Urobilinogen 0.2 Ur Leukocyte Esterase 3+ A Urine RBC 0-2 Urine WBC 50-100 A Ur Squamous Epith Cells Few Other Sediment Few A Urine Bacteria Many A Coarse Granular Casts Few A Lab Acknowledgement Test Added Preliminary micro results at discharge 02/02/25 07:44 Urine Culture - Preliminary Urine,Clean Catch Gram negative jasbir Discharge Plan Discharge Disposition: Home, Self-Care Date of Admission: 02/02/25 15:45 Attending Provider on Discharge: Patricia Chris Primary Care Provider: Rut Acosta Condition: Unchanged Anticipated Discharge Date/Time: 02/03/25 09:37 Discharge Medications: New cephalexin 500 mg Capsule 500 mg PO BID 5 Days Qty: 10 0RF Continued omeprazole 20 mg capsule,delayed release(DR/EC) 20 mg PO .every other day Qty: 90 1RF cyanocobalamin (vitamin B-12) 1,000 mcg tablet extended release 1,000 mcg PO .3 times weekly Qty: 90 1RF atenolol 50 mg tablet 50 mg PO QDAY Qty: 90 3RF Vitron-C 65 mg iron- 125 mg tablet,delayed release (DR/EC) 1 tab PO QDAY Qty: 90 0RF rosuvastatin 10 mg tablet 10 mg PO QDAY Qty: 90 2RF losartan 100 mg tablet 100 mg PO QDAY Qty: 90 2RF Discontinued aspirin [Adult Aspirin Regimen] 81 mg tablet,delayed release (DR/EC) 81 mg PO QDAY donepezil 10 mg tablet 10 mg PO QDAY levothyroxine 100 mcg tablet 100 mcg PO QDAY Qty: 90 2RF metformin 500 mg tablet extended release 24 hr 500 mg PO BID Qty: 180 0RF No Action (DME) lancing device with lancets [Accu-Chek FastClix Lancing Dev] Kit See Rx Instructions .Route Qty: 100 0RF Rx Instructions: Tests once daily (DME) lancets Misc See Rx Instructions .Route Qty: 100 1RF Rx Instructions: Test one time per day (DME) lancets [Accu-Chek Fastclix Lancet Drum] Misc See Rx Instructions .Route Qty: 100 1RF Rx Instructions: As directed (DME) Accu-Chek Arlette Plus test strp Strip MISCELLANEOUS Qty: 100 0RF Rx Instructions: Patient to test once daily Discharge Orders: Discharge Order (Routine); Ordered 02/03/25 Ordered By: Patricia Chris Patient Education: Alzheimer Disease (DC), Fall Prevention for Older Adults (DC) Additional Instructions: Medications to STOP (may worsen appetite or cause more stomach irritation) - METFORMIN - ARICEPT/DONEPEZIL - LEVOTHYROXINE - ASPIRIN See Dr. Acosta again in 2-3 weeks for a recheck and see how things are going with less medications on board. Good idea to consider Memory Care placement given Jai's diagnosis and decline. Activity Level: Activity as Tolerated Diet Detail: per speech therapy recommendations Follow Up Appointments: Rut Acosta MD [Primary Care Provider] - Forms: [employer] Info Instructions
--- NOTE | 2025-02-03 12:39 | REH.OT ---
OT consult order received. Upon arrival, pt. was having difficulty eating breakfast. ST order requested. SW, PT, ST addressed pt. and caregiver needs and OT order no longer needed. Order was cancelled for OT evaluation
--- NOTE | 2025-02-03 13:52 | PC.SOCIAL ---
Discharge planning: Met with pt, and dtrs in room regarding d/c plan. plans to take pt home and then will look into memory care facilities for correction care. Provided family with written information on car attendant care, home health care, memory care assisted living, senior linkage line and home delivered meals. is pleased with MD order for group home worker, PT, OT and bath aid and requested healthcare social worker arrange this with a home care agency able to provide the care as soon as possible and contracted with pt's insurance. domestic laundry worker called and sent referral to [facility], who accepted the referral and will follow up with to schedule visits.
== END 2025-02-03 13:08 | disposition home or self-care (01) ==
LOC: ED 15:02 → MEDSURG 15:46
PROVIDERS: Admitting Provider Family Medicine; Emergency Provider Student in an Organized Health Care Education/Training Program; PCP Family Medicine; Visit Provider Family Medicine
DX: N39.0 Urinary tract infection, site not specified (principal); B96.1 Klebsiella pneumoniae [K. pneumoniae] as the cause of diseases classified elsewhere; R41.0 Disorientation, unspecified; G30.9 Alzheimer's disease, unspecified; F02.C0 Dementia in other diseases classified elsewhere, severe, without behavioral disturbance, psychotic disturbance, mood disturbance, and anxiety; E03.9 Hypothyroidism, unspecified; R53.1 Weakness; Z51.5 Encounter for palliative care; R26.2 Difficulty in walking, not elsewhere classified; Z68.21 Body mass index [BMI] 21.0-21.9, adult; R63.4 Abnormal weight loss; Z74.09 Other reduced mobility; R53.81 Other malaise; E53.8 Deficiency of other specified B group vitamins; M85.80 Other specified disorders of bone density and structure, unspecified site; K21.9 Gastro-esophageal reflux disease without esophagitis; I10 Essential (primary) hypertension; E78.5 Hyperlipidemia, unspecified; E11.9 Type 2 diabetes mellitus without complications; R55 Syncope and collapse; M48.00 Spinal stenosis, site unspecified; Z79.84 Long term (current) use of oral hypoglycemic drugs; R35.0 Frequency of micturition; R32 Unspecified urinary incontinence; Z86.16 Personal history of COVID-19; Z87.09 Personal history of other diseases of the respiratory system; Z98.890 Other specified postprocedural states
CPT/HCPCS: 36415; 71046; 80053; 81001; 83735; 84443; 85025; 87086; 92610; 93005; 97161; 99283; 99284; 99285; A9270; G0378; J7030

== ENCOUNTER 2025-02-09 10:30 | Outpatient (CLI) | payer MEDICARE, OTHER, SELFPAY | END 2025-02-09 10:31 | disposition home or self-care (01) | LOC: NFLDREF 02-15 17:44 | PROVIDERS: PCP Family Medicine; Referring Provider Family Medicine; Visit Provider Internal Medicine | DX: N39.0 Urinary tract infection, site not specified (principal); B96.5 Pseudomonas (aeruginosa) (mallei) (pseudomallei) as the cause of diseases classified elsewhere | CPT/HCPCS: 87086 ==

== ENCOUNTER 2025-02-10 15:40 | Outpatient (CLI) | payer MEDICARE, OTHER, SELFPAY | END 2025-02-10 15:41 | disposition home or self-care (01) | LOC: AMB 02-13 10:29 | PROVIDERS: PCP Family Medicine; Visit Provider Internal Medicine | DX: R55 Syncope and collapse (principal) | CPT/HCPCS: A0425; A0427 ==

== ENCOUNTER 2025-02-10 16:22 | Emergency (ER) | payer MEDICARE, OTHER, SELFPAY ==
--- OUTSIDE RECORDS SUMMARY | 2025-01-24 11:43 | XMS_ITS ---
Author Organization [facility] Address [address] [place] [address] , [address] [place] [address] Phone Care Team Providers Care Used Building Materials Yard Worker Name Role Phone Tamiko Kline MD [phone] Conditions or Problems Problem Name Problem Code Onset Date Status Entry Date Provider Comment Standard Description Annotate Difficulty in walking 099000288 (SNOMED CT) Active Tamiko Kline MD Walking disability Medications No information available. Medications Administered No information available. Allergies, Adverse Reactions, Alerts No information available. Results No information available. Plan of Care Type Date Detail Appointment 10:10 AM Tamiko Thrasher i, MD, [address], [address], [place], [address], Pending order Follow up Pending order Follow up Procedures Code Procedure Name Date Entry Date CPT-G2211 Complex e/m visit add on 202 01/23/06 Vital Signs No information available. Immunizations No information available. Advance Directives No information available.
--- OUTSIDE RECORDS SUMMARY | 2025-01-24 11:43 | XMS_ITS ---
Author Organization [facility] Address [address] [place] [address] , [address] [place] [address] Phone Care Team Providers Care Pedicab Driver Name Role Phone Tamiko Kline MD Conditions or Problems Problem Name Problem Code Onset Date Status Entry Date Provider Comment Standard Description Annotate Difficulty in walking 807838938 (SNOMED CT) Active Tamiko Kline MD Walking disability Medications No information available. Medications Administered No information available. Allergies, Adverse Reactions, Alerts No information available. Results No information available. Plan of Care Type Date Detail Appointment 10:10 AM Tamiko Thrasher i, MD, [address], [address], [place], [address], Pending order Follow up Pending order Follow up Procedures Code Procedure Name Date Entry Date CPT-G2211 Complex e/m visit add on 202 01/23/06 Vital Signs No information available. Immunizations No information available. Advance Directives No information available.
--- OUTSIDE RECORDS SUMMARY | 2025-02-10 16:24 | XMS_ITS | Clinical Summary ---
Author Organization [facility] Address [address] , [address] [place] [address] Phone Care Team Providers Care Alemite Operator Name Role Phone Christie Livingston Conditions or Problems Problem Name Problem Code Onset Date Status Entry Date Provider Comment Standard Description Annotate Difficulty in walking 562385251 (SNOMED CT) 01/24 Active 01/24 Tamiko Kline MD Walking disability Dementia in other diseases classified elsewhere, moderate, without behavioral disturbance , psychotic disturbance , mood disturbance , and anxiety 67785476 (SNOMED CT) 10/09 Active 10/09 Kirstie Carbajal Dementia Alzheimer's disease, moderate 86223206 (SNOMED CT) 10/09 Active 10/09 Tamiko Kline MD Alzheimer's disease Dementia, moderate 30909512 (SNOMED CT) 10/09 Inactive 10/09 Tamiko Kline MD Dementia Ischemic vascular disease 70694299 (SNOMED CT) 06/09 Active 06/09 Chloe Gisel Cherucheril PA-C Ischemia Abnormal brain MRI 886088314 (SNOMED CT) 06/09 Active 06/09 Chloe Gisel Cherucheril PA-C Magnetic resonance imaging of brain abnormal Hyperlipide tim 56871167 (SNOMED CT) 05/11 Active 05/11 Cristi Lewis MD Hyperlipidemia Hypertensio n 42381461 (SNOMED CT) 05/11 Active 05/11 Cristi Lewis MD Hypertensive disorder Hx of diabetes mellitus (DM), type 2 774827632 (SNOMED CT) 05/11 Active 05/11 Cristi Lewis MD History of diabetes mellitus type 2 Short term memory loss 902658149 ([facility] CT) 05/11 Active 05/11 Cristi Lewis MD Poor short-term memory Cognitive changes 823091798 ([facility] CT) 05/11 Active 05/11 Cristi Lewis MD Impaired cognition B12 deficiency 187059636 ([facility] CT) 05/11 Active 05/11 Cristi Lewis MD Cobalamin deficiency Medications Medication Instructions Start Date Stop Date Generic Name NDC Provider ACCU-CHEK YUDY PLUS STRP USE STRIP TO CHECK GLUCOSE ONCE DAILY 01/31 blood sugar diagnostic [id number] Tamiko Kline MD YUMVS GLUCOSE GUMMIES 2 GM CHEW as needed 01/31 glucose 44437662179 Tamiko Kline MD SM IRON 325 (65 Fe) MG TABS 1 tab daily 01/31 ferrous sulfate 33846683100 Tamiko Kline MD REMICADE 100 MG SOLR infusion every other month for RA 01/31 infliximab 28315055855 Tamiko Kline MD PRESERVISION AREDS CAPS 2 caps daily 01/31 vitamins a,c,y-gkzj-nvbczl 70159588179 Tamiko Kline MD aspirin 81 mg capsule aspirin Tamiko leeC vitron-C Tamiko Kline MD DONEPEZIL HCL 10 MG TABS take 1 tab (10 mg) by mouth at bedtime. 10/11 donepezil [id number] Caitlyn March PA-C DONEPEZIL HCL 10 MG TABS TAKE 1 TABLET BY MOUTH AT BEDTIME 10/01 donepezil 58240511916 Tamiko Kline MD SIMVASTATIN 20 MG TABS 02/03 simvastatin 77421797793 Chloe Callaway PA-C ROSUVASTATIN CALCIUM 10 MG TABS rosuvastatin 85520401552 Chloe Callaway PA-C DONEPEZIL HCL 5 MG TABS take 1 tab by mouth at bedtime. After 1 month, increase to 2 tab (10 mg) by mouth at bedtime. 06/09 donepezil [id number] Chloe Giselmarlon Callaway PA-C DONEPEZIL HCL 10 MG TABS take 1 tab (10 mg) by mouth at bedtime. 10/11 donepezil [id number] Chloe Callaway PA-C ACCU-CHEK YUDY PLUS STRP USE STRIP TO CHECK GLUCOSE ONCE DAILY 01/31 blood sugar diagnostic 19799255376 Chloe Callaway PA-C HYDROCHLOROTHIAZIDE 25 MG TABS hydrochlorothiaz i de 36710103836 Chloe Callaway PA-C SIMVASTATIN 20 MG TABS 02/03 simvastatin 30246339243 Chloe Callaway PA-C LEVOTHYROXINE SODIUM 100 MCG TABS levothyroxine 80489849282 Chloe Callaway PA-C OMEPRAZOLE 20 MG CPDR omeprazole 49044868313 Chloe Callaway PA-C LOSARTAN POTASSIUM 100 MG TABS losartan 76953009481 Chloe Callaway PA-C ATENOLOL 50 MG TABS 1 tab BID atenolol 559772296 10 Chloe Callaway PA-C METFORMIN HCL ER 500 MG [id number] 1 tab BID metformin 21891247120 Chloe Callaway PA-C VITAMIN B-12 1000 MCG TABS 1 tab daily cyanocobalamin (vitamin b-12) 83630395848 Chloe Callaway PA-C PRESERVISION AREDS CAPS 2 caps daily 01/31 vitamins a,c,l-qodr-ysjqzf 76275651823 Chloe Callaway PA-C REMICADE 100 MG SOLR infusion every other month for RA 01/31 infliximab 23549476159 Chloe Callaway PA-C SM IRON 325 (65 Fe) MG TABS 1 tab daily 01/31 ferrous sulfate 01445847451 Chloe Callaway [facility] GNP GLUCOSE GUMMIES 2 GM CHEW as needed 01/31 glucose 26624806020 Chloe Gisel Callaway [facility] DONEPEZIL HCL 5 MG TABS take 1 tab by mouth at bedtime. After 1 month, increase to 2 tab (10 mg) by mouth at bedtime. 06/09 donepezil [id number] Chloe Callaway [facility] Medications Administered No information available. Allergies, Adverse [...] Done Documenta tion of current medications (procedure) [id number] Mild Total scor e [MoCA] MMSE SCORE 23 Total scor e [MMSE] Office Visit: fax DEMENTIA2 Assessment of cognition performed and results reviewed. Total score [MMSE] [id number] Moderate Total sco re [MoCA] SLUMSSCORE 11 Total scor e [MMSE] DEMENTIA1 Mild Cognitive Impairment Total score [MMSE] Internal Other: Verbal Autho rization/Emergency Contact - OBS VERBAL_EMER Done Verbal authorization and emergency contact Plan of Care Type Date Detail Appointment 10:10 AM Tamiko Thrasher i, MD, [address], [address], [place], [address], Pending order Follow up Pending order Follow [...] on 202 01/23/06 ORDERS Follow up KIMBERLY [id number] SLUMS CPT-G2211 Complex e/m visit add on 202 12/30/18 CPT-D7464R MultiHance Gadoliniu m-based MR Contrast - 15 ml vial CPT-84901 MRA Neck W/WO [id number] MRA-Neck W/WO ORDERS Patient Instructions LOINC 34789-7 MMSE ORDERS Patient Instructions ORDERS Follow up KRANTHI ORDERS Follow up ORDERS Follow up KRANTHI [id number] MRA-Head W/O [id number] MRA-Neck W/WO CPT-23619 MRA Head W/O CPT-75664 MRA Neck W/WO CPT-M6869U ProHance Gadolinium- based MR Contrast - 15 ml vial ORDERS Lipid Panel with LDL /HDL Ratio - fasting after midnight ORDERS Obtain outside records 06/09 ORDERS Obtain outside records 06/09 ORDERS Instructions for Staff 06/09 ORDERS Follow up after testing 2022 [id number] MRI-Brain W/O CPT-99148 MRI Brain W/O ORDERS 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
--- OUTSIDE RECORDS SUMMARY | 2025-02-10 16:24 | XMS_ITS | Clinical Summary ---
Author Organization [facility] Address [place] [address] Care Team Providers Care Youth Officer Name Role Phone Pcp, No Primary Care [...] Department Care Team Description 01/25/2025 Telephone [facility] [address] [facility] [address] [place] [address] Unknown, Doctor Questions (Medication List) from Last 3 Months Immunizations Immunization Administration Dates Next Due COVID-19 vaccine (Moderna 100mcg/0.5mL) RAFIA ESPINOZA 06/28/2021 COVID-19 vaccine (GaleneaBio NTech 30mcg/0.3mL) PF, MDV 12/05/2020,11/14/2020 Hepatitis A [...] on file Legal Sex Female 7:32 AM 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 MACHINE 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 Gender Identity Not on file Sexual Orientation Not on file Obstetrics History Last Filed Vital Signs Vital Sign Reading Time Taken Comments Blood Pressure 114/56 08/01/2024 10:35 AM UPSETTING MACHINE OPERATOR Pulse 58 08/01/2024 10:35 AM UPSETTING MACHINE OPERATOR Temperature 36.1 C (97 F) 08/01/2024 10:35 AM UPSETTING MACHINE OPERATOR Respiratory Rate 16 08/01/2024 10:35 AM UPSETTING MACHINE OPERATOR Oxygen Saturation 98% 08/01/2024 10:35 AM UPSETTING MACHINE OPERATOR Inhaled Oxygen Concentration - - [...] 12/06/2021, 12/11/2020 Medicare Wellness for age 65+ 12/07/2022 12/06/2021, 07/24/2020 ([facility]) Tetanus booster 10/13/2023 10/13/2013 COVID-19 vaccine series ( season) 2024 06/09/2024, 01/07/2024, 07/01/2023, Additional history exists Influenza Vaccine (Season Ended) 2025 07/13/2021, 06/26/2020, 07/20/2019, Additional history exists Tdap Completed 10/13/2013 Pneumococcal series for age 50+ Completed 11/13/2015, 11/13/2015, 10/24/2008, Additional history exists Hepatitis B series for 19+ Aged Out N o longer eligible based on patient's age to complete this topic Medical Devices Implanted Type Area Cloth Grader Device Identifier Shelf Expiration Date Model / Serial / Lot Mesh Y-Sling Intepro Lg - [id number] Implanted:Qty: 1 on 10/29/2010 at [facility] Vagina [employer] 04/29/2011 [id number] / / [id number] Device Tvt Exact Retropubic Sys Sling - [id number] Implanted:Qty: 1 on 10/29/2010 at [facility] Bilateral: Urethra J And J [employer] / Uro 06/21/2011 [id number] / / [id number] [place] [address] MEDICARE PART B HB ONLY MEDICARE PART A HB ONLY MEDICA SELECT SOLUTION MEDICARE PB ONLY MEDICARE [place]ER [place] [address] MEDICARE PROVIDER BASED Advance Directives * Full Code (Latest Code Status on File) Date Activated Date Inactivated Comments 10/29/2010 11:47 AM 10/31/2010 2:03 PM Care Teams Youth Officer Relationship Specialty Start Date End Date Pcp, No . PCP - General 08/01/24
[2025-02-10 16:33] VITALS: BP 132/53; PULSE 56; RESP 16; TEMP 36; O2SAT 97; BMI 21.5
--- NOTE | 2025-02-10 16:37 | ED.GENADULT ---
HPI - General Adult General Chief complaint: Syncope/Fainted Stated complaint: Syncopal Time Seen by Provider: 02/10/25 16:23 Source: patient and EMS Mode of arrival: EMS Limitations: other (dementia) History of Present Illness HPI narrative: 80-year-old female presenting today after syncopal episode. She said the porch with her daughter when all the sudden she passed out. EMS was called and they noted that they tried to stand her up to get her into the ambulance and she passed out again. There was no shaking or evidence of seizure activity. She was quick to regain consciousness. Patient states she has been feeling fine and denies any recent illness or concerns. She denies any pain. She has no headache or changes in her vision or hearing. She denies any changes in her appetite recently. Today after she passed out she did feel very nauseated and received Zofran in the ambulance, has not vomited. EMS noted her blood pressure was 80 systolic when they arrived. She received 500 mL of normal saline, systolic blood pressure increased to 113 upon arrival. Patient was admitted overnight last week from [address] [place] [address] secondary to increasing weakness. She did have a UTI at that time and was discharged on Keflex. Related Data Previous Rx's ?Medication ?Instructions ?Recorded lancing device with lancets kit #100 ea 04/18/22 (Accu-Chek FastClix Lancing Device kit) lancets #100 ea 10/13/22 lancets (Accu-Chek Fastclix Lancet #100 ea 10/16/22 Drum) cyanocobalamin (vitamin B-12) 1,000 mcg PO .3 times weekly #90 07/05/24 1,000 mcg tablet,extended release tabs omeprazole 20 mg capsule,delayed 20 mg PO .every other day #90 caps 07/05/24 release atenolol 50 mg tablet 50 mg PO QDAY #90 tabs 08/03/24 iron,carbonyl 65 mg-vitamin C 125 1 tab PO QDAY #90 tabs 08/22/24 mg tablet,delayed release (Vitron-C) losartan 100 mg tablet 100 mg PO QDAY #90 tabs 10/04/24 rosuvastatin 10 mg tablet 10 mg PO QDAY #90 tabs 10/04/24 blood sugar diagnostic (Accu-Chek #100 ea 11/25/24 Arlette Plus test strips) donepezil 10 mg tablet 10 mg PO QDAY #90 tabs 02/08/25 levothyroxine 100 mcg capsule 100 mcg PO QDAY #90 caps 02/08/25 ciprofloxacin HCl 500 mg tablet 250 mg (1/2 x 500 mg) PO BID 5 02/10/25 days #5 tabs Allergies Allergy/AdvReac Type Severity Reaction Status Date / Time Sulfa (Sulfonamide Allergy Unknown Unknown Verified 02/08/25 13:46 Antibiotics) Review of Systems Status of ROS: Reports: unobtainable due to mental status [facility] Medical History Back pain ?M54.9 - Dorsalgia, unspecified (ICD-10) UTI (urinary tract infection) ?N39.0 - Urinary tract infection, site not specified (ICD-10) Hypothyroidism ?E03.9 - Hypothyroidism, unspecified (ICD-10) Alzheimer's dementia ?G30.9 - Alzheimer's disease, unspecified (ICD-10) ?F02.80 - Dementia in other diseases classified elsewhere, unspecified severity, without behavioral disturbance, psychotic disturbance, mood disturbance, and anxiety (ICD-10) Debility ?R53.81 - Other malaise (ICD-10) Generalized weakness ?R53.1 - Weakness (ICD-10) Weight loss ?R63.4 - Abnormal weight loss (ICD-10) Poor mobility ?Z74.09 - Other reduced mobility (ICD-10) Palliative care encounter ?Z51.5 - Encounter for palliative care (ICD-10) RA (rheumatoid arthritis) (09/23/12) ?M06.9 - Rheumatoid arthritis, unspecified (ICD-10) Hypothyroid (09/23/12) ?E03.9 - Hypothyroidism, unspecified (ICD-10) Hyperlipidemia (05/11/23) ?E78.5 - Hyperlipidemia, unspecified (ICD-10) HTN (hypertension) (09/23/12) ?I10 - Essential (primary) hypertension (ICD-10) GERD (gastroesophageal reflux disease) (09/23/12) ?K21.9 - Gastro-esophageal reflux disease without esophagitis (ICD-10) B12 deficiency (05/11/23) ?E53.8 - Deficiency of other specified B group vitamins (ICD-10) Ischemic vascular disease (06/09/23) ?I99.8 - Other disorder of circulatory system (ICD-10) Difficulty in walking (01/24/25) ?R26.2 - Difficulty in walking, not elsewhere classified (ICD-10) Abnormal brain MRI (06/09/23) ?R90.89 - Other abnormal findings on diagnostic imaging of central nervous system (ICD-10) Spinal stenosis ?M48.00 - Spinal stenosis, site unspecified (ICD-10) Recurrent syncope (08/2024) ?R55 - Syncope and collapse (ICD-10) Sinus bradycardia by electrocardiogram (08/01/24) ?R00.1 - Bradycardia, unspecified (ICD-10) Alzheimer's dementia ?G30.9 - Alzheimer's disease, unspecified (ICD-10) ?F02.80 - Dementia in other diseases classified elsewhere, unspecified severity, without behavioral disturbance, psychotic disturbance, mood disturbance, and anxiety (ICD-10) Health care directive on file ?Z78.9 - Other specified health status (ICD-10) Memory problem (02/06/23) ?R41.3 - Other amnesia (ICD-10) CKD (chronic kidney disease) stage 3, GFR 30-59 ml/min ?N18.30 - Chronic kidney disease, stage 3 unspecified (ICD-10) Shingles (~03/2022) ?B02.9 - Zoster without complications (ICD-10) Vitamin B 12 deficiency (~02/2022) ?E53.8 - Deficiency of other specified B group vitamins (ICD-10) COVID ?U07.1 - COVID-19 (ICD-10) Type 2 diabetes mellitus (2007) ?E11.9 - Type 2 diabetes mellitus without complications (ICD-10) Systolic murmur (~2021) ?R01.1 - Cardiac murmur, unspecified (ICD-10) Multiple episodes of hypoglycemia ?E16.2 - Hypoglycemia, unspecified (ICD-10) Hypertension (1991) ?I10 - Essential (primary) hypertension (ICD-10) History of chronic cough ?Z87.09 - Personal history of other diseases of the respiratory system (ICD-10) History of benign breast biopsy (1972) ?Z98.890 - Other specified postprocedural states (ICD-10) Gastroesophageal reflux disease (2014) ?K21.9 - Gastro-esophageal reflux disease without esophagitis (ICD-10) Surgical History History of tonsillectomy and adenoidectomy (1946) ?Z90.89 - Acquired absence of other organs (ICD-10) History of hysterectomy for benign disease (2002) ?Z90.710 - Acquired absence of both cervix and uterus (ICD-10) History of colonoscopy (03/02/13) ?Z98.890 - Other specified postprocedural states (ICD-10) History of cataract extraction (2018) ?Z98.49 - Cataract extraction status, unspecified eye (ICD-10) History of arthroscopy of left knee (2001) ?Z98.890 - Other specified postprocedural states (ICD-10) Family History Son Asthma Sister Breast cancer Mother Diabetes Father Myocardial infarction, Onset Age: 68 Social History Narrative: She is , lives at home with her to his primary full-time caregiver. 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 They have begun to discuss goals of care and palliative care. She does not drink. She does not smoke. She has a walker but does not use it regularly What is your current living situation?: I presently have a place to live Problems where you live: no known problems Problems where you live details: none In the past 12 months, utilities in danger of being shut off: no In past 12 months, lack of transportation kept you from medical appts, meetings, work, or getting things needed for daily living: no In the past 12 mos, have been you worried that your food would run out before you had money to buy more?: never true In the past 12 mos, the food you bought just didn't last and you didn't have money to buy more?: never true Smoking Status: Never smoker Do you use any of these nicotine containing products: None Second hand tobacco smoke exposure: No How often do you have a drink containing alcohol: never How often do you have six or more drinks on one occasion: Never AUDIT-C Alcohol total score: 0 Non-prescribed substance use: denies use Caffeine: Yes (2 cups) How often does anyone, including family, friends and others, physically hurt you: unable to answer How often does anyone, including family, friends and others, insult or talk down to you: unable to answer How often does anyone, including family, friends and others, threaten you with harm: unable to answer How often does anyone, including family, friends and others, scream or curse at you: unable to answer service: No Exam Narrative: Exam Narrative: Well-nourished well-developed patient in no acute distress. Answers most questions with yes or no. Patient has obvious dementia. HEENT: Normocephalic atraumatic. Pupils are equally round reactive to light. Extraocular muscles are intact. Conjunctivae are moist without any icterus noted. Conjunctiva are pale. Dry mucous membranes. Posterior pharynx is normal. Neck is soft without lymphadenopathy. Cardiovascular: Heart is regular rate and rhythm. Lungs: Decreased breath sounds bilaterally with no wheezes rhonchi or rales appreciated. Patient takes deep breaths without any discomfort. Abdomen: Soft and nontender nondistended with normal bowel sounds. Extremities: Bilateral lower extremities are without edema. Normal DP and PT pulses. Skin: Well perfused without any obvious rashes. No significant abnormal bruising noted. Const: Vital Signs, click to edit/add: Vital Signs - 24 hr 02/10/25 16:33 02/10/25 17:04 02/10/25 17:15 Temperature 96.8 F L Pulse Rate [Pulse Oximeter] 56 L Pulse Rate [orthos tatic lying] 57 L Pulse Rate [orthos tatic sitting] 60 Pulse Rate [orthos tatic standing] 62 Respiratory Rate 16 Blood Pressure [[facility]] 132/53 L Blood Pressure [or thostatic lying] 110/58 L Blood Pressure [or thostatic sitting] 118/91 H Blood Pressure [or thostatic standing ] 108/62 Pulse Oximetry 97 97 Oxygen Delivery Me thod Room Air Course Course ED Course: EKG, read by me, shows sinus bradycardia with a pulse of 57. She does have very mild ST elevation throughout all leads, not consistent with an STEMI. Normal QRS, QTC and UT intervals. Orthostatic vitals did show changes. Her systolic blood pressure did drop 10 points upon standing and she did feel weak, no syncope. Her diastolic blood pressure dropped 33 points when she went from sitting to standing. But it also went up 29 points when she went from lying to sitting. Patient receives another 250 mL of normal saline over an hour. Blood work was unremarkable. Unable to get a urine specimen. UA done yesterday shows evidence of continued infection. Urine culture done from 02/02 to the was positive for Klebsiella which was almost pansensitive. Will treat with ciprofloxacin 250 mg p.o. b.i.d. for 5 days. Cut losartan and atenolol in half. Vital Signs Vital signs: Initial Vital Signs Temperature 96.8 F L 02/10/25 16:33 Temperature Source Temporal Artery Scan 02/10/25 16:33 Pulse Rate 56 L 02/10/25 16:33 Pulse Rhythm Regular 02/10/25 16:33 Respiratory Rate 16 02/10/25 16:33 Blood Pressure 132/53 L 02/10/25 16:33 Blood Pressure Mean 79 02/10/25 16:33 Blood Pressure Position Supine 02/10/25 16:33 Pulse Oximetry 97 02/10/25 16:33 Oxygen Delivery Method Room Air 02/10/25 16:33 Vital Signs Temperature 96.8 F L 02/10/25 16:33 Pulse Rate 56 L 02/10/25 16:33 Respiratory Rate 16 02/10/25 16:33 Blood Pressure 132/53 L 02/10/25 16:33 Pulse Oximetry 97 02/10/25 16:33 Oxygen Delivery Method Room Air 02/10/25 16:33 Temperature 96.8 F L 02/10/25 16:33 Pulse Rate 57 L 02/10/25 17:04 Respiratory Rate 16 02/10/25 16:33 Blood Pressure 110/58 L 02/10/25 17:04 Pulse Oximetry 97 02/10/25 17:15 Oxygen Delivery Method Room Air 02/10/25 16:33 Medications Administered Medications: Generic Name Dose Route Start Last Admin Trade Name Freq PRN Reason Stop Dose Admin Sodium Chloride 250 mls @ 250 mls/hr 02/10/25 19:04 02/10/25 19:11 0.9 % Sodium Chloride 250 Ml IV 02/10/25 20:03 250 mls/hr .Q1H ONE Administration Medical Decision Making MDM Narrative Medical decision making narrative: 80-year-old female with syncope today. Patient has had multiple episodes of syncope in the past and has had a full cardiology workup. Daughter states that this is not new for her. Concerns about UTI. Daughter understands the treatment of UTI will not change overall mentation and status of patient. Lab Data Lab results reviewed: Yes I reviewed the patient's lab results Labs: Lab Results 02/10/25 02/10/25 02/10/25 Range/Units 17:07 17:10 17:15 WBC 7.60 (4.50-11.00) K/uL RBC 4.04 (4.00-5.20) m/uL Hgb 10.9 L (12.0-16.0) gm/dL Hct 33.8 (33.0-51.0) % MCV 84 (80-100) fL MCH 27 (26-34) pg MCHC 32 (32-36) gm/dL RDW Coeff of Brittanie 13.1 (11.5-15.5) % Plt Count 230 (140-440) K/uL Neut % (Auto) 63.8 (42.0-72.0) % Lymph % (Auto) 22.5 (20-44) % [place] % (Auto) 9.3 (0.0-11.0) % Eos % (Auto) 3.7 (0.0-7.0) % Baso % (Auto) 0.4 (0.0-3.0) % Neut # (Auto) 4.85 (1.7-7.0) K/uL Lymph # (Auto) 1.71 (0.90-2.90) K/uL [place] # (Auto) 0.70 (0.00-0.90) K/UL Eos # (Auto) 0.28 (0.00-0.50) K/uL Baso # (Auto) 0.03 (0.00-0.30) K/uL Abs Immat Gran (auto) 0.02 (0.00-0.30) K/uL Imm/Tot Granulo (auto) 0.3 % ESR 12 (2-20) mm/hr Sodium 135 (135-149) mmol/L Potassium 4.1 (3.6-5.1) mmol/L Chloride 103 (96-114) mmol/L Carbon Dioxide 27 (20-32) mmol/L Anion Gap 5 L (7-15) mEq/L BUN 20 (7-30) mg/dL Creatinine 1.2 (0.5-1.5) mg/dL Estimated Creat Clear 31.21 Estimated GFR 45 ml/min Glucose 165 H (60-115) mg/dL Lactate 1.0 (0.5-1.9) mmol/L Calcium 8.8 (8.4-10.6) mg/dL Magnesium 1.4 L (1.5-2.6) mg/dL Total Bilirubin 0.8 (0.1-1.5) mg/dL Direct Bilirubin 0.2 (0.0-0.5) mg/dL AST 28 (12-35) U/L ALT 19 (4-35) U/L Alkaline Phosphatase 56 (40-150) U/L Troponin I < 0.01 (0.01-0.04) ng/mL C-Reactive Protein < 0.5 L (0.5-1.0) mg/dL NT-Pro-B Natriuret Pep 589 H (See Note) pg/mL Total Protein 6.4 (6.0-8.3) g/dL Albumin 3.7 (3.3-5.0) g/dL Procalcitonin 0.04 (<0.50) ng/mL TSH 3.460 (0.270-4.20) uIU/mL Salicylates < 1.0 L (1.0-10) mg/dL Acetaminophen < 10.0 (10.0-30.0) ug/mL SARS-CoV-2 (PCR) Negative SARS-CoV-2 (Negative) Monoscreen Negative (Negative) POC Troponin I 0.01 (0.01-0.04) ng/ml ECG Data Attestation: I personally reviewed and interpreted this ECG as follows: Discharge Plan Discharge Clinical Impression: Syncope Patient Disposition: Home w/ Parent or Adult Condition: Stable Additional Instructions: Cut atenolol in half so that patient is only taking 25 mg daily. Cut losartan in half so that patient is only taking 50 mg daily. Start new antibiotic for UTI-sent to pharmacy. Can start 1st dose tomorrow morning. Encourage good nutrition. Prescriptions: New ciprofloxacin HCl 500 mg tablet 250 mg PO BID 5 Days Qty: 5 0RF No Action omeprazole 20 mg capsule,delayed release(DR/EC) 20 mg PO .every other day Qty: 90 1RF cyanocobalamin (vitamin B-12) 1,000 mcg tablet extended release 1,000 mcg PO .3 times weekly Qty: 90 1RF atenolol 50 mg tablet 50 mg PO QDAY Qty: 90 3RF donepezil 10 mg tablet 10 mg PO QDAY Qty: 90 3RF levothyroxine 100 mcg capsule 100 mcg PO QDAY Qty: 90 3RF (DME) lancing device with lancets [Accu-Chek FastClix Lancing Dev] Kit See Rx Instructions .Route Qty: 100 0RF Rx Instructions: Tests once daily (DME) lancets Misc See Rx Instructions .Route Qty: 100 1RF Rx Instructions: Test one time per day (DME) lancets [Accu-Chek Fastclix Lancet Drum] Misc See Rx Instructions .Route Qty: 100 1RF Rx Instructions: As directed Vitron-C 65 mg iron- 125 mg tablet,delayed release (DR/EC) 1 tab PO QDAY Qty: 90 0RF rosuvastatin 10 mg tablet 10 mg PO QDAY Qty: 90 2RF losartan 100 mg tablet 100 mg PO QDAY Qty: 90 2RF (DME) Accu-Chek Arlette Plus test strp Strip MISCELLANEOUS Qty: 100 0RF Rx Instructions: Patient to test once daily Follow Up/Referrals: Rut Acosta MD [Primary Care Provider, Family Practice] Stand Alone Forms: [employer] Info Instructions
[2025-02-10 17:04] VITALS: BP 108/62; BP 110/58; BP 118/91; PULSE 57; PULSE 60; PULSE 62
--- OUTSIDE RECORDS SUMMARY | 2025-02-10 17:05 | XMS_ITS | Clinical Summary ---
Author Organization [facility] Address [address] , [address] [place] [address] Phone Care Team Providers Care Retort Pre Cooker Name Role Phone Christie Livingston Conditions or Problems Problem Name Problem Code Onset Date Status Entry Date Provider Comment Standard Description Annotate Difficulty in walking 250991298 (SNOMED CT) 01/24 Active 01/24 Tamiko Kline MD Walking disability Dementia in other diseases classified elsewhere, moderate, without behavioral disturbance , psychotic disturbance , mood disturbance , and anxiety 49609350 (SNOMED CT) 10/09 Active 10/09 Kirstie Carbajal Dementia Alzheimer's disease, moderate 16447276 (SNOMED CT) 10/09 Active 10/09 Tamiko Kline MD Alzheimer's disease Dementia, moderate 69935749 (SNOMED CT) 10/09 Inactive 10/09 Tamiko Kline MD Dementia Ischemic vascular disease 92598764 (SNOMED CT) 06/09 Active 06/09 Chloe Gisel Cherucheril PA-C Ischemia Abnormal brain MRI 059388498 (SNOMED CT) 06/09 Active 06/09 Chloe Gisel Cherucheril PA-C Magnetic resonance imaging of brain abnormal Hyperlipide tim 76276214 (SNOMED CT) 05/11 Active 05/11 Cristi Lewis MD Hyperlipidemia Hypertensio n 39801154 (SNOMED CT) 05/11 Active 05/11 Cristi Lewis MD Hypertensive disorder Hx of diabetes mellitus (DM), type 2 772439058 (SNOMED CT) 05/11 Active 05/11 Cristi Lewis MD History of diabetes mellitus type 2 Short term memory loss 386552557 ([facility]) 05/11 Active 05/11 Cristi Lewis MD Poor short-term memory Cognitive changes 267622983 ([facility] CT) 05/11 Active 05/11 Cristi Lewis MD Impaired cognition B12 deficiency 122186939 ([facility] CT) 05/11 Active 05/11 Cristi Lewis MD Cobalamin deficiency Medications Medication Instructions Start Date Stop Date Generic Name NDC Provider ACCU-CHEK YUDY PLUS STRP USE STRIP TO CHECK GLUCOSE ONCE DAILY 01/31 blood sugar diagnostic [id number] Tamiko Kline MD YUMVS GLUCOSE GUMMIES 2 GM CHEW as needed 01/31 glucose 60403997316 Tamiko Kline MD SM IRON 325 (65 Fe) MG TABS 1 tab daily 01/31 ferrous sulfate 66532846960 Tamiko Kline MD REMICADE 100 MG SOLR infusion every other month for RA 01/31 infliximab [id number] Tamiko Kline MD PRESERVISION AREDS CAPS 2 caps daily 01/31 vitamins a,c,d-jkkk-sgsuhv [id number] Tamiko Kline MD aspirin 81 mg capsule aspirin Tamiko leeC vitron-C Tamiko Kline MD DONEPEZIL HCL 10 MG TABS take 1 tab (10 mg) by mouth at bedtime. 10/11 donepezil [id number] Caitlyn March PA-C DONEPEZIL HCL 10 MG TABS TAKE 1 TABLET BY MOUTH AT BEDTIME 10/01 donepezil [id number] Tamiko Kline MD SIMVASTATIN 20 MG TABS 02/03 simvastatin [id number] Chloe Callaway PA-C ROSUVASTATIN CALCIUM 10 MG TABS rosuvastatin [id number] Chloe Callaway PA-C DONEPEZIL HCL 5 MG TABS take 1 tab by mouth at bedtime. After 1 month, increase to 2 tab (10 mg) by mouth at bedtime. 06/09 donepezil [id number] Chloe Giselmarlon Callaway PA-C DONEPEZIL HCL 10 MG TABS take 1 tab (10 mg) by mouth at bedtime. 10/11 donepezil [id number] Chloe Callaway PA-C ACCU-CHEK YUDY PLUS STRP USE STRIP TO CHECK GLUCOSE ONCE DAILY 01/31 blood sugar diagnostic 30419890900 Chloe Callaway PA-C HYDROCHLOROTHIAZIDE 25 MG TABS hydrochlorothiaz i de [id number] Chloe Callaway PA-C SIMVASTATIN 20 MG TABS 02/03 simvastatin 93510843811 Chloe Callaway PA-C LEVOTHYROXINE SODIUM 100 MCG TABS levothyroxine 98149215708 Chloe Callaway PA-C OMEPRAZOLE 20 MG CPDR omeprazole 24306273771 Chloe Callaway PA-C LOSARTAN POTASSIUM 100 MG TABS losartan 46604009417 Chloe Callaway PA-C ATENOLOL 50 MG TABS 1 tab BID atenolol 125334986 10 Chloe Callaway PA-C METFORMIN HCL ER 500 MG [id number] 1 tab BID metformin [id number] Chloe Callaway PA-C VITAMIN B-12 1000 MCG TABS 1 tab daily cyanocobalamin (vitamin b-12) 01745877999 Chloe Callaway PA-C PRESERVISION AREDS CAPS 2 caps daily 01/31 vitamins a,c,s-ocwn-ajwfsm 47832464582 Chloe Callaway PA-C REMICADE 100 MG SOLR infusion every other month for RA 01/31 infliximab 61526636341 Chloe Callaway PA-C SM IRON 325 (65 Fe) MG TABS 1 tab daily 01/31 ferrous sulfate 76281577037 Chloe Callaway [facility] G[facility] GLUCOSE GUMMIES 2 GM CHEW as needed 01/31 glucose 50962869280 Chloe Gisel Callaway [facility] DONEPEZIL HCL 5 MG TABS take 1 tab by mouth at bedtime. After 1 month, increase to 2 tab (10 mg) by mouth at bedtime. 06/09 donepezil [id number] Chloe Callaway [facility] Medications Administered No information available. Allergies, Adverse [...] Done Documenta tion of current medications (procedure) [id number] Mild Total scor e [MoCA] MMSE SCORE 23 Total scor e [MMSE] Office Visit: fax DEMENTIA2 Assessment of cognition performed and results reviewed. Total score [MMSE] [id number] Moderate Total sco re [MoCA] SLUMSSCORE 11 Total scor e [MMSE] DEMENTIA1 Mild Cognitive Impairment Total score [MMSE] Internal Other: Verbal Autho rization/Emergency Contact - OBS VERBAL_EMER Done Verbal authorization and emergency contact Plan of Care Type Date Detail Appointment 10:10 AM Tamiko Thrasher i, MD, [address], [address], [place], [address], Pending order Follow up Pending order Follow [...] on 202 01/23/06 ORDERS Follow up KIMBERLY [id number] SLUMS CPT-G2211 Complex e/m visit add on 202 12/30/18 CPT-L4579D MultiHance Gadoliniu m-based MR Contrast - 15 ml vial CPT-84235 MRA Neck W/WO [id number] MRA-Neck W/WO ORDERS Patient Instructions LOINC 93079-5 MMSE ORDERS Patient Instructions ORDERS Follow up KRANTHI ORDERS Follow up ORDERS Follow up KRANTHI [id number] MRA-Head W/O [id number] MRA-Neck W/WO CPT-18612 MRA Head W/O CPT-98646 MRA Neck W/WO CPT-K7894D ProHance Gadolinium- based MR Contrast - 15 ml vial ORDERS Lipid Panel with LDL /HDL Ratio - fasting after midnight ORDERS Obtain outside records 06/09 ORDERS Obtain outside records 06/09 ORDERS Instructions for Staff 06/09 ORDERS Follow up after testing 2022 [id number] MRI-Brain W/O CPT-92384 MRI Brain W/O ORDERS 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
[2025-02-10 17:11] LABS: Basophils Absolute Auto 0.03 K/uL (0.00-0.30); Basophils Percent Auto 0.4 % (0.0-3.0); Eosinophils Absolute Auto 0.28 K/uL (0.00-0.50); Eosinophils Percent Auto 3.7 % (0.0-7.0); Hematocrit 33.8 % (33.0-51.0); Hemoglobin* 10.9 gm/dL (12.0-16.0); Immature Granulocytes Abs Auto 0.02 K/uL (0.00-0.30); Immature Granulocytes Pct Auto 0.3 %; Lymphocytes Absolute Auto 1.71 K/uL (0.90-2.90); Lymphocytes Percent Auto 22.5 % (20-44); Mean Corpuscular HGB Conc 32 gm/dL (32-36); Mean Corpuscular Hemoglobin 27 pg (26-34); Mean Corpuscular Volume 84 fL (80-100); Monocytes Percent Auto 9.3 % (0.0-11.0); Neutrophils Absolute Auto 4.85 K/uL (1.7-7.0); Neutrophils Percent Auto 63.8 % (42.0-72.0); Platelet Count* 230 K/uL (140-440); RDW Coefficient of Variation % 13.1 % (11.5-15.5); Red Blood Count 4.04 m/uL (4.00-5.20)
[2025-02-10 17:12] LABS: Slide Review Reflex No
[2025-02-10 17:15] VITALS: O2SAT 97
[2025-02-10 17:18] LABS: Troponin, Point-of-Care* 0.01 ng/ml (0.01-0.04)
[2025-02-10 17:19] LABS: Mono Screen* Negative (Negative)
[2025-02-10 17:25] LABS: Chloride* 103 mmol/L (96-114)
[2025-02-10 17:26] LABS: Albumin* 3.7 g/dL (3.3-5.0); Potassium* 4.1 mmol/L (3.6-5.1); Sodium* 135 mmol/L (135-149)
[2025-02-10 17:28] LABS: Blood Urea Nitrogen* 20 mg/dL (7-30); Creatinine* 1.2 mg/dL (0.5-1.5); Est. Creatinine Clearance* 31.21; Estimated Glomerular Filt Rate 45 ml/min
[2025-02-10 17:29] LABS: Alanine Aminotransferase* 19 U/L (4-35); Alkaline Phosphatase* 56 U/L (40-150); Anion Gap 5 mEq/L (7-15); Aspartate Amino Transferase* 28 U/L (12-35); Bilirubin Direct* 0.2 mg/dL (0.0-0.5); Bilirubin Total* 0.8 mg/dL (0.1-1.5); Calcium* 8.8 mg/dL (8.4-10.6); Carbon Dioxide* 27 mmol/L (20-32); Glucose* 165 mg/dL (60-115); Magnesium* 1.4 mg/dL (1.5-2.6); Total Protein* 6.4 g/dL (6.0-8.3)
[2025-02-10 17:33] LABS: Acetaminophen* < 10.0 ug/mL (10.0-30.0); C Reactive Protein* < 0.5 mg/dL (0.5-1.0); Salicylate* < 1.0 mg/dL (1.0-10)
[2025-02-10 17:45] LABS: Procalcitonin* 0.04 ng/mL (<0.50)
[2025-02-10 17:49] LABS: SARS PCR* Negative SARS-CoV-2 (Negative)
[2025-02-10 17:52] LABS: Erythrocyte SedimentationRate* 12 mm/hr (2-20)
[2025-02-10 17:54] LABS: NT Pro B Type NatriureticPept* 589 pg/mL (See Note); Troponin I* < 0.01 ng/mL (0.01-0.04)
[2025-02-10] MEDS: 0.9 % SODIUM CHLORIDE 250 ml 250 ML IV (19:11)
[2025-02-10 20:09] VITALS: BP 110/74; PULSE 68; RESP 16; TEMP 36.2; O2SAT 98
== END 2025-02-10 20:11 | disposition home or self-care (01) ==
PROVIDERS: Emergency Provider Family Medicine; PCP Family Medicine
DX: R55 Syncope and collapse (principal)
CPT/HCPCS: 36415; 80048; 80076; 80143; 80179; 80306; 81001; 83605; 83735; 83880; 84145; 84443; 84484; 85025; 85651; 86140; 86308; 87086; 87635; 93005; 94761; 99284; J7050